=== PATIENT | female | born 1940 | race Caucasian/White ===

== ENCOUNTER 2017-03-18 22:57 | Emergency (ER) | payer MEDICARE, BC ==
[2017-03-18 23:05] VITALS: RESP 18
[2017-03-19] MEDS ORDERED: predniSONE 20 MG TAB PO STA (00:06)
[2017-03-19] MEDS ORDERED: IBUPROFEN 600 MG STARTER PACK 4 TAB BTL PO STA (00:07)
--- NOTE | 2017-03-19 00:15 | ED ---
General Adult HPI - General Chief complaint: Back Pain/Injury Stated complaint: Leg Pain Time Seen by Provider: 03/18/17 23:35 Source: patient, family, RN notes reviewed Mode of arrival: wheelchair Limitations: no limitations - History of Present Illness Initial comments: Chief complaint and history of present illness 76-year-old female here with her . The patient had for 6 months diagnosis of degenerative disc disease and right sided sciatica. The patient is seeing a chiropractor who she states is helping with the therapy provided. - Related Data Previous Rx's Medication Instructions Recorded methylPREDNISolone Dose Pack 4 mg PO DIRECTED #21 package 03/19/17 [Medrol Dose Pack] Allergies Allergy/AdvReac Type Severity Reaction Status Date / Time aspirin AdvReac Nausea Verified 03/18/17 23:05 Review of Systems ROS Statement: Those systems with pertinent positive or pertinent negative responses have been documented in the HPI. Review of systems no complaint of visual acuity changes no headache no chest pain or shortness of breath no intestinal problems. Patient reports when she is to take Tylenol threes she was constipated so she stopped them. She had used aspirin once the past and she states probably too many of them which caused stomach irritation so she does not have an ALLERGY but she did overuse and the one time. The patient has been taking Tylenol tablets 8 per day without resolution of the pain in her sciatic region. She wants something different. She has had steroids in the past and she is currently taking didn't provide and metformin to control sugars. Past medical problems significant for non-insulin diabetes mellitus, chronic back pain. She's had uterine ablation. Nonsmoker nondrinker family history noncontributory. ROS Other: All systems not noted in ROS Statement are negative. Past Medical History Past Medical History: Diabetes Mellitus Additional Past Medical History / Comment(s): Back pain History of Any Multi-Drug Resistant Organisms: None Reported Past Surgical History: Uterine Ablation Past Psychological History: No Psychological Hx Reported Smoking Status: Never smoker Past Alcohol Use History: None Reported Past Drug Use History: None Reported General Exam - General Exam Comments Initial Comments: General: The patient is awake and alert, complaining of right sided sciatic distribution discomfort. Vital signs shows temperature 98.3 pulse 97 respiratory rate 18 pulse ox 99% room air blood pressure 180/89. This will be repeated. Eye: Pupils are equal, extra-ocular movements are intact; there is normal conjunctiva bilaterally. No signs of icterus. Ears, nose, mouth and throat: There are moist mucous membranes . Neck: No complaint of neck pain. Abdomen No nausea no vomiting no constipation problems. Back: Patient has chronic back pain. She's had CAT scans. She's had diagnosis soheila degenerative disc disease by her physicians. She is currently seeing a chiropractor which she states is helping. Musculoskeletal: Patient states her peripheral leg edema significantly improved over the past 2 weeks. Neurological: Patient has right sciatic distribution discomfort radiates down the lateral aspect of the right leg. No foot drop. Patient is able to ambulate but short distances. Skin: Skin is warm and dry and no rashes or lesions are noted. Limitations: no limitations Course Vital Signs 03/18/17 23:00 Temperature 98.3 F Pulse Rate 97 Respiratory 18 Rate Blood Pressure 188/89 O2 Sat by Pulse 99 Oximetry Medical Decision Making - Medical Decision Making Medical decision-making. The patient will be placed on a Medrol Dosepak which she states has helped in the past. She'll also be advised to take ibuprofen 600 mg every 8 hours. If necessary take it with food so doesn't irritate his stomach. And follow-up with her family physician. Disposition Clinical Impression: Lumbar radiculopathy, chronic Disposition: HOME SELF-CARE Condition: Fair Instructions: Chronic Back Pain (ED) Additional Instructions: Take the Medrol Dosepak as directed. Take ibuprofen 600 mg every 8 hours with food. Follow-up with family physician Prescriptions: methylPREDNISolone Dose Pack [Medrol Dose Pack] 4 mg PO DIRECTED #21 package Referrals: Olvin Bowen MD [Primary Care Provider] - 1-2 days Time of Disposition: 00:15
[2017-03-19 00:17] VITALS: BP 163/74
[2017-03-19 00:46] VITALS: PULSE 89; TEMP 97.8
== END 2017-03-19 00:48 | disposition home or self-care (01) ==
LOC: EC 22:57
DX: M54.16 Radiculopathy, lumbar region (principal); M54.30 Sciatica, unspecified side; R60.0 Localized edema; Z88.6 Allergy status to analgesic agent
CPT/HCPCS: 99283; J7512

== ENCOUNTER 2017-05-22 15:42 | Inpatient (IN) | payer MEDICARE, BC ==
[2017-05-22] MEDS ORDERED: SODIUM CHLORIDE 0.9% 1,000 ML IV STA ×2 (16:09)
[2017-05-22] MEDS ORDERED: DILTIAZEM 5 MG/ML 5 ML VIAL IVP STA ×2 (16:13→17:19)
--- NOTE | 2017-05-22 16:26 | ED ---
General Adult HPI - General Chief complaint: Arrhythmia/Palpitations Stated complaint: poss UTI Time Seen by Provider: 05/22/17 16:09 Source: patient, RN notes reviewed, old records reviewed Mode of arrival: wheelchair Limitations: no limitations - History of Present Illness Initial comments: This is a 76-year-old female to the ER for evaluation. Patient is coming in the ER for evaluation of what she thinks is urinary tract infection as well as palpitations. Patient denies any heart history. Patient states she has history of urinary tract infections. Denies chest pain. Patient does have history of diabetes. Patient denies any fevers or cough or congestion. She does admit to increased frequency and dysuria - Related Data Home Medications Medication Instructions Recorded Confirmed Acetaminophen [Tylenol] 1,000 mg PO QID PRN 05/22/17 05/22/17 Chlorthalidone 50 mg PO DAILY 05/22/17 05/22/17 Glimepiride [Amaryl] 2 mg PO BID 05/22/17 05/22/17 metFORMIN HCL [Glucophage] 250 mg PO BID 05/22/17 05/22/17 traMADol HCL [Ultram] 50 mg PO Q4HR PRN 05/22/17 05/22/17 Allergies Allergy/AdvReac Type Severity Reaction Status Date / Time aspirin AdvReac Nausea Verified 05/22/17 16:01 Review of Systems ROS Statement: Those systems with pertinent positive or pertinent negative responses have been documented in the HPI. ROS Other: All systems not noted in ROS Statement are negative. Past Medical History Past Medical History: Diabetes Mellitus Additional Past Medical History / Comment(s): Back pain History of Any Multi-Drug Resistant Organisms: None Reported Past Surgical History: Uterine Ablation Past Psychological History: No Psychological Hx Reported Smoking Status: Never smoker Past Alcohol Use History: None Reported Past Drug Use History: None Reported General Exam Limitations: no limitations General appearance: alert, in no apparent distress, obese Head exam: Present: atraumatic, normocephalic, normal inspection Eye exam: Present: normal appearance, PERRL, EOMI. Absent: scleral icterus, conjunctival injection, periorbital swelling ENT exam: Present: normal exam, mucous membranes moist Neck exam: Present: normal inspection. Absent: tenderness, meningismus, lymphadenopathy Respiratory exam: Present: normal lung sounds bilaterally. Absent: respiratory distress, wheezes, rales, rhonchi, stridor Cardiovascular Exam: Present: tachycardia, irregular rhythm, normal heart sounds. Absent: systolic murmur, diastolic murmur, rubs, gallop, clicks GI/Abdominal exam: Present: soft, normal bowel sounds. Absent: distended, tenderness, guarding, rebound, rigid Extremities exam: Present: normal inspection, full ROM, normal capillary refill. Absent: tenderness, pedal edema, joint swelling, calf tenderness Back exam: Present: normal inspection Neurological exam: Present: alert, oriented X3, CN II-XII intact Psychiatric exam: Present: normal affect, normal mood Skin exam: Present: warm, dry, intact, normal color. Absent: rash Course Vital Signs 05/22/17 05/22/17 05/22/17 15:57 16:50 16:52 Temperature 98.3 F Pulse Rate 150 H 119 H Pulse Rate [ 155 H Gyroscope Repairer ] Respiratory 18 20 Rate Blood Pressure 117/70 129/75 O2 Sat by Pulse 100 96 Oximetry - Reevaluation(s) Reevaluation #1: 05/22/17 17:17 Patient is mouth history of improved Medical Decision Making - Medical Decision Making 76-year-old here for evaluation of UTI, not feeling well mild shortness of breath heart racing. Found to be in A. fib with RVR, patient would place her rate control anticoagulation, treated for underlying urinary tract infection. Patient be admitted for cardiac observation - Lab Data Result diagrams: 05/22/17 16:27 05/22/17 16:27 Lab Results 05/22/17 05/22/17 05/22/17 Range/Units 16:27 16:27 16:27 WBC 10.9 H (3.8-10.6) k/uL RBC 4.00 (3.80-5.40) m/uL Hgb 12.8 (11.4-16.0) gm/dL Hct 38.1 (34.0-46.0) % MCV 95.2 (80.0-100.0) fL MCH 32.0 (25.0-35.0) pg MCHC 33.6 (31.0-37.0) g/dL RDW 13.9 (11.5-15.5) % Plt Count 304 (150-450) k/uL Neutrophils % 84 % Lymphocytes % 10 % Monocytes % 4 % Eosinophils % 1 % Basophils % 0 % Neutrophils # 9.1 H (1.3-7.7) k/uL Lymphocytes # 1.0 (1.0-4.8) k/uL Monocytes # 0.4 (0-1.0) k/uL Eosinophils # 0.1 (0-0.7) k/uL Basophils # 0.0 (0-0.2) k/uL PT (9.0-12.0) sec INR (<1.2) APTT (22.0-30.0) sec Sodium 132 L (137-145) mmol/L Potassium 4.4 (3.5-5.1) mmol/L Chloride 94 L (98-107) mmol/L Carbon Dioxide 24 (22-30) mmol/L Anion Gap 14 mmol/L BUN 16 (7-17) mg/dL Creatinine 0.80 (0.52-1.04) mg/dL Est GFR (MDRD) Af Amer >60 (>60 ml/min/1.73 sqM) Est GFR (MDRD) Non-Af >60 (>60 ml/min/1.73 sqM) Glucose 204 H (74-99) mg/dL Calcium 9.9 (8.4-10.2) mg/dL Phosphorus 3.2 (2.5-4.5) mg/dL Magnesium 1.8 (1.6-2.3) mg/dL Total Bilirubin 0.6 (0.2-1.3) mg/dL AST 24 (14-36) U/L ALT 38 (9-52) U/L Alkaline Phosphatase 140 H (38-126) U/L Total Creatine Kinase 68 (30-135) U/L Total Protein 6.9 (6.3-8.2) g/dL Albumin 3.9 (3.5-5.0) g/dL Urine Color Urine Appearance (Clear) Urine pH (5.0-8.0) Ur Specific [place] (1.001-1.035) Urine Protein (Negative) Urine Glucose (UA) (Negative) Urine Ketones (Negative) Urine Blood (Negative) Urine Nitrite (Negative) Urine Bilirubin (Negative) Urine Urobilinogen (<2.0) mg/dL Ur Leukocyte Esterase (Negative) Urine RBC (0-5) /hpf Urine WBC (0-5) /hpf Ur Squamous Epith Cells (0-4) /hpf Urine Bacteria (None) /hpf Hyaline Casts (0-2) /lpf Urine Mucus (None) /hpf 05/22/17 05/22/17 Range/Units 16:27 16:27 WBC (3.8-10.6) k/uL RBC (3.80-5.40) m/uL Hgb (11.4-16.0) gm/dL Hct (34.0-46.0) % MCV (80.0-100.0) fL MCH (25.0-35.0) pg MCHC (31.0-37.0) g/dL RDW (11.5-15.5) % Plt Count (150-450) k/uL Neutrophils % % Lymphocytes % % Monocytes % % Eosinophils % % Basophils % % Neutrophils # (1.3-7.7) k/uL Lymphocytes # (1.0-4.8) k/uL Monocytes # (0-1.0) k/uL Eosinophils # (0-0.7) k/uL Basophils # (0-0.2) k/uL PT 10.7 (9.0-12.0) sec INR 1.1 (<1.2) APTT 22.9 (22.0-30.0) sec Sodium (137-145) mmol/L Potassium (3.5-5.1) mmol/L Chloride (98-107) mmol/L Carbon Dioxide (22-30) mmol/L Anion Gap mmol/L BUN (7-17) mg/dL Creatinine (0.52-1.04) mg/dL Est GFR (MDRD) Af Amer (>60 ml/min/1.73 sqM) Est GFR (MDRD) Non-Af (>60 ml/min/1.73 sqM) Glucose (74-99) mg/dL Calcium (8.4-10.2) mg/dL Phosphorus (2.5-4.5) mg/dL Magnesium (1.6-2.3) mg/dL Total Bilirubin (0.2-1.3) mg/dL AST (14-36) U/L ALT (9-52) U/L Alkaline Phosphatase (38-126) U/L Total Creatine Kinase (30-135) U/L Total Protein (6.3-8.2) g/dL Albumin (3.5-5.0) g/dL Urine Color Yellow Urine Appearance Cloudy H (Clear) Urine pH 6.5 (5.0-8.0) Ur Specific [place] 1.021 (1.001-1.035) Urine Protein 1+ H (Negative) Urine Glucose (UA) Negative (Negative) Urine Ketones Negative (Negative) Urine Blood Negative (Negative) Urine Nitrite Negative (Negative) Urine Bilirubin Negative (Negative) Urine Urobilinogen <2.0 (<2.0) mg/dL Ur Leukocyte Esterase Small H (Negative) Urine RBC 5 (0-5) /hpf Urine WBC 12 H (0-5) /hpf Ur Squamous Epith Cells 40 H (0-4) /hpf Urine Bacteria Occasional H (None) /hpf Hyaline Casts 15 H (0-2) /lpf Urine Mucus Rare H (None) /hpf - Radiology Data Radiology results: report reviewed (Chest x-ray positive for CHF), image reviewed Critical Care Time Critical Care Time: Yes Total Critical Care Time: 31 Disposition Clinical Impression: Atrial fibrillation with RVR, Urinary tract infection Disposition: ADMITTED IP TO THIS [facility] Condition: Fair Referrals: None,Stated [Primary Care Provider] - 1-2 days
[2017-05-22] MEDS ORDERED: DILTIAZEM 125 MG in SODIUM CHLORIDE 0.9% 100 ML IV ONE (16:30)
[2017-05-22 16:40] LABS: Basophils % (A) 0 %; CH 31.5; CHCM 33.2; Eosinophils # (A) 0.1 k/uL (0-0.7); Eosinophils % (A) 1 %; HCT 38.1 % (34.0-46.0); HDW 2.45; HGB 12.8 gm/dL (11.4-16.0); Luc # (Auto) 0.18; Luc % (Auto) 2; Lymphocytes % (A) 10 %; MCHC 33.6 g/dL (31.0-37.0); MCV 95.2 fL (80.0-100.0); Mean Platelet Volume 7.1; Monocytes # (A) 0.4 k/uL (0-1.0); Monocytes % (A) 4 %; Neutrophils # (A) 9.1 k/uL (1.3-7.7); Neutrophils % (A) 84 %; RDW 13.9 % (11.5-15.5); WBC 10.9 k/uL (3.8-10.6); WBC (Perox) 10.32
[2017-05-22 16:51] LABS: INR 1.1 (<1.2); Partial Thromboplastin Time 22.9 sec (22.0-30.0); Prothrombin Time 10.7 sec (9.0-12.0)
[2017-05-22 16:53] LABS: Appearance,Urine Cloudy (Clear); Bacteria,Urine Occasional /hpf; Bilirubin,Urine Negative (Negative); Glucose,Urine (UA) Negative (Negative); Ketones,Urine Negative (Negative); Leukocyte Esterase,Urine Small (Negative); Mucus,Urine Rare /hpf; Nitrite,Urine Negative (Negative); PH, Urine 6.5 (5.0-8.0); Particle Count 16026; Protein,Urine 1+ (Negative); RBC,Urine 5 /hpf (0-5); Specific Gravity,Urine 1.021 (1.001-1.035); Squamous Epithelial Cell,Urine 40 /hpf (0-4); UA Billing (MACRO vs. MICRO) MICRO; Urobilinogen,Urine <2.0 mg/dL (<2.0); WBC,Urine 12 /hpf (0-5)
[2017-05-22 16:54] LABS: ALT 38 U/L (9-52); AST 24 U/L (14-36); Alkaline Phosphatase 140 U/L (38-126); Anion Gap 14 mmol/L; Blood Urea Nitrogen 16 mg/dL (7-17); Calcium 9.9 mg/dL (8.4-10.2); Carbon Dioxide 24 mmol/L (22-30); Chloride 94 mmol/L (98-107); Glucose 204 mg/dL (74-99); Magnesium 1.8 mg/dL (1.6-2.3); Non-African American GFR(MDRD) >60 (>60 ml/min/1.73 sqM); Phosphorous 3.2 mg/dL (2.5-4.5); Potassium 4.4 mmol/L (3.5-5.1); Sodium 132 mmol/L (137-145); Total Bilirubin 0.6 mg/dL (0.2-1.3); Total Protein 6.9 g/dL (6.3-8.2)
[2017-05-22 17:05] LABS: Creatine Kinase 68 U/L (30-135)
--- NOTE | 2017-05-22 17:07 | XR ---
EXAMINATION TYPE: XR chest 2V DATE OF EXAM: 05/22/2017 COMPARISON: NONE HISTORY: Weakness and shortness of breath. TECHNIQUE: Frontal and lateral views of the chest are obtained. FINDINGS: Exam is suboptimal secondary to patient's large body habitus. There is no focal air space o pacity, pleural effusion, or pneumothorax seen. The cardiac silhouette size is mildly enlarged with possible mild central vascular congestion. Degenerative change in both shoulders and spine is present . IMPRESSION: Consider mild CHF exacerbation as there is mild cardiomegaly with suspected mild central vascular congestion, clinical correlation advised.
[2017-05-22] MEDS ORDERED: HEPARIN SODIUM,PORCINE 5,000 UNIT/ML 1 ML VIAL IV PRN (17:15)
[2017-05-22] MEDS ORDERED: HEPARIN SODIUM,PORCINE 5,000 UNIT/ML 1 ML VIAL IV ONE (17:15)
[2017-05-22] MEDS ORDERED: NITROGLYCERIN SL TABS 0.4 MG TAB SUBLINGUAL PRN (17:15)
[2017-05-22 17:18] LABS: Troponin I <0.012 ng/mL (0.000-0.034)
[2017-05-22] MEDS: HEPARIN SODIUM,PORCINE/D5W PMX 25,000 UNIT in DEXTROSE/WATER 1 500ML.BAG IV SCH (17:32)
[2017-05-22 20:58] LABS: Glucose,Whole Blood 189 mg/dL (75-99)
[2017-05-22] MEDS: GLIMEPIRIDE 2 MG TAB PO SCH ×2 (22:59→23:08)
[2017-05-22] MEDS: metFORMIN 500 MG TAB PO SCH ×2 (22:59→23:08)
[2017-05-22] MEDS: ACETAMINOPHEN TAB 500 MG TAB PO PRN (23:55)
[2017-05-23 00:42] LABS: Troponin I <0.012 ng/mL (0.000-0.034)
[2017-05-23] MEDS: HYDROcodone/APAP 5-325MG 1 EACH TAB PO PRN ×2 (00:49→20:22)
[2017-05-23 01:04] LABS: Creatine Kinase 67 U/L (30-135)
[2017-05-23 05:53] LABS: Basophils # (A) 0.1 k/uL (0-0.2); Basophils % (A) 1 %; CH 31.1; CHCM 32.3; Eosinophils # (A) 0.1 k/uL (0-0.7); Eosinophils % (A) 2 %; HCT 36.2 % (34.0-46.0); HDW 2.35; HGB 11.7 gm/dL (11.4-16.0); Luc # (Auto) 0.16; Luc % (Auto) 2; Lymphocytes % (A) 27 %; MCH 31.4 pg (25.0-35.0); MCHC 32.4 g/dL (31.0-37.0); MCV 96.9 fL (80.0-100.0); Mean Platelet Volume 7.2; Monocytes # (A) 0.5 k/uL (0-1.0); Monocytes % (A) 6 %; Neutrophils # (A) 4.8 k/uL (1.3-7.7); Neutrophils % (A) 63 %; RBC 3.74 m/uL (3.80-5.40); RDW 14.1 % (11.5-15.5); WBC 7.6 k/uL (3.8-10.6); WBC (Perox) 7.66
[2017-05-23 06:06] LABS: Glucose,Whole Blood 141 mg/dL (75-99)
[2017-05-23 06:27] LABS: Creatine Kinase 56 U/L (30-135)
[2017-05-23 06:29] LABS: ALT 32 U/L (9-52); AST 27 U/L (14-36); Alkaline Phosphatase 131 U/L (38-126); Anion Gap 12 mmol/L; Blood Urea Nitrogen 17 mg/dL (7-17); Calcium 9.6 mg/dL (8.4-10.2); Carbon Dioxide 22 mmol/L (22-30); Chloride 99 mmol/L (98-107); Cholesterol 164 mg/dL (<200); Glucose 141 mg/dL (74-99); HDL Cholesterol 54 mg/dL (40-60); Non-African American GFR(MDRD) >60 (>60 ml/min/1.73 sqM); Sodium 133 mmol/L (137-145); Total Bilirubin 0.6 mg/dL (0.2-1.3); Total Protein 6.2 g/dL (6.3-8.2); Triglycerides 94 mg/dL (<150)
[2017-05-23] MEDS: metFORMIN 500 MG TAB PO SCH ×2 (06:34→19:08)
[2017-05-23] MEDS: GLIMEPIRIDE 2 MG TAB PO SCH ×2 (06:34→19:08)
[2017-05-23] MEDS: INSULIN LISPRO (humaLOG) 300 UNIT/3 ML VIAL SQ SCH ×4 (06:38→21:50)
[2017-05-23 06:40] LABS: Creatine Kinase MB 1.3 ng/mL (0.0-2.4); Troponin I <0.012 ng/mL (0.000-0.034)
[2017-05-23] MEDS: ACETAMINOPHEN TAB 500 MG TAB PO PRN ×2 (08:45→19:07)
[2017-05-23] MEDS: ATORVASTATIN 80 MG TAB PO SCH (08:46)
--- NOTE | 2017-05-23 08:47 | P.CRDCN ---
History of Present Illness Consult date: 05/23/17 Requesting physician: Yao Barrett Consult reason: atrial fibrillation Chief complaint: Dysuria History of present illness: This is a 76 stroke female with history of hypertension, diabetes, obesity, who presents to the hospital with symptoms of burning on urination. She denies any overt shortness of breath, she does have peripheral edema which she states she's been dealing with for quite some time. On presentation here an EKG was performed which revealed atrial fibrillation with rapid ventricular response. According to the patient she has no prior history of atrial fibrillation, she denies any chest discomfort denies palpitations denies shortness of breath. Chest x-ray on admission revealed mild congestive heart failure exacerbation. White blood cell count on admission 10.9, 7.6 this morning. Hemoglobin 11.7. Sodium 133, potassium 4.0, BUN 17, creatinine 0.8. Troponins have been negative 3. TSH 2.1. Cholesterol 164, triglycerides 94, LDL 91, HDL 54. Positive UTI. Patient was initiated on IV heparin as well as IV Cardizem in the emergency room. She continues to be in atrial fibrillation this morning with a heart rate in the 130s. Past Medical History Past Medical History: Diabetes Mellitus Additional Past Medical History / Comment(s): Back pain History of Any Multi-Drug Resistant Organisms: None Reported Past Surgical History: Uterine Ablation Past Anesthesia/Blood Transfusion Reactions: No Reported Reaction Past Psychological History: No Psychological Hx Reported Smoking Status: Never smoker Past Alcohol Use History: None Reported Past Drug Use History: None Reported - Past Family History Mother Family Medical History: Unable to Obtain Father Family Medical History: Unable to Obtain Medications and Allergies Home Medications Medication Instructions Recorded Confirmed Type Acetaminophen [Tylenol] 1,000 mg PO QID PRN 05/22/17 05/22/17 History Chlorthalidone 50 mg PO DAILY 05/22/17 05/22/17 History Glimepiride [Amaryl] 2 mg PO BID 05/22/17 05/22/17 History metFORMIN HCL [Glucophage] 250 mg PO BID 05/22/17 05/22/17 History traMADol HCL [Ultram] 50 mg PO Q4HR PRN 05/22/17 05/22/17 History Allergies Allergy/AdvReac Type Severity Reaction Status Date / Time aspirin AdvReac Nausea Verified 05/22/17 16:01 Physical Exam Vitals: Vital Signs Temp Pulse Pulse Resp BP BP Pulse Ox 05/23/17 04:00 97.5 F L 117 H 18 103/65 95 05/23/17 00:00 96.7 F L 106 H 17 111/66 96 05/22/17 20:00 97.6 F 136 H 18 110/62 98 05/22/17 18:24 97.6 F 139 H 16 127/80 98 05/22/17 18:05 97.7 F 139 H 16 127/80 98 05/22/17 18:01 98.9 F 112 H 20 100/67 95 05/22/17 17:43 112 H 18 100/67 96 05/22/17 17:26 135 H 20 180/93 95 05/22/17 16:52 155 H 05/22/17 16:50 119 H 20 129/75 96 05/22/17 15:57 98.3 F 150 H 18 117/70 100 Intake and Output 05/22/17 05/23/17 05/23/17 22:59 06:59 14:59 Intake Total 0 259 Balance 0 259 Intake: Intake, IV Titration 259 Amount Heparin Sodium,Porcine/ 259 D5w Pmx 25,000 unit In Dextrose/Water 1 500ml. bag @ 20 mls/hr IV .Q24H [facility] Rx#:[id number] Oral 0 Other: # Voids 2 Weight 103.873 kg 104.7 kg PHYSICAL EXAMINATION: HEENT: Head is atraumatic, normocephalic. Pupils equal, round. Neck is supple. There is elevated jugular venous pressure. HEART EXAMINATION: Heart S1 and S2 irregularly irregular systolic murmur is heard. CHEST EXAMINATION: Lungs reveal diminished air entry to bilateral bases ABDOMEN: Soft, obese, nontender. Bowel sounds are heard. No organomegaly noted. EXTREMITIES:[ 2+ peripheral pulses with 1+ evidence of peripheral edema , significant bilateral lower extremity redness. NEUROLOGIC patient is awake, alert and oriented -3. . Results 05/23/17 05:40 05/23/17 05:40 Cardiac Enzymes 05/22/17 05/22/17 05/22/17 Range/Units 16:27 16:27 23:32 AST 24 (14-36) U/L CK-MB (CK-2) 2.0 (0.0-2.4) ng/mL Troponin I <0.012 <0.012 (0.000-0.034) ng/mL 05/23/17 05/23/17 05/23/17 Range/Units 01:34 05:40 05:40 AST 27 (14-36) U/L CK-MB (CK-2) 1.3 1.3 (0.0-2.4) ng/mL Troponin I <0.012 (0.000-0.034) ng/mL Coagulation 05/22/17 05/23/17 Range/Units 16:27 05:40 PT 10.7 (9.0-12.0) sec APTT 22.9 31.8 H (22.0-30.0) sec Lipids 05/23/17 Range/Units 05:40 Triglycerides 94 (<150) mg/dL Cholesterol 164 (<200) mg/dL HDL Cholesterol 54 (40-60) mg/dL CBC 05/22/17 05/23/17 Range/Units 16:27 05:40 WBC 10.9 H 7.6 (3.8-10.6) k/uL RBC 4.00 3.74 L (3.80-5.40) m/uL Hgb 12.8 11.7 (11.4-16.0) gm/dL Hct 38.1 36.2 (34.0-46.0) % Plt Count 304 258 (150-450) k/uL Comprehensive Metabolic Panel 05/22/17 05/23/17 Range/Units 16:27 05:40 Sodium 132 L 133 L (137-145) mmol/L Potassium 4.4 4.0 (3.5-5.1) mmol/L Chloride 94 L 99 (98-107) mmol/L Carbon Dioxide 24 22 (22-30) mmol/L BUN 16 17 (7-17) mg/dL Creatinine 0.80 0.80 (0.52-1.04) mg/dL Glucose 204 H 141 H (74-99) mg/dL Calcium 9.9 9.6 (8.4-10.2) mg/dL AST 24 27 (14-36) U/L ALT 38 32 (9-52) U/L Alkaline Phosphatase 140 H 131 H (38-126) U/L Total Protein 6.9 6.2 L (6.3-8.2) g/dL Albumin 3.9 3.4 L (3.5-5.0) g/dL Current Medications Generic Name Dose Route Start Last Admin Trade Name Ansonq PRN Reason Stop Dose Admin Acetaminophen 1,000 mg 05/22/17 21:38 05/22/17 23:55 Tylenol Tab PO 1,000 mg QID PRN Administration Pain Scale 1 to 5 Hydrocodone Bitart/Acetaminophen 1 each 05/23/17 00:17 05/23/17 00:49 Rufus 5-325 PO 1 each Q4HR PRN Administration Pain Scale 6 to 10 Atorvastatin Calcium 80 mg 05/23/17 09:00 Lipitor PO DAILY MINOO Glimepiride 2 mg 05/22/17 21:45 05/23/17 06:34 Amaryl PO 2 mg AC-BID MINOO Administration Heparin Sodium (Porcine) 0 unit 05/22/17 17:15 Heparin IV Q6HR PRN Low PTT Protocol Diltiazem HCl 125 mg/ Sodium 125 mls @ 5 mls/hr 05/22/17 16:30 05/22/17 16:46 Chloride IV 05/23/17 16:29 5 mg/hr .Q24H ONE 5 mls/hr 5 MG/HR Administration Heparin Sodium/Dextrose 25,000 500 mls @ 20 mls/hr 05/22/17 17:15 05/23/17 06 :29 unit/ IV Solution IV 12.62 units/kg/hr .Q24H MINOO 26.21 mls/hr Protocol Titration Ceftriaxone Sodium 1,000 mg/ 50 mls @ 100 mls/hr 05/23/17 09:00 Sodium Chloride IVPB Q12HR [facility] Insulin Human Lispro 0 unit 05/23/17 07:30 05/23/17 06:38 Humalog SQ Not Given ACHS [facility] Protocol Metformin HCl 250 mg 05/22/17 21:45 05/23/17 06:34 Glucophage PO 250 mg AC-BID MINOO Administration Nitroglycerin 0.4 mg 05/22/17 17:15 Nitrostat SUBLINGUAL Q5M PRN Chest Pain Intake and Output 05/22/17 05/23/17 05/23/17 22:59 06:59 14:59 Intake Total 0 259 Balance 0 259 Intake: Intake, IV Titration 259 Amount Heparin Sodium,Porcine/ 259 D5w Pmx 25,000 unit In Dextrose/Water 1 500ml. bag @ 20 mls/hr IV .Q24H [facility] Rx#:[id number] Oral 0 Other: # Voids 2 Weight 103.873 kg 104.7 kg 05/23/17 05:40 05/23/17 05:40 EKG Interpretations (text) EKG shows atrial fibrillation with rapid ventricular response Assessment and Plan Plan: Assessment and plan #1 atrial fibrillation with rapid ventricular response, appears to be of new onset for this patient. TSH normal #2 congestive cardiac failure, LV function unknown at this time. #3 hypertension #4 diabetes # 5 obesity #6 UTI, on IV antibiotics Plan We'll obtain an echocardiogram with Doppler study to assess the patient's LV function. We will also add a beta ramses to the patient's medication regime. Initiate IV Lasix. Further recommendations to follow. DNP note has been reviewed, I agree with a documented findings and plan of care. Patient was seen and examined.
[2017-05-23] MEDS: METOPROLOL TARTRATE 25 MG TAB PO SCH ×2 (10:20→20:23)
[2017-05-23] MEDS: FUROSEMIDE 10 MG/ML 4 ML VIAL IV SCH ×2 (10:20→20:23)
--- NOTE | 2017-05-23 10:59 | ECHOF ---
Referral Reason:CHF MEASUREMENTS -------- HEIGHT: 152.4 cm WEIGHT: 103.9 kg BP: 103/65 RVIDd: 3.1 cm (< 3.3) IVSd: 1.2 cm (0.6 - 1.1) LVIDd: 3.0 cm (3.9 - 5.3) LVPWd: 1.3 cm (0.6 - 1.1) IVSs: 1.5 cm LVIDs: 2.5 cm LVPWs: 1.6 cm LA Diam: 3.3 cm (2.7 - 3.8) LAESV Index (A-L): 36.21 ml/m Ao Diam: 3.1 cm (2.0 - 3.7) AV Cusp: 1.7 cm (1.5 - 2.6) MV EXCURSION: 14.642 mm (> 18.000) MV EF SLOPE: 152 mm/s (70 - 150) EPSS: 0.4 cm RAP: 15.00 mmHg FINDINGS -------- Atrial fibrillation. This was a technically difficult study with suboptimal parasternal views. The left ventricular size is normal. There is mild concentric left ventricular hypertrophy. Overall left ventricular systolic function is low-normal with, an EF between 50 - 55 %. The right ventricle is normal in size. LA is moderately dilated 34-39 ml/m2 The right atrium is normal in size. Aortic valve is trileaflet and is mildly thickened. The mitral valve leaflets are mildly thickened. Mild mitral annular calcification present. There is trace mitral regurgitation. Trace tricuspid regurgitation present. The pulmonic valve was not well visualized. The aortic root size is normal. The inferior vena cava is dilated with no significant inspiratory collapse which is consistent estimated right atrial pressure of >15 mmHg. There is no pericardial effusion. CONCLUSIONS -------- 1. Atrial fibrillation. 2. Mild mitral annular calcification present. 3. There is trace mitral regurgitation. 4. Trace tricuspid regurgitation present. 5. The pulmonic valve was not well visualized. 6. The aortic root size is normal. 7. The inferior vena cava is dilated with no significant inspiratory collapse which is consistent estimated right atrial pressure of >15 mmHg. 8. There is no pericardial effusion. 9. This was a technically difficult study with suboptimal parasternal views. 10. The left ventricular size is normal. 11. There is mild concentric left ventricular hypertrophy. 12. Overall left ventricular systolic function is low-normal with, an EF between 50 - 55 %. 13. The right ventricle is normal in size. 14. LA is moderately dilated 34-39 ml/m2 15. Aortic valve is trileaflet and is mildly thickened. 16. The mitral valve leaflets are mildly thickened. FLY WORKER: Marcelina Valdez RDCS
[2017-05-23 11:57] LABS: Glucose,Whole Blood 154 mg/dL (75-99)
--- NOTE | 2017-05-23 14:12 | HP ---
DATE OF ADMISSION: 05/22/17 CHIEF COMPLAINT: Palpitations. HISTORY OF PRESENT ILLNESS: This is a 76-year-old woman with a past medical history of multiple medical problems including diabetes mellitus, back pain, not being followed by any primary care physician in the outpatient setting was complaining of palpitations. The patient came to the ER. The patient also had possible UTI. The patient had atrial fibrillation. The patient was started on Cardizem drip at 5 mg. The rate is being controlled at this time. There is no history of fever, rigors or chills. There is no history of any headache, loss of consciousness or seizures. White count 10.9 and UA shows evidence of UTI also. The patient is being initiated on IV antibiotics as well. Past medical history of back pain, diabetes mellitus. Medications prior to admission are: 1. Ultram 50 mg q.4h prn. 2. Glucophage 250 mg b.i.d. 3. Amaryl 2 mg po b.i.d. 5. Tylenol 1000 mg q.i.d. prn ALLERGIES: ASPIRIN. FAMILY HISTORY: No history of heart disease or strokes in the family. SOCIAL HISTORY: No history of smoking. No history of alcohol intake. REVIEW OF SYSTEMS: ENT: No diminished vision. No diminished hearing. Cardiovascular: As mentioned earlier. Respiratory: No cough, hemoptysis. GI: No nausea or vomiting. : No dysuria. Nervous system: No numbness or weakness. Allergy/Immunology: No asthma or hayfever. Musculoskeletal: As mentioned earlier. Hematology/Oncology: No history of anemia. Endocrine: No history of diabetes mellitus or hypothyroidism. Constitutional: As mentioned earlier. Dermatology: Negative. Rheumatology: Negative. Psychiatry: As mentioned earlier. PHYSICAL EXAMINATION: Alert and oriented times three. Pulse 106 irregular. Blood pressure 111/66. Respiratory rate 17, temperature 96.7. Pulse ox 96% on room air. HEENT: Conjunctivae normal. Oral mucosa moist. NECK: No JVD. No carotid bruit. No lymph node enlargement. Cardiovascular: S1, S2 irregular. No murmur. No thrills. No S3. Respiratory: Breath sounds diminished at the bases. No rhonchi and no crackles. Abdomen is soft. Nontender. No mass palpable. Legs: No edema. No swelling. Nervous system : Higher functions as mentioned earlier. Moves all four limbs. No focal motor or sensory deficits. Lymphatics: No lymph nodes palpable in the neck, axillae or groin. SKIN: No ulcer, rash or bleeding. LABS: WBC 10.9, sodium 132. UA noted. ASSESSMENT: 1. Atrial fibrillation with fast ventricular rate, new onset. 2. Urinary tract infection. 3. Increased WBC. 4. Diabetes mellitus Type 2. 5. History of back pain, degenerative joint disease. 6. History of uterine ablation. RECOMMENDATIONS AND DISCUSSION: In this 76-year-old woman who presented with multiple complex medical issues, we will monitor the patient closely. Continue the current medications. Continue symptomatic treatment. Continue Cardizem. Cardiology has been consulted. 2D echo with Doppler. Otherwise TSH is normal. Repeat labs also will be recommended. Otherwise, prognosis is guarded because of the multiple medical problems. Further recommendations to follow. Also recommend the patient to follow up with the primary physician closely also. SHIVANI
[2017-05-23 15:22] LABS: Hemoglobin A1C 7.2 % (4.2-6.1)
[2017-05-23] MEDS: HEPARIN SODIUM,PORCINE/D5W PMX 25,000 UNIT in DEXTROSE/WATER 1 500ML.BAG IV SCH (19:10)
[2017-05-23 20:09] LABS: Glucose,Whole Blood 191 mg/dL (75-99)
[2017-05-23 21:21] LABS: Glucose,Whole Blood 170 mg/dL (75-99)
[2017-05-24] MEDS: HYDROcodone/APAP 5-325MG 1 EACH TAB PO PRN (00:26)
[2017-05-24] MEDS ORDERED: DILTIAZEM 125 MG in SODIUM CHLORIDE 0.9% 100 ML IV SCH (00:30)
[2017-05-24 02:28] LABS: Basophils # (A) 0.1 k/uL (0-0.2); Basophils % (A) 1 %; CH 31.2; CHCM 32.5; Eosinophils # (A) 0.1 k/uL (0-0.7); Eosinophils % (A) 1 %; HCT 34.2 % (34.0-46.0); HDW 2.35; HGB 11.1 gm/dL (11.4-16.0); Luc # (Auto) 0.19; Luc % (Auto) 2; Lymphocytes # (A) 2.5 k/uL (1.0-4.8); Lymphocytes % (A) 26 %; MCH 31.3 pg (25.0-35.0); MCHC 32.5 g/dL (31.0-37.0); MCV 96.2 fL (80.0-100.0); Mean Platelet Volume 7.1; Monocytes # (A) 0.6 k/uL (0-1.0); Monocytes % (A) 6 %; Neutrophils # (A) 5.9 k/uL (1.3-7.7); Neutrophils % (A) 64 %; RBC 3.56 m/uL (3.80-5.40); RDW 13.7 % (11.5-15.5); WBC 9.3 k/uL (3.8-10.6); WBC (Perox) 9.74
[2017-05-24 02:40] LABS: Anion Gap 14 mmol/L; Blood Urea Nitrogen 23 mg/dL (7-17); Calcium 9.5 mg/dL (8.4-10.2); Carbon Dioxide 22 mmol/L (22-30); Chloride 98 mmol/L (98-107); Glucose 133 mg/dL (74-99); Non-African American GFR(MDRD) >60 (>60 ml/min/1.73 sqM); Potassium 3.7 mmol/L (3.5-5.1); Sodium 134 mmol/L (137-145)
[2017-05-24] MEDS: ACETAMINOPHEN TAB 500 MG TAB PO PRN ×3 (03:43→21:23)
[2017-05-24 06:07] LABS: Glucose,Whole Blood 163 mg/dL (75-99)
[2017-05-24] MEDS: GLIMEPIRIDE 2 MG TAB PO SCH ×2 (06:32→17:08)
[2017-05-24] MEDS: INSULIN LISPRO (humaLOG) 300 UNIT/3 ML VIAL SQ SCH ×4 (06:32→21:24)
[2017-05-24] MEDS: metFORMIN 500 MG TAB PO SCH ×2 (06:33→17:08)
[2017-05-24] MEDS: ATORVASTATIN 80 MG TAB PO SCH ×2 (08:23→10:36)
[2017-05-24] MEDS: FUROSEMIDE 10 MG/ML 4 ML VIAL IV SCH ×2 (08:23→21:24)
[2017-05-24] MEDS: METOPROLOL TARTRATE 25 MG TAB PO SCH (08:23)
[2017-05-24] MEDS: METOPROLOL TARTRATE 50 MG TAB PO SCH ×2 (10:43→21:23)
[2017-05-24] MEDS ORDERED: METOPROLOL TARTRATE 25 MG TAB PO STA (10:44)
[2017-05-24] MEDS: HEPARIN SODIUM,PORCINE/D5W PMX 25,000 UNIT in DEXTROSE/WATER 1 500ML.BAG IV SCH ×2 (11:01→22:05)
[2017-05-24 11:32] LABS: Glucose,Whole Blood 188 mg/dL (75-99)
[2017-05-24 12:21] VITALS: BMI 44.9
--- NOTE | 2017-05-24 15:00 | PN ---
DATE OF SERVICE: 05/23/17 This 76-year-old woman who was admitted with atrial fibrillation with fast ventricular rate is on Cardizem. The patient is being closely monitored. Cardiology has seen the patient. TSH was normal. The patient also had CHF. 2D echo with Doppler was done which showed ejection fraction about 50 to 55%. There is no history of fever, rigors or chills. Past medical history reviewed. REVIEW OF SYSTEM: Cardiovascular: As mentioned earlier. Respiratory: As mentioned earlier. GI: As mentioned earlier. : No dysuria. Nervous system: No numbness or weakness. Current medications are reviewed and include: 1. Tylenol prn. 2. [place]. 3. Lipitor. 4. Rocephin. 5. Lasix. 6. Amaryl. 7. Glucophage. 8. Lopressor. 9. Nitrostat. Physical examination: On exam, alert and oriented times three. Pulse is 130. Blood pressure is 130/77. Respiratory rate 18. Temperature 98.8, pulse ox 97% on room air. HEENT: Conjunctivae normal. Oral mucosa moist. NECK: No JVD. No carotid bruit. No lymph node enlargement. Cardiovascular: S1, S2 muffled. Tachycardic and irregular. Ejection systolic murmur present. Respiratory: Breath sounds diminished at the bases. A few scattered rhonchi. Abdomen is soft. Nontender. Legs: Minimal leg swelling noted. Nervous system : No focal deficits. The labs are WBC 7.7, hemoglobin 11.7. Otherwise UA noted. FINAL ASSESSMENT: 1. Atrial fibrillation with fast ventricular rate, new onset. 2. Congestive heart failure, acute exacerbation with acute on chronic diastolic dysfunction. 3. Urinary tract infection. 4. Increased WBC. 5. Diabetes mellitus Type 2. 6. History of back pain, degenerative joint disease. 7. Uterine ablation. RECOMMENDATIONS AND DISCUSSION: Recommend to continue the current medications, continue symptomatic treatment. Continue with diuretics. Continue empiric antibiotics. Closely follow with cardiology. Increase ambulation. Guarded prognosis. Further recommendations to follow. MTDD
--- NOTE | 2017-05-24 15:09 | P.PN ---
Subjective This is a 76 stroke female with history of hypertension, diabetes, obesity, who presents to the hospital with symptoms of burning on urination. She denies any overt shortness of breath, she does have peripheral edema which she states she's been dealing with for quite some time. On presentation here an EKG was performed which revealed atrial fibrillation with rapid ventricular response. According to the patient she has no prior history of atrial fibrillation, she denies any chest discomfort denies palpitations denies shortness of breath. Chest x-ray on admission revealed mild congestive heart failure exacerbation. White blood cell count on admission 10.9, 7.6 this morning. Hemoglobin 11.7. Sodium 133, potassium 4.0, BUN 17, creatinine 0.8. Troponins have been negative 3. TSH 2.1. Cholesterol 164, triglycerides 94, LDL 91, HDL 54. Positive UTI. Patient was initiated on IV heparin as well as IV Cardizem in the emergency room. She continues to be in atrial fibrillation this morning with a heart rate in the 130s. 05/24/2017. Patient seen and examined this morning, overall feeling better today. Heart rate still in the 1 teens to 120s. We will increase the dose of beta ramses to 50 mg twice a day and discontinue the Cardizem drip. We will also discontinue the IV heparin and initiate the patient on Eliquis. Echocardiogram with Doppler study was performed which revealed an ejection fraction of 50-55% Objective - Vital Signs Vital signs: Vital Signs Temp 98.2 F 05/24/17 11:54 Pulse 102 H 05/24/17 11:54 Resp 20 05/24/17 11:54 BP 111/56 05/24/17 11:54 Pulse Ox 92 L 05/24/17 11:54 Intake & Output 05/23/17 05/24/17 05/24/17 18:59 06:59 18:59 Intake Total 478.000 444.632 242.285 Output Total 475 2000 200 Balance 3.000 -1555.368 42.285 Weight 104.5 kg 104.5 kg Intake: IV 100 cefTRIAXone 1,000 mg In 100 Sodium Chloride 0.9% 50 ml @ 100 mls/hr IVPB Q12HR [facility] Rx#:[id number] Intake, IV Titration 241.000 344.632 242.285 Amount Diltiazem 125 mg In 15 Sodium Chloride 0.9% 100 ml @ 5 MG/HR 5 mls/hr IV .Q24H [facility] Rx#:[id number] Diltiazem 125 mg In 25 46.917 Sodium Chloride 0.9% 100 ml @ 5 MG/HR 5 mls/hr IV .Q24H [facility] Rx#:[id number] Heparin Sodium,Porcine/ 241.000 304.632 195.368 D5w Pmx 25,000 unit In Dextrose/Water 1 500ml. bag @ 20 mls/hr IV .Q24H [facility] Rx#:[id number] Oral 237 Output: Urine 475 2000 200 Other: Voiding Method Toilet # Voids 3 1 - Exam PHYSICAL EXAMINATION: HEENT: Head is atraumatic, normocephalic. Pupils equal, round. Neck is supple. There is elevated jugular venous pressure. HEART EXAMINATION: Heart S1 and S2 irregularly irregular systolic murmur is heard. CHEST EXAMINATION: Lungs reveal diminished air entry to bilateral bases ABDOMEN: Soft, obese, nontender. Bowel sounds are heard. No organomegaly noted. EXTREMITIES:[ 2+ peripheral pulses with 1+ evidence of peripheral edema , significant bilateral lower extremity redness. NEUROLOGIC patient is awake, alert and oriented -3. . - Labs CBC & Chem 7: 05/24/17 02:10 05/24/17 02:10 Labs: Abnormal Lab Results - Last 24 Hours (Table) 05/23/17 05/23/17 05/23/17 Range/Units 11:55 16:52 19:40 RBC (3.80-5.40) m/uL Hgb (11.4-16.0) gm/dL APTT 38.7 H (22.0-30.0) sec Sodium (137-145) mmol/L BUN (7-17) mg/dL Glucose (74-99) mg/dL POC Glucose (mg/dL) 191 H (75-99) mg/dL Hemoglobin A1c 7.2 H (4.2-6.1) % 05/23/17 05/24/17 05/24/17 Range/Units 21:19 02:10 02:10 RBC 3.56 L (3.80-5.40) m/uL Hgb 11.1 L (11.4-16.0) gm/dL APTT (22.0-30.0) sec Sodium 134 L (137-145) mmol/L BUN 23 H (7-17) mg/dL Glucose 133 H (74-99) mg/dL POC Glucose (mg/dL) 170 H (75-99) mg/dL Hemoglobin A1c (4.2-6.1) % 05/24/17 05/24/17 05/24/17 Range/Units 02:10 05:58 09:34 RBC (3.80-5.40) m/uL Hgb (11.4-16.0) gm/dL APTT 82.6 H 82.9 H (22.0-30.0) sec Sodium (137-145) mmol/L BUN (7-17) mg/dL Glucose (74-99) mg/dL POC Glucose (mg/dL) 163 H (75-99) mg/dL Hemoglobin A1c (4.2-6.1) % 05/24/17 Range/Units 11:31 RBC (3.80-5.40) m/uL Hgb (11.4-16.0) gm/dL APTT (22.0-30.0) sec Sodium (137-145) mmol/L BUN (7-17) mg/dL Glucose (74-99) mg/dL POC Glucose (mg/dL) 188 H (75-99) mg/dL Hemoglobin A1c (4.2-6.1) % Microbiology - Last 24 Hours (Table) 05/22/17 16:27 Urine Culture - Preliminary Urine,Clean Catch Gram Neg Bacilli Assessment and Plan Plan: Assessment and plan #1 atrial fibrillation with rapid ventricular response, appears to be of new onset for this patient. TSH normal #2 congestive cardiac failure, LV function unknown at this time. #3 hypertension #4 diabetes # 5 obesity #6 UTI, on IV antibiotics Plan Echo cardiogram with Doppler study was performed which revealed normal left ventricular systolic function. We will discontinue the IV heparin and initiate Eliquis and increase beta ramses to 50 twice a day. Discontinue Cardizem drip continue IV Lasix. DNP note has been reviewed, I agree with a documented findings and plan of care. Patient was seen and examined.
[2017-05-24 16:46] LABS: Glucose,Whole Blood 150 mg/dL (75-99)
[2017-05-24 21:21] LABS: Glucose,Whole Blood 189 mg/dL (75-99)
[2017-05-25] MEDS: ACETAMINOPHEN TAB 500 MG TAB PO PRN ×3 (03:44→23:14)
[2017-05-25 06:03] LABS: Glucose,Whole Blood 136 mg/dL (75-99)
--- NOTE | 2017-05-25 07:10 | PN ---
DATE OF SERVICE: 05/24/2017 This 76-year-old woman was admitted with atrial fibrillation, also UTI also. No chest pain or palpitation, no fever. On exam, alert and oriented x3. Pulse 72, blood pressure 111/56, respirations 20, temperature is 98.4, pulse ox 92% on room air. HEENT: Conjunctivae normal. NECK: No jugular venous distension. CARDIOVASCULAR: S1, S2, muffled, regular rhythm. RESPIRATIONS: Breath sounds diminished at the bases, no rhonchi, no crackles. ABDOMEN: Soft, nontender. LEGS: No edema, no swelling. NERVOUS SYSTEM: No focal deficits. LABS: WBC is 9.3, hemoglobin is 11.1. ASSESSMENT: 1. Atrial fibrillation with fast ventricular rate. 2. Congestive heart failure exacerbation. 3. Acute on chronic diastolic dysfunction. 4. Urinary tract infection, present on admission. 5. Increased WBC. 6. Diabetes mellitus type 2. RECOMMENDATION: Recommend to continue with the current medication. Continue with antibiotics and closely follow with Cardiology. Patient is still on a Cardizem and heparin drips. Further recommendations to follow. MTDD
[2017-05-25] MEDS: metFORMIN 500 MG TAB PO SCH ×2 (07:13→17:08)
[2017-05-25] MEDS: INSULIN LISPRO (humaLOG) 300 UNIT/3 ML VIAL SQ SCH ×4 (07:13→21:29)
[2017-05-25] MEDS: GLIMEPIRIDE 2 MG TAB PO SCH ×2 (07:13→17:07)
--- NOTE | 2017-05-25 08:14 | PN ---
DATE OF SERVICE: 05/24/2017 This 76-year-old woman who was admitted with atrial fibrillation with a fast ventricular rate was on Cardizem. The patient also has CHF. The patient also has UTI, gram negative bacilli grown from the culture. No fever, no cough. PHYSICAL EXAMINATION: The patient is alert and oriented x3. Pulse is 102, blood pressure 110/57, respirations 20, temperature 98.2, pulse ox 90% on room air. HEENT: Conjunctivae normal. Oral mucosa moist. NECK: No jugular venous distention, no thyroid enlargement. CARDIOVASCULAR: S1/S2 heard, muffled. RESPIRATIONS: Diminished breath sounds, especially at the bases. No rhonchi, no crackles. ABDOMEN: Soft, nontender, no mass palpable. LEGS: No edema.. NERVOUS SYSTEM: Nonfocal. LABS: WBC 9, hemoglobin 11.1. ASSESSMENT: 1. Atrial fibrillation with fast ventricular rate, new onset. 2. Congestive heart failure acute exacerbation with acute on chronic diastolic dysfunction. 3. Urinary tract infection. 4. Increased white blood cells. 5. Diabetes mellitus type 2. 6. History of severe back pain and degenerative joint disease. 7. Uterine ablation. RECOMMENDATIONS AND DISCUSSION: Recommend to continue current medication, continue symptomatic treatment. Otherwise, at his time I would recommend monitor closely, avoid beta blockers, DVT prophylaxis, incentive spirometry, resume the home medications. Further recommendations to follow. MTDD
[2017-05-25] MEDS: ATORVASTATIN 80 MG TAB PO SCH (08:39)
[2017-05-25] MEDS: METOPROLOL TARTRATE 50 MG TAB PO SCH ×2 (08:39→21:29)
[2017-05-25] MEDS: FUROSEMIDE 10 MG/ML 4 ML VIAL IV SCH ×2 (08:39→21:29)
[2017-05-25 10:51] LABS: Basophils # (A) 0.1 k/uL (0-0.2); Basophils % (A) 0 %; CH 30.9; CHCM 33.4; Eosinophils # (A) 0.1 k/uL (0-0.7); Eosinophils % (A) 1 %; HCT 31.4 % (34.0-46.0); HDW 2.44; Luc # (Auto) 0.19; Luc % (Auto) 2; Lymphocytes # (A) 3.2 k/uL (1.0-4.8); Lymphocytes % (A) 30 %; MCH 32.4 pg (25.0-35.0); MCHC 34.8 g/dL (31.0-37.0); Mean Platelet Volume 6.9; Monocytes # (A) 0.6 k/uL (0-1.0); Monocytes % (A) 5 %; Neutrophils # (A) 6.6 k/uL (1.3-7.7); Neutrophils % (A) 62 %; RBC 3.38 m/uL (3.80-5.40); RDW 13.5 % (11.5-15.5); WBC 10.7 k/uL (3.8-10.6); WBC (Perox) 11.79
[2017-05-25 11:02] LABS: Anion Gap 14 mmol/L; Blood Urea Nitrogen 24 mg/dL (7-17); Calcium 9.2 mg/dL (8.4-10.2); Carbon Dioxide 25 mmol/L (22-30); Chloride 93 mmol/L (98-107); Glucose 160 mg/dL (74-99); Non-African American GFR(MDRD) 59 (>60 ml/min/1.73 sqM); Potassium 3.8 mmol/L (3.5-5.1); Sodium 132 mmol/L (137-145)
[2017-05-25] MEDS: APIXABAN 2.5 MG TABLET PO SCH ×2 (11:29→21:29)
[2017-05-25] MEDS ORDERED: traMADol 50 MG TAB PO PRN (11:34)
[2017-05-25 11:48] LABS: Glucose,Whole Blood 170 mg/dL (75-99)
--- NOTE | 2017-05-25 15:00 | P.PN ---
Subjective This is a 76 stroke female with history of hypertension, diabetes, obesity, who presents to the hospital with symptoms of burning on urination. She denies any overt shortness of breath, she does have peripheral edema which she states she's been dealing with for quite some time. On presentation here an EKG was performed which revealed atrial fibrillation with rapid ventricular response. According to the patient she has no prior history of atrial fibrillation, she denies any chest discomfort denies palpitations denies shortness of breath. Chest x-ray on admission revealed mild congestive heart failure exacerbation. White blood cell count on admission 10.9, 7.6 this morning. Hemoglobin 11.7. Sodium 133, potassium 4.0, BUN 17, creatinine 0.8. Troponins have been negative 3. TSH 2.1. Cholesterol 164, triglycerides 94, LDL 91, HDL 54. Positive UTI. Patient was initiated on IV heparin as well as IV Cardizem in the emergency room. She continues to be in atrial fibrillation this morning with a heart rate in the 130s. 05/24/2017. Patient seen and examined this morning, overall feeling better today. Heart rate still in the 1 teens to 120s. We will increase the dose of beta ramses to 50 mg twice a day and discontinue the Cardizem drip. We will also discontinue the IV heparin and initiate the patient on Eliquis. Echocardiogram with Doppler study was performed which revealed an ejection fraction of 50-55% 05/25/2017. Patient seen and examined this morning, weight is up 1 kg. She states that she is urinating quite a bit. Creatinine 0.9 today. Potassium 3.8. Heart rate remains in the 80s to low 100s. B/P 112/50. Chest x-ray was performed today results are yet pending. Objective - Vital Signs Vital signs: Vital Signs Temp 98 F 05/25/17 08:00 Pulse 77 05/25/17 11:27 Resp 17 05/25/17 11:27 BP 112/51 05/25/17 11:27 Pulse Ox 95 05/25/17 11:27 Intake & Output 05/24/17 05/25/17 05/25/17 18:59 06:59 18:59 Intake Total 692.285 683.122 510 Output Total 300 250 Balance 392.285 683.122 260 Weight 104.5 kg 105.2 kg Intake: IV 290 210 50 Heparin Sodium,Porcine/ 240 160 D5w Pmx 25,000 unit In Dextrose/Water 1 500ml. bag @ 20 mls/hr IV .Q24H [facility] Rx#:[id number] cefTRIAXone 1,000 mg In 50 50 50 Sodium Chloride 0.9% 50 ml @ 100 mls/hr IVPB Q12HR [facility] Rx#:[id number] Intake, IV Titration 402.285 473.122 Amount Diltiazem 125 mg In 46.917 Sodium Chloride 0.9% 100 ml @ 5 MG/HR 5 mls/hr IV .Q24H [facility] Rx#:[id number] Heparin Sodium,Porcine/ 195.368 473.122 D5w Pmx 25,000 unit In Dextrose/Water 1 500ml. bag @ 20 mls/hr IV .Q24H [facility] Rx#:[id number] Sodium Chloride 0.9% 1, 160 000 ml @ 100 mls/hr IV . Q10H [facility] Rx#:[id number] Oral 460 Output: Urine 300 250 Other: Voiding Method Toilet Toilet Toilet # Voids 1 2 - Exam PHYSICAL EXAMINATION: HEENT: Head is atraumatic, normocephalic. Pupils equal, round. Neck is supple. There is elevated jugular venous pressure. HEART EXAMINATION: Heart S1 and S2 irregularly irregular systolic murmur is heard. CHEST EXAMINATION: Lungs reveal diminished air entry to bilateral bases ABDOMEN: Soft, obese, nontender. Bowel sounds are heard. No organomegaly noted. EXTREMITIES:[ 2+ peripheral pulses with 1+ evidence of peripheral edema , significant bilateral lower extremity redness. NEUROLOGIC patient is awake, alert and oriented -3. . - Labs CBC & Chem 7: 05/25/17 10:17 05/25/17 10:17 Labs: Abnormal Lab Results - Last 24 Hours (Table) 05/24/17 05/24/17 05/24/17 Range/Units 16:44 16:46 21:01 WBC (3.8-10.6) k/uL RBC (3.80-5.40) m/uL Hgb (11.4-16.0) gm/dL Hct (34.0-46.0) % APTT 78.5 H (22.0-30.0) sec Sodium (137-145) mmol/L Chloride (98-107) mmol/L BUN (7-17) mg/dL Glucose (74-99) mg/dL POC Glucose (mg/dL) 150 H 189 H (75-99) mg/dL 05/25/17 05/25/17 05/25/17 Range/Units 01:50 05:59 10:17 WBC 10.7 H (3.8-10.6) k/uL RBC 3.38 L (3.80-5.40) m/uL Hgb 11.0 L (11.4-16.0) gm/dL Hct 31.4 L (34.0-46.0) % APTT 43.4 H (22.0-30.0) sec Sodium (137-145) mmol/L Chloride (98-107) mmol/L BUN (7-17) mg/dL Glucose (74-99) mg/dL POC Glucose (mg/dL) 136 H (75-99) mg/dL 05/25/17 05/25/17 05/25/17 Range/Units 10:17 10:17 11:40 WBC (3.8-10.6) k/uL RBC (3.80-5.40) m/uL Hgb (11.4-16.0) gm/dL Hct (34.0-46.0) % APTT 71.2 H (22.0-30.0) sec Sodium 132 L (137-145) mmol/L Chloride 93 L (98-107) mmol/L BUN 24 H (7-17) mg/dL Glucose 160 H (74-99) mg/dL POC Glucose (mg/dL) 170 H (75-99) mg/dL Assessment and Plan Plan: Assessment and plan #1 atrial fibrillation with rapid ventricular response, appears to be of new onset for this patient. TSH normal #2 congestive cardiac failure, LV function unknown at this time. #3 hypertension #4 diabetes # 5 obesity #6 UTI, on IV antibiotics Plan Echo cardiogram with Doppler study was performed which revealed normal left ventricular systolic function. We will continue current medications. DNP note has been reviewed, I agree with a documented findings and plan of care. Patient was seen and examined.
--- NOTE | 2017-05-25 15:01 | XR ---
EXAMINATION TYPE: XR chest 1V portable DATE OF EXAM: 05/25/2017 COMPARISON: Prior chest x-ray 05/22/2017 HISTORY: Congestive heart failure TECHNIQUE: Single frontal view of the chest is obtained. FINDINGS: There is no pleural effusion, or pneumothorax seen. The cardiac silhouette size is stable , rotation may accentuate the appearance of the heart size. Patchy basilar density present on the lef t may reflect atelectasis rather than pneumonia. There are overlying cardiac leads. The osseous struc tures are intact. IMPRESSION: Basilar atelectasis or scarring, correlate to exclude pneumonia.
--- NOTE | 2017-05-25 15:05 | PN ---
DATE OF SERVICE: 05/25/2017 This is a 76-year-old woman who was admitted with atrial fibrillation, fast ventricular rate, also had CHF acute exacerbation. Patient was complaining of right shoulder pain, no fever, no cough. On exam, alert and oriented x3. Pulse 112, blood pressure 130/60, respirations 18, temperature is 98 degrees, pulse ox 94% on room air. HEENT: Conjunctivae normal. CARDIOVASCULAR SYSTEM: S1, S2. RESPIRATORY: Breath sounds diminished at the bases. A few scattered rhonchi, no crackles. ABDOMEN: Soft, nontender, no mass palpable. LEGS: Minimal edema, no swelling. NERVOUS SYSTEM: No focal deficits. LABS: WBC is 10.7, sodium 132. ASSESSMENT: 1. Atrial fibrillation with fast ventricular rate, new onset. 2. Congestive heart failure acute exacerbation with acute on chronic diastolic dysfunction. 3. Urinary tract infection. 4. Increased WBC. 5. Diabetes mellitus type 2. 6. History of back pain, degenerative joint disease. 7. Uterine ablation history. RECOMMENDATION: Recommend to continue with the current medication and symptomatic treatment. Continue with the monitoring and symptomatic treatment. Otherwise, continue to monitor. Further recommendations to follow. We will repeat a chest x-ray today and continue to follow. SHIVANI
--- NOTE | 2017-05-25 15:07 | P.PN ---
Progress Note - Text This is an addendum to the progress note dictated earlier today. Patient experienced some nausea after receiving Ultram, we'll discontinue the Ultram and just give the patient Tylenol as needed for pain. DNP note has been reviewed, I agree with a documented findings and plan of care. Patient was seen and examined.
[2017-05-25 16:54] LABS: Glucose,Whole Blood 172 mg/dL (75-99)
[2017-05-25 21:27] LABS: Glucose,Whole Blood 169 mg/dL (75-99)
[2017-05-26 06:03] LABS: Glucose,Whole Blood 141 mg/dL (75-99)
[2017-05-26 06:40] LABS: Basophils # (A) 0.1 k/uL (0-0.2); Basophils % (A) 1 %; CH 31.4; CHCM 33.3; Eosinophils # (A) 0.1 k/uL (0-0.7); Eosinophils % (A) 1 %; HCT 32.7 % (34.0-46.0); HGB 10.8 gm/dL (11.4-16.0); Luc # (Auto) 0.19; Luc % (Auto) 2; Lymphocytes # (A) 2.7 k/uL (1.0-4.8); Lymphocytes % (A) 24 %; MCH 31.3 pg (25.0-35.0); MCV 94.8 fL (80.0-100.0); Mean Platelet Volume 7.5; Monocytes # (A) 0.6 k/uL (0-1.0); Monocytes % (A) 6 %; Neutrophils # (A) 7.6 k/uL (1.3-7.7); Neutrophils % (A) 68 %; RBC 3.45 m/uL (3.80-5.40); WBC 11.2 k/uL (3.8-10.6); WBC (Perox) 11.35
[2017-05-26] MEDS: INSULIN LISPRO (humaLOG) 300 UNIT/3 ML VIAL SQ SCH ×4 (07:03→21:18)
[2017-05-26] MEDS: GLIMEPIRIDE 2 MG TAB PO SCH ×2 (07:04→17:14)
[2017-05-26] MEDS: metFORMIN 500 MG TAB PO SCH ×2 (07:04→17:14)
[2017-05-26 07:05] LABS: Anion Gap 15 mmol/L; Blood Urea Nitrogen 29 mg/dL (7-17); Calcium 9.6 mg/dL (8.4-10.2); Carbon Dioxide 25 mmol/L (22-30); Chloride 92 mmol/L (98-107); Glucose 122 mg/dL (74-99); Non-African American GFR(MDRD) >60 (>60 ml/min/1.73 sqM); Potassium 3.5 mmol/L (3.5-5.1); Sodium 132 mmol/L (137-145)
[2017-05-26] MEDS: APIXABAN 2.5 MG TABLET PO SCH ×2 (08:05→21:19)
[2017-05-26] MEDS: FUROSEMIDE 10 MG/ML 4 ML VIAL IV SCH ×2 (08:06→21:19)
[2017-05-26] MEDS: METOPROLOL TARTRATE 50 MG TAB PO SCH ×2 (08:06→21:19)
[2017-05-26] MEDS: ATORVASTATIN 80 MG TAB PO SCH (08:06)
[2017-05-26] MEDS: HYDROcodone/APAP 5-325MG 1 EACH TAB PO PRN (09:20)
[2017-05-26 11:43] LABS: Glucose,Whole Blood 169 mg/dL (75-99)
[2017-05-26] MEDS: DIGOXIN 250 MCG/ML 2 ML AMP IVP SCH ×2 (11:46→17:19)
--- NOTE | 2017-05-26 14:54 | P.PN ---
Subjective This is a 76 stroke female with history of hypertension, diabetes, obesity, who presents to the hospital with symptoms of burning on urination. She denies any overt shortness of breath, she does have peripheral edema which she states she's been dealing with for quite some time. On presentation here an EKG was performed which revealed atrial fibrillation with rapid ventricular response. According to the patient she has no prior history of atrial fibrillation, she denies any chest discomfort denies palpitations denies shortness of breath. Chest x-ray on admission revealed mild congestive heart failure exacerbation. White blood cell count on admission 10.9, 7.6 this morning. Hemoglobin 11.7. Sodium 133, potassium 4.0, BUN 17, creatinine 0.8. Troponins have been negative 3. TSH 2.1. Cholesterol 164, triglycerides 94, LDL 91, HDL 54. Positive UTI. Patient was initiated on IV heparin as well as IV Cardizem in the emergency room. She continues to be in atrial fibrillation this morning with a heart rate in the 130s. 05/24/2017. Patient seen and examined this morning, overall feeling better today. Heart rate still in the 1 teens to 120s. We will increase the dose of beta ramses to 50 mg twice a day and discontinue the Cardizem drip. We will also discontinue the IV heparin and initiate the patient on Eliquis. Echocardiogram with Doppler study was performed which revealed an ejection fraction of 50-55% 05/25/2017. Patient seen and examined this morning, weight is up 1 kg. She states that she is urinating quite a bit. Creatinine 0.9 today. Potassium 3.8. Heart rate remains in the 80s to low 100s. B/P 112/50. Chest x-ray was performed today results are yet pending. 05/26/2017 Patient seen and examined this morning, complaining of nausea, we discontinued his [place] today. Hemodynamically stable, although the heart rate at times does go up into the 11/29/1939 range. We will start the patient on Lanoxin today. Continue IV diuresis for 24 hours. Objective - Vital Signs Vital signs: Vital Signs Temp 97 F L 05/26/17 08:00 Pulse 130 H 05/26/17 11:44 Resp 19 05/26/17 11:44 BP 126/51 05/26/17 11:44 Pulse Ox 95 05/26/17 11:44 Intake & Output 05/25/17 05/26/17 05/26/17 18:59 06:59 18:59 Intake Total 510 120 50 Output Total 250 400 Balance 260 120 -350 Weight 104.5 kg Intake: IV 50 50 cefTRIAXone 1,000 mg In 50 50 Sodium Chloride 0.9% 50 ml @ 100 mls/hr IVPB Q12HR [facility] Rx#:[id number] Oral 460 120 Output: Urine 250 400 Other: Voiding Method Toilet Toilet Toilet # Voids 2 - Exam PHYSICAL EXAMINATION: HEENT: Head is atraumatic, normocephalic. Pupils equal, round. Neck is supple. There is elevated jugular venous pressure. HEART EXAMINATION: Heart S1 and S2 irregularly irregular systolic murmur is heard. CHEST EXAMINATION: Lungs reveal diminished air entry to bilateral bases ABDOMEN: Soft, obese, nontender. Bowel sounds are heard. No organomegaly noted. EXTREMITIES:[ 2+ peripheral pulses with 1+ evidence of peripheral edema , significant bilateral lower extremity redness. NEUROLOGIC patient is awake, alert and oriented -3. . - Labs CBC & Chem 7: 05/26/17 05:48 05/26/17 05:48 Labs: Abnormal Lab Results - Last 24 Hours (Table) 05/25/17 05/25/17 05/26/17 Range/Units 16:44 21:20 05:42 WBC (3.8-10.6) k/uL RBC (3.80-5.40) m/uL Hgb (11.4-16.0) gm/dL Hct (34.0-46.0) % Sodium (137-145) mmol/L Chloride (98-107) mmol/L BUN (7-17) mg/dL Glucose (74-99) mg/dL POC Glucose (mg/dL) 172 H 169 H 141 H (75-99) mg/dL 05/26/17 05/26/17 05/26/17 Range/Units 05:48 05:48 11:41 WBC 11.2 H (3.8-10.6) k/uL RBC 3.45 L (3.80-5.40) m/uL Hgb 10.8 L (11.4-16.0) gm/dL Hct 32.7 L (34.0-46.0) % Sodium 132 L (137-145) mmol/L Chloride 92 L (98-107) mmol/L BUN 29 H (7-17) mg/dL Glucose 122 H (74-99) mg/dL POC Glucose (mg/dL) 169 H (75-99) mg/dL Microbiology - Last 24 Hours (Table) 05/22/17 16:27 Urine Culture - Final Urine,Clean Catch Acinetobacter lwoffi Assessment and Plan Plan: Assessment and plan #1 atrial fibrillation with rapid ventricular response, appears to be of new onset for this patient. TSH normal #2 congestive cardiac failure, LV function unknown at this time. #3 hypertension #4 diabetes # 5 obesity #6 UTI, on IV antibiotics Plan Echo cardiogram with Doppler study was performed which revealed normal left ventricular systolic function. We will continue current dose of IV Lasix. We' ll give the patient 2 doses of IV Lanoxin and started on oral Lanoxin from tomorrow. DNP note has been reviewed, I agree with a documented findings and plan of care. Patient was seen and examined.
[2017-05-26 16:35] LABS: Glucose,Whole Blood 166 mg/dL (75-99)
[2017-05-26 20:59] LABS: Glucose,Whole Blood 91 mg/dL (75-99)
[2017-05-27] MEDS: ACETAMINOPHEN TAB 500 MG TAB PO PRN (05:11)
[2017-05-27 06:01] LABS: Basophils # (A) 0.1 k/uL (0-0.2); Basophils % (A) 1 %; CH 31.5; CHCM 33.1; Eosinophils # (A) 0.1 k/uL (0-0.7); Eosinophils % (A) 1 %; HCT 33.8 % (34.0-46.0); HDW 2.44; HGB 11.1 gm/dL (11.4-16.0); Luc # (Auto) 0.19; Luc % (Auto) 2; Lymphocytes # (A) 2.2 k/uL (1.0-4.8); Lymphocytes % (A) 24 %; MCH 31.3 pg (25.0-35.0); MCHC 32.9 g/dL (31.0-37.0); MCV 95.3 fL (80.0-100.0); Mean Platelet Volume 7.2; Monocytes # (A) 0.6 k/uL (0-1.0); Monocytes % (A) 7 %; Neutrophils # (A) 5.9 k/uL (1.3-7.7); Neutrophils % (A) 65 %; RBC 3.55 m/uL (3.80-5.40); RDW 14.1 % (11.5-15.5); WBC 9.1 k/uL (3.8-10.6); WBC (Perox) 9.32
[2017-05-27 06:15] LABS: Glucose,Whole Blood 76 mg/dL (75-99)
[2017-05-27] MEDS: INSULIN LISPRO (humaLOG) 300 UNIT/3 ML VIAL SQ SCH ×4 (06:33→20:56)
[2017-05-27 06:38] LABS: Anion Gap 14 mmol/L; Blood Urea Nitrogen 27 mg/dL (7-17); Calcium 9.8 mg/dL (8.4-10.2); Carbon Dioxide 27 mmol/L (22-30); Chloride 90 mmol/L (98-107); Glucose 66 mg/dL (74-99); Non-African American GFR(MDRD) >60 (>60 ml/min/1.73 sqM); Potassium 3.7 mmol/L (3.5-5.1); Sodium 131 mmol/L (137-145)
--- NOTE | 2017-05-27 08:23 | PN ---
DATE OF SERVICE: 05/26/2017 This 76-year-old woman was admitted with atrial fibrillation with a fast ventricular rate. Also had history of CHF. Patient is being closely monitored. Cardiology is following the patient closely. IV medication has been transitioned to p.o. and no fever, no cough. Patient is complaining of back pain. The patient is still tachycardiac also. PAST MEDICAL HISTORY: Reviewed. PHYSICAL EXAM: The patient is alert and oriented x3. Pulse is 130 irregular. Blood pressure is 126/51. Respirations are 19. Temperature is 97 degrees. Pulse ox 94% on room air. HEENT: Conjunctivae normal. NECK: No jugular venous distention. CARDIOVASCULAR: S1 and S2 muffled. Tachycardia. RESPIRATORY: Breath sounds diminished at the bases. ABDOMEN: Soft, nontender. No mass palpable. LEGS: No edema, no swelling. NERVOUS SYSTEM: No focal deficits. LABS: WBC 11.2, hemoglobin 10.8. Sodium 132. ASSESSMENT: 1. Atrial fibrillation with a fast ventricular rate, new onset. 2. Congestive heart failure, acute exacerbation with acute on chronic diagnostic dysfunction. 3. Urinary tract infection. 4. Increased WBC. 5. Diabetes mellitus type 2. 6. History of back pain, degenerative joint disease. 7. Uterine ablation history. RECOMMENDATIONS AND DISCUSSION: This 76-year-old woman presented with multiple complex medical issues. Will monitor the patient closely. Continue the current medications. Continue symptomatic treatment. Otherwise at this time the IV ( ) has been initiated. Closely follow with Cardiology. Increase ambulation. Further recommendations to follow. MTDD
[2017-05-27] MEDS: ATORVASTATIN 80 MG TAB PO SCH (08:32)
[2017-05-27] MEDS: APIXABAN 2.5 MG TABLET PO SCH ×2 (08:32→20:25)
[2017-05-27] MEDS: METOPROLOL TARTRATE 50 MG TAB PO SCH ×2 (08:32→20:25)
[2017-05-27] MEDS: DIGOXIN 250 MCG TAB PO SCH (08:33)
[2017-05-27] MEDS: metFORMIN 500 MG TAB PO SCH ×2 (08:33→17:58)
[2017-05-27] MEDS: GLIMEPIRIDE 2 MG TAB PO SCH ×2 (08:33→17:57)
[2017-05-27] MEDS: FUROSEMIDE 10 MG/ML 4 ML VIAL IV SCH (08:35)
--- NOTE | 2017-05-27 12:04 | P.PN ---
Subjective This is a 76 stroke female with history of hypertension, diabetes, obesity, who presents to the hospital with symptoms of burning on urination. She denies any overt shortness of breath, she does have peripheral edema which she states she's been dealing with for quite some time. On presentation here an EKG was performed which revealed atrial fibrillation with rapid ventricular response. According to the patient she has no prior history of atrial fibrillation, she denies any chest discomfort denies palpitations denies shortness of breath. Chest x-ray on admission revealed mild congestive heart failure exacerbation. White blood cell count on admission 10.9, 7.6 this morning. Hemoglobin 11.7. Sodium 133, potassium 4.0, BUN 17, creatinine 0.8. Troponins have been negative 3. TSH 2.1. Cholesterol 164, triglycerides 94, LDL 91, HDL 54. Positive UTI. Patient was initiated on IV heparin as well as IV Cardizem in the emergency room. Her IV Cardizem has since been discontinued and her beta ramses was increased. She was started on digoxin yesterday for better heart rate control. She has been on Lasix 40 mg IV push every 12 hours and is diuresing well. Objective - Vital Signs Vital signs: Vital Signs Temp 97.1 F L 05/27/17 08:00 Pulse 97 05/27/17 08:00 Resp 18 05/27/17 08:00 BP 139/56 05/27/17 08:00 Pulse Ox 94 L 05/27/17 08:07 Intake & Output 05/26/17 05/27/17 05/27/17 18:59 06:59 18:59 Intake Total 290 50 Output Total 600 Balance -310 50 Weight 104.1 kg Intake: IV 50 50 cefTRIAXone 1,000 mg In 50 50 Sodium Chloride 0.9% 50 ml @ 100 mls/hr IVPB Q12HR [facility] Rx#:[id number] Oral 240 Output: Urine 600 Other: Voiding Method Toilet Toilet # Voids 2 2 - Exam PHYSICAL EXAMINATION: HEENT: Head is atraumatic, normocephalic. Pupils equal, round. Neck is supple. There is no elevated jugular venous pressure. HEART EXAMINATION: Heart sounds irregularly irregular, S1 and S2 with a systolic murmur. CHEST EXAMINATION: Lungs reveal diminished air entry bilaterally. No chest wall tenderness is noted on palpation or with deep breathing. ABDOMEN: Soft, nontender. Bowel sounds are heard. No organomegaly noted. EXTREMITIES: 2+ peripheral pulses with evidence of trace peripheral edema and no calf tenderness noted. NEUROLOGIC patient is awake, alert and oriented x3. . - Labs CBC & Chem 7: 05/27/17 05:43 05/27/17 05:43 Labs: Abnormal Lab Results - Last 24 Hours (Table) 05/26/17 05/27/17 05/27/17 Range/Units 16:33 05:43 05:43 RBC 3.55 L (3.80-5.40) m/uL Hgb 11.1 L (11.4-16.0) gm/dL Hct 33.8 L (34.0-46.0) % Sodium 131 L (137-145) mmol/L Chloride 90 L (98-107) mmol/L BUN 27 H (7-17) mg/dL Glucose 66 L (74-99) mg/dL POC Glucose (mg/dL) 166 H (75-99) mg/dL Assessment and Plan Plan: Assessment and plan #1 atrial fibrillation with rapid ventricular response, likely persistent, appears to be of new onset #2 congestive heart failure, diastolic #3 hypertension #4 diabetes #5 obesity #6 UTI Cardiology's perspective, we will change the patient to by mouth Lasix. Continue Beta blockers and Lanoxin. Check a digoxin level in the future. Further recommendations to follow. [address] note has been reviewed, I agree with a documented findings and plan of care. Patient was seen and examined.
[2017-05-27 16:48] LABS: Glucose,Whole Blood 116 mg/dL (75-99)
[2017-05-27] MEDS: FUROSEMIDE 40 MG TAB PO SCH (17:57)
[2017-05-27 20:50] LABS: Glucose,Whole Blood 134 mg/dL (75-99)
[2017-05-27] MEDS: DOCUSATE 100 MG CAP PO PRN (21:50)
[2017-05-28] MEDS: ACETAMINOPHEN TAB 500 MG TAB PO PRN ×4 (03:32→21:52)
[2017-05-28 05:47] LABS: Glucose,Whole Blood 127 mg/dL (75-99)
[2017-05-28 06:19] LABS: Basophils # (A) 0.1 k/uL (0-0.2); Basophils % (A) 1 %; CH 31.5; CHCM 33.4; Eosinophils # (A) 0.1 k/uL (0-0.7); Eosinophils % (A) 1 %; HCT 35.4 % (34.0-46.0); HDW 2.48; HGB 11.5 gm/dL (11.4-16.0); Luc # (Auto) 0.21; Luc % (Auto) 2; Lymphocytes % (A) 21 %; MCH 30.8 pg (25.0-35.0); MCHC 32.5 g/dL (31.0-37.0); MCV 94.7 fL (80.0-100.0); Mean Platelet Volume 6.8; Monocytes # (A) 0.7 k/uL (0-1.0); Monocytes % (A) 7 %; Neutrophils # (A) 6.4 k/uL (1.3-7.7); Neutrophils % (A) 68 %; RBC 3.74 m/uL (3.80-5.40); RDW 13.9 % (11.5-15.5); WBC 9.4 k/uL (3.8-10.6); WBC (Perox) 9.82
[2017-05-28 06:35] LABS: Anion Gap 14 mmol/L; Blood Urea Nitrogen 30 mg/dL (7-17); Calcium 9.7 mg/dL (8.4-10.2); Carbon Dioxide 27 mmol/L (22-30); Chloride 92 mmol/L (98-107); Glucose 104 mg/dL (74-99); Non-African American GFR(MDRD) >60 (>60 ml/min/1.73 sqM); Potassium 3.6 mmol/L (3.5-5.1); Sodium 133 mmol/L (137-145)
[2017-05-28] MEDS: INSULIN LISPRO (humaLOG) 300 UNIT/3 ML VIAL SQ SCH ×4 (07:14→21:52)
[2017-05-28] MEDS: metFORMIN 500 MG TAB PO SCH ×2 (07:21→17:40)
[2017-05-28] MEDS: GLIMEPIRIDE 2 MG TAB PO SCH ×2 (07:21→17:40)
--- NOTE | 2017-05-28 08:06 | PN ---
DATE OF SERVICE: 05/27/2017 This 76-year-old woman was admitted with atrial fibrillation with fast ventricular rate, is being closely monitored. The patient also has ( ). The patient also has UTI. The patient also has longstanding history of back pain. No chest pain, no palpation. No fever. On exam, alert and oriented x3. Pulse 97, blood pressure 139/56, respirations 18, temperature 97.0, pulse ox 97% on room air. HEENT: Conjunctivae normal. Oral mucosa moist. NECK: No JVD. CARDIOVASCULAR: S1/S2 irregular. LUNGS: Diminished breath sounds at the bases. No rhonchi, no crackles. ABDOMEN: Soft. NERVOUS SYSTEM: No focal deficits. LABS: WBC 9.0, hemoglobin 11.1. ASSESSMENT: 1. Atrial fibrillation with fast ventricular rate, present on admission, new onset. 2. Congestive heart failure, acute exacerbation with acute on chronic diastolic dysfunction. 3. Urinary tract infection. 4. History of back pain. 5. Degenerative joint disease. 6. Increased WBC. 7. Diabetes mellitus type 2. RECOMMENDATIONS AND DISCUSSION: Recommend to continue current medication, continue symptomatic treatment. Otherwise, will monitor the patient closely. Adjust medications. Further recommendations to follow. MTDD
[2017-05-28] MEDS: ATORVASTATIN 80 MG TAB PO SCH (09:39)
[2017-05-28] MEDS: APIXABAN 2.5 MG TABLET PO SCH ×2 (09:39→20:22)
[2017-05-28] MEDS: FUROSEMIDE 40 MG TAB PO SCH ×2 (09:39→16:05)
[2017-05-28] MEDS: DIGOXIN 250 MCG TAB PO SCH (09:39)
[2017-05-28] MEDS: METOPROLOL TARTRATE 50 MG TAB PO SCH ×2 (09:39→20:22)
[2017-05-28 12:08] LABS: Glucose,Whole Blood 131 mg/dL (75-99)
[2017-05-28] MEDS: DOCUSATE 100 MG CAP PO PRN (12:28)
[2017-05-28 16:46] LABS: Glucose,Whole Blood 149 mg/dL (75-99)
[2017-05-28 20:50] LABS: Glucose,Whole Blood 255 mg/dL (75-99)
[2017-05-29] MEDS: ACETAMINOPHEN TAB 500 MG TAB PO PRN (04:39)
[2017-05-29 04:49] VITALS: TEMP 97.4
[2017-05-29 05:56] LABS: Glucose,Whole Blood 78 mg/dL (75-99)
[2017-05-29 06:24] LABS: Glucose,Whole Blood 111 mg/dL (75-99)
[2017-05-29] MEDS: INSULIN LISPRO (humaLOG) 300 UNIT/3 ML VIAL SQ SCH ×2 (07:02→12:23)
[2017-05-29] MEDS: metFORMIN 500 MG TAB PO SCH (07:03)
[2017-05-29] MEDS: GLIMEPIRIDE 2 MG TAB PO SCH (07:04)
[2017-05-29] MEDS: FUROSEMIDE 40 MG TAB PO SCH (08:12)
[2017-05-29] MEDS: METOPROLOL TARTRATE 50 MG TAB PO SCH (08:12)
[2017-05-29] MEDS: APIXABAN 2.5 MG TABLET PO SCH (08:12)
[2017-05-29] MEDS: DIGOXIN 250 MCG TAB PO SCH (08:12)
[2017-05-29] MEDS: ATORVASTATIN 80 MG TAB PO SCH (08:18)
[2017-05-29 08:24] VITALS: BP 121/93; PULSE 115; RESP 16
--- NOTE | 2017-05-29 08:36 | PN ---
DATE OF SERVICE: 05/28/17 This 76 -year-old woman was admitted with atrial fibrillation, CHF, is improving significantly. The patient also had UTI also. No fever. No cough. On exam, alert and oriented times three. Pulse 104. Blood pressure 130/69. Respiratory rate 18. Temperature 97 degrees. Pulse ox 98% on room air. HEENT: Conjunctivae normal. NECK: No jugular venous distention. CARDIOVASCULAR: S1, S2 muffled. RESPIRATORY: Breath sounds diminished at the bases. Scattered rhonchi. No crackles. Abdomen soft, nontender. LEGS: No edema. No swelling. NERVOUS SYSTEM: No focal deficits LABS: CBC within normal limits. Sodium 133. ASSESSMENT: 1. Atrial fibrillation with fast ventricular rate present on admission, new onset. 2. Congestive heart failure, acute exacerbation with acute on chronic diastolic dysfunction. 3. Urinary tract infection. 4. History of back pain. 5. History of degenerative joint disease. 6. History of increased WBC. 7. Diabetes Type 2. RECOMMENDATIONS AND DISCUSSION: Recommend to continue current medications. Continue monitoring and symptomatic treatment. Otherwise, at this time, we will continue the Digoxin. Continue to follow closely with cardiology. Increase ambulation. Guarded prognosis. Further recommendations to follow. MTDD
[2017-05-29 11:45] LABS: Glucose,Whole Blood 120 mg/dL (75-99)
--- NOTE | 2017-05-29 13:47 | P.PN ---
Subjective This is a 76 stroke female with history of hypertension, diabetes, obesity, who presents to the hospital with symptoms of burning on urination. She denies any overt shortness of breath, she does have peripheral edema which she states she's been dealing with for quite some time. On presentation here an EKG was performed which revealed atrial fibrillation with rapid ventricular response. According to the patient she has no prior history of atrial fibrillation, she denies any chest discomfort denies palpitations denies shortness of breath. Chest x-ray on admission revealed mild congestive heart failure exacerbation. White blood cell count on admission 10.9, 7.6 this morning. Hemoglobin 11.7. Sodium 133, potassium 4.0, BUN 17, creatinine 0.8. Troponins have been negative 3. TSH 2.1. Cholesterol 164, triglycerides 94, LDL 91, HDL 54. Positive UTI. Patient was initiated on IV heparin as well as IV Cardizem in the emergency room. She continues to be in atrial fibrillation this morning with a heart rate in the 130s. 05/24/2017. Patient seen and examined this morning, overall feeling better today. Heart rate still in the 1 teens to 120s. We will increase the dose of beta ramses to 50 mg twice a day and discontinue the Cardizem drip. We will also discontinue the IV heparin and initiate the patient on Eliquis. Echocardiogram with Doppler study was performed which revealed an ejection fraction of 50-55% 05/25/2017. Patient seen and examined this morning, weight is up 1 kg. She states that she is urinating quite a bit. Creatinine 0.9 today. Potassium 3.8. Heart rate remains in the 80s to low 100s. B/P 112/50. Chest x-ray was performed today results are yet pending. 05/26/2017 Patient seen and examined this morning, complaining of nausea, we discontinued his [place] today. Hemodynamically stable, although the heart rate at times does go up into the 11/29/1939 range. We will start the patient on Lanoxin today. Continue IV diuresis for 24 hours. 05/29/2017. Patient currently on by mouth Lasix, overall feeling much better today. Hemodynamically stable. Heart rate low 100s, prior to her receiving her medications her heart rate does go into the 1 teens but comes down nicely after receiving her medications. Objective - Vital Signs Vital signs: Vital Signs Temp 97.4 F L 05/29/17 08:00 Pulse 115 H 05/29/17 12:00 Resp 16 05/29/17 08:00 BP 121/93 05/29/17 08:00 Pulse Ox 94 L 05/29/17 08:00 Intake & Output 05/28/17 05/29/17 05/29/17 18:59 06:59 18:59 Intake Total 237 Output Total 300 Balance -63 Weight 103.1 kg 102.1 kg Intake: Oral 237 Output: Urine 300 Other: Voiding Method Toilet Toilet Toilet # Voids 1 - Exam PHYSICAL EXAMINATION: HEENT: Head is atraumatic, normocephalic. Pupils equal, round. Neck is supple. There is elevated jugular venous pressure. HEART EXAMINATION: Heart S1 and S2 irregularly irregular systolic murmur is heard. CHEST EXAMINATION: Lungs improvement in air entry to bilateral bases ABDOMEN: Soft, obese, nontender. Bowel sounds are heard. No organomegaly noted. EXTREMITIES:[ 2+ peripheral pulses with trace evidence of peripheral edema , significant bilateral lower extremity redness. NEUROLOGIC patient is awake, alert and oriented -3. . - Labs CBC & Chem 7: 05/28/17 05:49 05/28/17 05:49 Labs: Abnormal Lab Results - Last 24 Hours (Table) 05/28/17 05/28/17 05/29/17 Range/Units 16:42 20:48 06:22 POC Glucose (mg/dL) 149 H 255 H 111 H (75-99) mg/dL 05/29/17 Range/Units 11:44 POC Glucose (mg/dL) 120 H (75-99) mg/dL Assessment and Plan Plan: Assessment and plan #1 atrial fibrillation with rapid ventricular response, appears to be of new onset for this patient. TSH normal #2 congestive cardiac failure, LV function unknown at this time. #3 hypertension #4 diabetes # 5 obesity #6 UTI, on IV antibiotics Plan Echo cardiogram with Doppler study was performed which revealed normal left ventricular systolic function. Cardiology's perspective, patient may be able to be discharged once cleared by the primary. We will make her a follow-up appointment in the office post discharge. DNP note has been reviewed, I agree with a documented findings and plan of care. Patient was seen and examined.
--- NOTE | 2017-06-01 12:19 | DS ---
FINAL DIAGNOSES: 1. Atrial fibrillation with fast ventricular rate, present on admission, new onset. 2. Congestive heart failure, acute exacerbation with acute on chronic diastolic dysfunction. 3. Urinary tract infection. 4. History of back pain and degenerative joint disease. 5. Increased WBC. 6. Diabetes mellitus, Type 2. DISCHARGE DISPOSITION: The patient is being discharged in stable condition with guarded prognosis. HISTORY OF PRESENT ILLNESS: This 76-year-old woman with past medical history of multiple medical problems, admitted to the hospital with atrial fibrillation , CHF, and multiple medical problems. The patient treated symptomatically and improved significantly. On exam, vital signs are stable. Cardiovascular: S1, S2 normal. Abdomen soft. Nontender. Nervous system: No focal deficits. DISCHARGE ADVICE AND MEDICATIONS: 1. Diet is cardiac. 2. Activity limited until follow-up. 3. Follow-up with primary care physician in two to three days. 4. Follow-up with cardiology as recommended. Medications are: 1. Tylenol 1000 mg q6h prn. 2. Eliquis 2.5 mg b.i.d. prn. 3. Lipitor 80 mg po daily. 4. Ceftin 500 mg b.i.d. 5. Lanoxin 0.25 mg daily. 6. Colace 100 mg po daily. 7. Lasix 40 mg po b.i.d. 8. Amaryl 2 mg b.i.d. 9. Metformin 250 mg po b.i.d. 10. Lopressor 50 mg po b.i.d. MTDD
== END 2017-05-29 16:02 | disposition home or self-care (01) | DRG 308 ==
LOC: EC 15:42 → 6SEL 17:15
PROVIDERS: ADMIT Hospitalist; ATTEND Hospitalist
DX: I48.91 Unspecified atrial fibrillation (principal); I50.33 Acute on chronic diastolic (congestive) heart failure; N39.0 Urinary tract infection, site not specified; E11.9 Type 2 diabetes mellitus without complications; I11.0 Hypertensive heart disease with heart failure; M54.9 Dorsalgia, unspecified; E66.9 Obesity, unspecified; M19.91 Primary osteoarthritis, unspecified site; Z79.84 Long term (current) use of oral hypoglycemic drugs; Z79.899 Other long term (current) drug therapy; Z88.6 Allergy status to analgesic agent
CPT/HCPCS: 36415; 71010; 71020; 80048; 80053; 80061; 80162; 81001; 82550; 82553; 83036; 83735; 83880; 84100; 84439; 84443; 84484; 85025; 85610; 85730; 87077; 87086; 87186; 93005; 93306; 94760; 96365; 96368; 96375; 96376; 99291

== ENCOUNTER 2017-06-04 17:49 | Emergency (ER) | payer MEDICARE, BC ==
--- NOTE | 2017-06-04 18:27 | ED ---
General Adult HPI - General Chief complaint: Recheck/Abnormal Lab/Rx Stated complaint: diarrhea Time Seen by Provider: 06/04/17 18:13 Source: patient Mode of arrival: wheelchair Limitations: no limitations - History of Present Illness Initial comments: 76 year-old female patient presents to emergency department today for complaints of bowel movements, dysuria, low back pain, and body aches. Patient states she was discharged on 05/29/2017 after being admitted for atrial fibrillation and urinary tract infection. Patient states that she was put on new her medications including Lasix, and since being on his medications she has not felt well. Patient states that she has had dry mouth, her body aches, and she has been having frequent bowel movements. Patient states that her bowel movements are solid and performed, but she is going more frequently than usual. Patient states that she is also having some rectal pain, low back pain, and feels like she has to have a bowel movement every time she sits down. Patient says she has also been lightheaded. Patient denies any headaches, chest pain, shortness of breath, nausea, vomiting, abdominal pain, constipation, dark stool , bloody stool, black stool or hematuria. - Related Data Home Medications Medication Instructions Recorded Confirmed Acetaminophen [Tylenol] 1,000 mg PO QID PRN 05/22/17 06/04/17 Previous Rx's Medication Instructions Recorded Apixaban [Eliquis] 2.5 mg PO BID tab 05/29/17 Atorvastatin [Lipitor] 80 mg PO DAILY #30 tab 05/29/17 Digoxin [Lanoxin] 250 mcg PO Q24H #30 tab 05/29/17 Docusate [Colace] 100 mg PO DAILY PRN #30 cap 05/29/17 Furosemide [Lasix] 40 mg PO BID@0900,1600 #80 tab 05/29/17 Metoprolol Tartrate [Lopressor] 50 mg PO BID #60 tab 05/29/17 Glimepiride [Amaryl] 2 mg PO BID #60 05/30/17 metFORMIN HCL [Glucophage] 250 mg PO BID #30 05/30/17 traMADol HCl [Ultram] 50 mg PO Q6H PRN #20 tab 06/04/17 Allergies Allergy/AdvReac Type Severity Reaction Status Date / Time aspirin AdvReac Nausea Verified 06/04/17 18:42 Review of Systems ROS Statement: Those systems with pertinent positive or pertinent negative responses have been documented in the HPI. ROS Other: All systems not noted in ROS Statement are negative. Past Medical History Past Medical History: Diabetes Mellitus Additional Past Medical History / Comment(s): Back pain History of Any Multi-Drug Resistant Organisms: None Reported Past Surgical History: Uterine Ablation Past Anesthesia/Blood Transfusion Reactions: No Reported Reaction Past Psychological History: No Psychological Hx Reported Smoking Status: Never smoker Past Alcohol Use History: None Reported Past Drug Use History: None Reported - Past Family History Mother Family Medical History: Unable to Obtain Father Family Medical History: Unable to Obtain General Exam Limitations: no limitations General appearance: alert, in no apparent distress Head exam: Present: atraumatic, normocephalic, normal inspection Eye exam: Present: normal appearance, PERRL, EOMI. Absent: scleral icterus, conjunctival injection, periorbital swelling ENT exam: Present: normal exam, mucous membranes moist Neck exam: Present: normal inspection. Absent: tenderness, meningismus, lymphadenopathy Respiratory exam: Present: normal lung sounds bilaterally. Absent: respiratory distress, wheezes, rales, rhonchi, stridor Cardiovascular Exam: Present: regular rate, normal rhythm, normal heart sounds. Absent: systolic murmur, diastolic murmur, rubs, gallop, clicks GI/Abdominal exam: Present: soft, normal bowel sounds. Absent: distended, tenderness, guarding, rebound, rigid Extremities exam: Present: normal inspection, full ROM, normal capillary refill. Absent: tenderness, pedal edema, joint swelling, calf tenderness Back exam: Present: normal inspection. Absent: tenderness, CVA tenderness (R), CVA tenderness (L) Neurological exam: Present: alert, oriented X3, CN II-XII intact Psychiatric exam: Present: normal affect, normal mood Skin exam: Present: warm, dry, intact, normal color. Absent: rash Course Vital Signs 06/04/17 18:08 Temperature 98.4 F Pulse Rate 94 Respiratory 20 Rate Blood Pressure 145/64 O2 Sat by Pulse 98 Oximetry EKG Findings - EKG Comments: EKG Findings:: EKG obtained in 1926 reveals atrial fibrillation with a ventricular rate of 92, QR/80, QT 320, QTC 395. Medical Decision Making - Medical Decision Making 76 year old female patient presented to the emergency room today for complaints of general malaise, general bodyaches, back pain and frequent bowel movements. Patient states that she has had a low back pain and frequent bowel movements for the last year and a half when she started her diabetes medication. Patient' s main concern is that her Lasix may be dehydrating her patient was recently started on this medication and discharge in the hospital on 05/29/2017. Lab work was unremarkable. A KUB x-ray shows overall nonobstructive bowel gas pattern. Urinalysis was negative for any acute infection. Patient will be discharged home with instructions to cut Lasix dose in half. Patient also instructed to resume her normal dose of Lasix should she develop any shortness of breath or extremity swelling. Discussed with patient importance of regular follow-up visits with her primary care physician for management of chronic pain and chronic conditions. Patient states that she has difficulty getting in to see her doctor. Did discuss with patient the need to find a primary care doctor that will be able to manage her. Patient instructed to return for any new, worsening, or concerning symptoms. Patient verbalizes understanding and agrees with this plan. - Lab Data Result diagrams: 06/04/17 19:18 06/04/17 19:18 Lab Results 06/04/17 06/04/17 06/04/17 Range/Units 19:18 19:18 19:30 WBC 9.3 (3.8-10.6) k/uL RBC 4.00 (3.80-5.40) m/uL Hgb 12.0 (11.4-16.0) gm/dL Hct 37.8 (34.0-46.0) % MCV 94.6 (80.0-100.0) fL MCH 30.0 (25.0-35.0) pg MCHC 31.8 (31.0-37.0) g/dL RDW 14.1 (11.5-15.5) % Plt Count 388 (150-450) k/uL Neutrophils % 66 % Lymphocytes % 26 % Monocytes % 5 % Eosinophils % 1 % Basophils % 1 % Neutrophils # 6.2 (1.3-7.7) k/uL Lymphocytes # 2.4 (1.0-4.8) k/uL Monocytes # 0.5 (0-1.0) k/uL Eosinophils # 0.1 (0-0.7) k/uL Basophils # 0.1 (0-0.2) k/uL Sodium 136 L (137-145) mmol/L Potassium 4.6 (3.5-5.1) mmol/L Chloride 95 L (98-107) mmol/L Carbon Dioxide 30 (22-30) mmol/L Anion Gap 11 mmol/L BUN 23 H (7-17) mg/dL Creatinine 0.82 (0.52-1.04) mg/dL Est GFR (MDRD) Af Amer >60 (>60 ml/min/1.73 sqM) Est GFR (MDRD) Non-Af >60 (>60 ml/min/1.73 sqM) Glucose 165 H (74-99) mg/dL Calcium 9.7 (8.4-10.2) mg/dL Magnesium 1.7 (1.6-2.3) mg/dL Total Bilirubin 0.5 (0.2-1.3) mg/dL AST 25 (14-36) U/L ALT 27 (9-52) U/L Alkaline Phosphatase 87 (38-126) U/L Total Protein 6.8 (6.3-8.2) g/dL Albumin 3.9 (3.5-5.0) g/dL Amylase 66 (30-110) U/L Lipase 217 (23-300) U/L Urine Color Colorless Urine Appearance Clear (Clear) Urine pH 6.0 (5.0-8.0) Ur Specific [place] 1.004 (1.001-1.035) Urine Protein Negative (Negative) Urine Glucose (UA) Negative (Negative) Urine Ketones Negative (Negative) Urine Blood Negative (Negative) Urine Nitrite Negative (Negative) Urine Bilirubin Negative (Negative) Urine Urobilinogen <2.0 (<2.0) mg/dL Ur Leukocyte Esterase Negative (Negative) - Radiology Data Radiology results: report reviewed, image reviewed Three-view x-ray of the abdomen shows no sign of intestinal structure pneumoperitoneum. Fecal pattern is normal. There are calcifications in the pelvis probably from a calcified fibroid. There are no pathologic calcifications over the kidneys. There is no sign of a mass. Impression by Dr. Lovett reveals a nonacute abdomen. Disposition Clinical Impression: Back pain, Body aches Disposition: HOME SELF-CARE Condition: Good Instructions: Furosemide (By mouth), Acute Low Back Pain (ED) Additional Instructions: Follow-up with primary care physician as soon as possible. Cut dose of Lasix in half until follow-up with primary care physician or dozer operator. If he develops shortness of breath or extremity swelling return to usual dose of Lasix. Return immediately for any new, worsening, or concerning symptoms. Prescriptions: traMADol HCl [Ultram] 50 mg PO Q6H PRN #20 tab PRN Reason: Pain Referrals: Stanislaw Dewitt DO [STAFF PHYSICIAN] - 1-2 days Cande Thompson MD [STAFF PHYSICIAN] - 1-2 days Time of Disposition: 20:37
[2017-06-04 19:31] LABS: Basophils # (A) 0.1 k/uL (0-0.2); Basophils % (A) 1 %; CH 31.4; CHCM 33.3; Eosinophils # (A) 0.1 k/uL (0-0.7); Eosinophils % (A) 1 %; HCT 37.8 % (34.0-46.0); HDW 2.84; Luc # (Auto) 0.17; Luc % (Auto) 2; Lymphocytes # (A) 2.4 k/uL (1.0-4.8); Lymphocytes % (A) 26 %; MCHC 31.8 g/dL (31.0-37.0); MCV 94.6 fL (80.0-100.0); Monocytes # (A) 0.5 k/uL (0-1.0); Monocytes % (A) 5 %; Neutrophils # (A) 6.2 k/uL (1.3-7.7); Neutrophils % (A) 66 %; RDW 14.1 % (11.5-15.5); WBC 9.3 k/uL (3.8-10.6); WBC (Perox) 9.38
--- NOTE | 2017-06-04 19:37 | XR ---
EXAMINATION TYPE: XR KUB DATE OF EXAM: 06/04/2017 COMPARISON: NONE HISTORY: Back pain TECHNIQUE: 3 views FINDINGS: There is no sign of intestinal obstruction or pneumoperitoneum. Fecal pattern is normal. Th ere are calcifications in the pelvis probably from calcified fibroid. There are no pathologic calcifi cations over the kidneys. There is no sign of a mass. IMPRESSION: Nonacute abdomen.
[2017-06-04 19:41] LABS: ALT 27 U/L (9-52); AST 25 U/L (14-36); Alkaline Phosphatase 87 U/L (38-126); Amylase 66 U/L (30-110); Anion Gap 11 mmol/L; Blood Urea Nitrogen 23 mg/dL (7-17); Calcium 9.7 mg/dL (8.4-10.2); Carbon Dioxide 30 mmol/L (22-30); Chloride 95 mmol/L (98-107); Glucose 165 mg/dL (74-99); Magnesium 1.7 mg/dL (1.6-2.3); Non-African American GFR(MDRD) >60 (>60 ml/min/1.73 sqM); Sodium 136 mmol/L (137-145); Total Bilirubin 0.5 mg/dL (0.2-1.3); Total Protein 6.8 g/dL (6.3-8.2)
[2017-06-04 19:50] LABS: Potassium 4.6 mmol/L (3.5-5.1)
[2017-06-04] MEDS ORDERED: MORPHINE SULFATE 4 MG/ML SYRINGE IVP STA (19:53)
[2017-06-04 20:01] LABS: Appearance,Urine Clear (Clear); Bilirubin,Urine Negative (Negative); Glucose,Urine (UA) Negative (Negative); Ketones,Urine Negative (Negative); Leukocyte Esterase,Urine Negative (Negative); Nitrite,Urine Negative (Negative); Protein,Urine Negative (Negative); Specific Gravity,Urine 1.004 (1.001-1.035); UA Billing (MACRO vs. MICRO) CHEM; Urobilinogen,Urine <2.0 mg/dL (<2.0)
[2017-06-04] MEDS ORDERED: traMADol 50 MG STARTER PACK 3 TAB BTL PO STA (20:50)
[2017-06-04 21:04] VITALS: BP 163/70; PULSE 84; RESP 18; TEMP 97.9
== END 2017-06-04 21:02 | disposition home or self-care (01) ==
LOC: EC 17:49
DX: M79.1 Myalgia (principal); M54.5 Low back pain; R30.0 Dysuria; R42 Dizziness and giddiness; K62.89 Other specified diseases of anus and rectum; Z88.6 Allergy status to analgesic agent
CPT/HCPCS: 36415; 93005; 80053; 82150; 83690; 83735; 85025; 81003; 74000; 99284; 96374; J2270

== ENCOUNTER 2017-09-09 11:09 | Emergency (ER) | payer MEDICARE, BC ==
[2017-09-09 12:25] LABS: Appearance,Urine Cloudy (Clear); Bacteria,Urine Rare /hpf; Bilirubin,Urine Negative (Negative); Glucose,Urine (UA) Negative (Negative); Ketones,Urine Negative (Negative); Leukocyte Esterase,Urine Negative (Negative); Mucus,Urine Rare /hpf; Nitrite,Urine Negative (Negative); PH, Urine 5.5 (5.0-8.0); Particle Count 2223; Protein,Urine Trace (Negative); RBC,Urine 1 /hpf (0-5); Specific Gravity,Urine 1.018 (1.001-1.035); Squamous Epithelial Cell,Urine 6 /hpf (0-4); UA Billing (MACRO vs. MICRO) MICRO; Urobilinogen,Urine <2.0 mg/dL (<2.0); WBC,Urine 2 /hpf (0-5)
[2017-09-09] MEDS ORDERED: HYDROcodone/APAP 5-325MG 1 EACH TAB PO STA (12:25)
--- NOTE | 2017-09-09 12:34 | ED ---
General Adult HPI - General Chief complaint: Urogenital Stated complaint: RECTAL PAIN Time Seen by Provider: 09/09/17 11:27 Source: patient, RN notes reviewed, old records reviewed Mode of arrival: wheelchair Limitations: no limitations - History of Present Illness Initial comments: Patient is a 77-year-old female who presents emergency room today with chief complaint of some rectal pain and pressure. She states is been ongoing for the last 6 months following up the family doctor also a surgeon for colonoscopy. She states she received a letter in the mail just 2 days ago about a colonoscopy with Dr. GARCIA. She states she was not told anything about this. She was unsure if this is the actual colonoscopy or not. 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 She states that she is still been expressing his pain. She denies any new symptoms today. She states she feels like there is some swelling at times and around her rectum. Along with some burning sensation but also feels like it goes up inside. She states this is same symptoms that she's had for the last 6 months. Patient denies anything new. She states that she has been experiencing the same symptoms for the last 6 months. She denies any liquids associated symptoms. Patient denies any recent fever, chills, shortness of breath, chest pain, back pain, abdominal pain, nausea or vomiting, numbness or tingling, dysuria or hematuria, constipation or diarrhea, headaches or visual changes, or any other complaints. - Related Data Home Medications Medication Instructions Recorded Confirmed Acetaminophen [Tylenol] 1,000 mg PO QID PRN 05/22/17 06/04/17 Previous Rx's Medication Instructions Recorded Apixaban [Eliquis] 2.5 mg PO BID tab 05/29/17 Digoxin [Lanoxin] 250 mcg PO Q24H #30 tab 05/29/17 Docusate [Colace] 100 mg PO DAILY PRN #30 cap 05/29/17 Metoprolol Tartrate [Lopressor] 50 mg PO BID #60 tab 05/29/17 Glimepiride [Amaryl] 2 mg PO BID #60 05/30/17 traMADol HCl [Ultram] 50 mg PO Q6H PRN #20 tab 06/04/17 Hydrocodone/Acetaminophen [[place] 1 each PO Q6HR PRN #8 tab 09/09/17 5-325] Allergies Allergy/AdvReac Type Severity Reaction Status Date / Time aspirin AdvReac Nausea Verified 09/09/17 12:24 Review of Systems ROS Statement: Those systems with pertinent positive or pertinent negative responses have been documented in the HPI. ROS Other: All systems not noted in ROS Statement are negative. Past Medical History Past Medical History: Diabetes Mellitus, Hypertension Additional Past Medical History / Comment(s): DDD History of Any Multi-Drug Resistant Organisms: None Reported Past Surgical History: Uterine Ablation Past Anesthesia/Blood Transfusion Reactions: No Reported Reaction Past Psychological History: No Psychological Hx Reported Smoking Status: Never smoker Past Alcohol Use History: None Reported Past Drug Use History: None Reported - Past Family History Mother Family Medical History: Unable to Obtain Father Family Medical History: Unable to Obtain General Exam - General Exam Comments Initial Comments: General: The patient is awake and alert, in no distress, and does not appear acutely ill. Eye: Pupils are equal, round and reactive to light, extra-ocular movements are intact. No nystagmus. There is normal conjunctiva bilaterally. No signs of icterus. Ears, nose, mouth and throat: There are moist mucous membranes and no oral lesions. Neck: The neck is supple, there is no tenderness or JVD. Cardiovascular: There is a regular rate and rhythm. No murmur, rub or gallop is appreciated. Respiratory: Lungs are clear to auscultation, respirations are non-labored, breath sounds are equal. No wheezes, stridor, rales, or rhonchi. Gastrointestinal: Soft, non-distended, non-tender abdomen without masses or organomegaly noted. There is no rebound or guarding present. No CVA tenderness. Bowel sounds are unremarkable. Musculoskeletal: Normal ROM, no tenderness. Strength 5/5. Sensation intact. Pulses equal bilaterally 2+. Neurological: A&O x 3. CN II-XII intact, There are no obvious motor or sensory deficits. Coordination appears grossly intact. Speech is normal. Skin: Skin is warm and dry and no rashes or lesions are noted. Psychiatric: Cooperative, appropriate mood & affect, normal judgment. : CAR STORERBERTA Martinez present for exam. Patient has normal rectal tone. Normal rectal exam. There is no sign of inflammation or any swelling. Limitations: no limitations Course Vital Signs 09/09/17 11:14 Temperature 98.7 F Pulse Rate 100 Respiratory 18 Rate Blood Pressure 135/70 O2 Sat by Pulse 99 Oximetry Medical Decision Making - Medical Decision Making Long conversation have a patient and her that bedside about following up with her scheduled appointment with Dr. Garcia Monday at 2:45 PM. Advised patient that we could try different wipes for the pain. She is agreeable to this she says she's tried anything [id number] has not helped. Patient states she cannot take this pain anymore pierced currently on Ultram. PATIENT had about pain medication and the possibility of a causing constipation and perhaps making the situation worse. Patient states she needs something for pain. She will be given a short prescription of [place] to get through the weekend but is advised to follow-up Dr. Garcia Monday and also her family doctor. Advised to return here to the emergency room if any symptoms increase worsen or for any other concerns. - Lab Data Lab Results 09/09/17 Range/Units 11:30 Urine Color Yellow Urine Appearance Cloudy H (Clear) Urine pH 5.5 (5.0-8.0) Ur Specific [place] 1.018 (1.001-1.035) Urine Protein Trace H (Negative) Urine Glucose (UA) Negative (Negative) Urine Ketones Negative (Negative) Urine Blood Negative (Negative) Urine Nitrite Negative (Negative) Urine Bilirubin Negative (Negative) Urine Urobilinogen <2.0 (<2.0) mg/dL Ur Leukocyte Esterase Negative (Negative) Urine RBC 1 (0-5) /hpf Urine WBC 2 (0-5) /hpf Ur Squamous Epith Cells 6 H (0-4) /hpf Urine Bacteria Rare H (None) /hpf Urine Mucus Rare H (None) /hpf Disposition Clinical Impression: Rectal pain Disposition: HOME SELF-CARE Condition: Good Instructions: Rectal Pain (ED) Additional Instructions: Please follow-up with your scheduled appointment at 2:[address] Garcia Monday. Please call the office in the morning to confirm this appointment. Please call Dr. Dewitt as well to follow up for further pain medication for the symptoms. Please return to emergency room for any other concerns. Prescriptions: Hydrocodone/Acetaminophen [[place] 5-325] 1 each PO Q6HR PRN #8 tab PRN Reason: Pain Referrals: Stanislaw Dewitt DO [Primary Care Provider] - 1-2 days Gómez Garcia MD [STAFF PHYSICIAN] - 1-2 days Time of Disposition: 12:32
[2017-09-09 13:20] VITALS: BP 167/72; PULSE 96; RESP 17; TEMP 97.9
== END 2017-09-09 13:22 | disposition home or self-care (01) ==
LOC: EC 11:09
DX: K62.89 Other specified diseases of anus and rectum (principal); Z88.6 Allergy status to analgesic agent
CPT/HCPCS: 81001; 87086; 99284

== ENCOUNTER → 2017-09-26 | Day surgery (SDC) | payer MEDICARE, BC ==
[2017-09-25 08:56] VITALS: BMI 42.2
[~2017-09-26] MED LIST: LACTATED RINGERS 1,000 ML IV SCH; LIDOCAINE 1% INJ 10MG/ML (20 ML MDV) ONE; PROPOFOL 10 MG/ML 20 ML VIAL IV ONE
[2017-09-26 12:43] VITALS: TEMP 98.2
[2017-09-26 13:08] LABS: Glucose,Whole Blood 168 mg/dL (75-99)
--- NOTE | 2017-09-26 13:39 | P.OP ---
Date of Procedure: 09/26/17 Preoperative Diagnosis: Screening. Irregular stools. Postoperative Diagnosis: Mild to moderate diverticulosis. Mild internal hemorrhoids. Procedure(s) Performed: Colonoscopy. Anesthesia: MAC Surgeon: Gómez Garcia Estimated Blood Loss (ml): 0 Pathology: none sent Condition: stable Disposition: same day Indications for Procedure: Screening. Range in the bowel habits with irregular stools. Rectal discomfort. Patient last had the sigmoidoscopy about 30 years ago. No subsequent endoscopic exam. Comes in for screening. Mostly a burning sensation in the rectal and vaginal area. Operative Findings: Mild to moderate diverticulosis mostly in the sigmoid area uncomplicated. No polyps neoplasms or any other mucosal abnormalities were found. There were mild internal hemorrhoids. Description of Procedure: With the patient in the left lateral position rectal digital examination was normal. There were no palpable masses. Sphincter tone was satisfactory. The video colonoscope was inserted transanally and advanced all the way to the cecum presented without visualized. The ileocecal valve and the appendiceal orifice were well seen. The mucosa were thoroughly examined. Prep was good. Findings moderate diverticulosis mostly in the sigmoid area uncomplicated. Mild internal hemorrhoids. There are no neoplasm polyps or any other mucosal abnormalities or evidence of inflammatory condition. The patient tolerated the procedure well without any evident complication. Recommendation May benefit from a fiber supplement daily to regulate her stools better. Follow-up colonoscopy in about 10 years or so. If she continues to have burning in the vaginal area may need to see her primary care physician or senior buyer planner.
[2017-09-26 13:42] VITALS: RESP 16
[2017-09-26 13:52] LABS: Glucose,Whole Blood 180 mg/dL (75-99)
[2017-09-26 13:57] VITALS: BP 157/79; PULSE 94
== END | disposition home or self-care (01) ==
LOC: ORWHC2ENDO 11:43
PROVIDERS: ATTEND Surgery
DX: K57.30 Diverticulosis of large intestine without perforation or abscess without bleeding (principal); K64.8 Other hemorrhoids; I48.91 Unspecified atrial fibrillation; E66.3 Overweight; Z68.41 Body mass index [BMI] 40.0-44.9, adult; G89.29 Other chronic pain; R10.2 Pelvic and perineal pain; E11.9 Type 2 diabetes mellitus without complications; I10 Essential (primary) hypertension; I25.10 Atherosclerotic heart disease of native coronary artery without angina pectoris; Z79.84 Long term (current) use of oral hypoglycemic drugs; Z79.1 Long term (current) use of non-steroidal anti-inflammatories (NSAID); Z79.899 Other long term (current) drug therapy; Z88.6 Allergy status to analgesic agent; Z79.02 Long term (current) use of antithrombotics/antiplatelets
CPT/HCPCS: 45378; J2001; J2704

== ENCOUNTER 2017-12-13 16:19 | Emergency (ER) | payer MEDICARE, BC ==
[2017-12-13 16:39] VITALS: TEMP 98.5
[2017-12-13] MEDS ORDERED: HYDROcodone/APAP 5-325MG 1 EACH TAB PO STA (17:11)
[2017-12-13] MEDS ORDERED: methylPREDNISolone SOD SUCCI 125 MG/2 ML VIAL IM STA (17:11)
--- NOTE | 2017-12-13 17:17 | ED ---
Back Pain HPI - General Chief Complaint: Back Pain/Injury Stated Complaint: Tailbone Pain Time Seen by Provider: 12/13/17 16:57 Source: patient, RN notes reviewed Mode of arrival: ambulatory Limitations: no limitations - History of Present Illness Initial Comments: This is a 77-year-old female who presents to the emergency department with chief complaint of acute on chronic back pain. Patient states that for the past couple of days her back pain has increased in intensity. She states that the pain is in her low back and across her hips into her tailbone. She describes the pain as gnawing and burning. She states that she has radiation of pain down both legs to her feet. She states that since midnight she has taken 4 tramadol and 5 Tylenol with little relief. Patient denies any saddle paresthesias or loss of bladder or bowel function. She denies urinary symptoms such as increased frequency, dysuria or hematuria. She denies any recent illnesses, fevers or chills. She denies any recent falls or injuries. - Related Data Home Medications Medication Instructions Recorded Confirmed traMADol HCl [Ultram] 100 mg PO Q6H PRN 09/09/17 12/13/17 Acetaminophen Tab [Tylenol Tab] 1,000 mg PO Q6HR PRN 09/25/17 12/13/17 Digoxin [Lanoxin] 250 mcg PO DAILY 12/13/17 12/13/17 Metoprolol Tartrate [Lopressor] 75 mg PO BID 12/13/17 12/13/17 Previous Rx's Medication Instructions Recorded Apixaban [Eliquis] 2.5 mg PO BID tab 05/29/17 Glimepiride [Amaryl] 2 mg PO BID #60 05/30/17 Allergies Allergy/AdvReac Type Severity Reaction Status Date / Time aspirin AdvReac Nausea Verified 12/13/17 16:52 Review of Systems ROS Statement: Those systems with pertinent positive or pertinent negative responses have been documented in the HPI. ROS Other: All systems not noted in ROS Statement are negative. Past Medical History Past Medical History: Diabetes Mellitus, Hypertension Additional Past Medical History / Comment(s): DDD History of Any Multi-Drug Resistant Organisms: None Reported Past Surgical History: Uterine Ablation Past Anesthesia/Blood Transfusion Reactions: No Reported Reaction Past Psychological History: No Psychological Hx Reported Smoking Status: Never smoker Past Alcohol Use History: None Reported Past Drug Use History: None Reported - Past Family History Mother Family Medical History: No Reported History Father Family Medical History: Unable to Obtain General Exam - General Exam Comments Initial Comments: General: Awake and alert, well-developed; in no apparent distress. Patient sitting comfortably in wheelchair. She is easily able to stand up from the wheelchair but uses the counter as leverage. HEENT: Head atraumatic, normocephalic. Pupils are equal, round and reactive to light. Extraocular movements intact. Oropharynx moist without erythema or exudate. Neck: Supple. Normal ROM. No tenderness. Back: Generalized tenderness across low back and sacrum. No bony point tenderness or SI joint tenderness. Sensation is intact. Pedal and posterior tibial pulses are 2+ equal and palpable bilaterally. Cardiovascular: Regular rate and rhythm. No murmurs, rubs or gallops. Chest symmetrical. Respiratory: Lungs clear to auscultation bilaterally. No wheezes, rales or rhonchi. Normal respiratory effort with no use of accessory muscles. Musculoskeletal: Normal ROM, no tenderness bilateral upper and lower extremities. Skin: [place], warm and dry without rashes. Neurological: Alert and oriented x3. CN II-XII grossly intact. Speech is fluent and answers are appropriate. No focal neuro deficits. Limitations: no limitations Course Vital Signs 12/13/17 16:32 Temperature 98.5 F Pulse Rate 119 H Respiratory 20 Rate Blood Pressure 133/60 O2 Sat by Pulse 98 Oximetry Medical Decision Making - Medical Decision Making This is a 77-year-old female presents to the emergency department with chief complaint of acute on chronic back pain. Patient was given a dose of Solu-Medrol , [place] and a Lidoderm patch while in the emergency department. She continued to complain, stating that her pain was not getting any better. I explained to patient that I cannot prescribe her any controlled substances, that she was given 124 [place] last month and 420 Tramadol. Patient is unhappy about this, stating that her primary care provider is on vacation and that nobody cares about her pain. X-rays of the lumbar spine, sacrum and coccyx revealed no acute abnormalities. No fractures. Patient continues to display drug-seeking behavior. She will be discharged home. - Radiology Data Radiology results: report reviewed X-ray sacrum and coccyx impression: No acute abnormalities sacrum and coccyx. No fracture. X-ray lumbar spine impression: Spondylotic changes. No fracture. Degenerative first-degree L3 to 4 spondylolisthesis. No significant change compared to old exam. Disposition Clinical Impression: Acute exacerbation of chronic low back pain Disposition: HOME SELF-CARE Condition: Good Instructions: Lidocaine Patch (On the skin), Chronic Back Pain (ED) Additional Instructions: Please follow up with primary care provider within 1-2 days. Return to emergency department if symptoms should worsen or any concerns arise. Referrals: Stanislaw Dewitt DO [Primary Care Provider] - 1-2 days Time of Disposition: 18:29
--- NOTE | 2017-12-13 18:01 | XR ---
EXAMINATION TYPE: XR lumbar spine 2 or 3V DATE OF EXAM: 12/13/2017 COMPARISON: 06/21/2016 HISTORY: Back pain TECHNIQUE: 3 views FINDINGS: There is 5 mm anterior subluxation of L3 in relation to L4. There is moderate narrowing of disc spaces at L2-3 L3-4 with spur formation. There is no compression fracture. Posterior elements ar e intact. There is slight levoscoliosis. Sacroiliac joints appear normal. IMPRESSION: Spondylotic changes. No fracture. Degenerative first degree L3-4 spondylolisthesis. No si gnificant change compared to old exam.
--- NOTE | 2017-12-13 18:02 | XR ---
EXAMINATION TYPE: XR sacrum coccyx DATE OF EXAM: 12/13/2017 COMPARISON: NONE HISTORY: Back pain TECHNIQUE: 3 views FINDINGS: The segments have normal alignment. There is vacuum disc at L4-5 and L5-S1. There is a larg e calcified uterine fibroid. Sacroiliac joints appear normal. IMPRESSION: No acute abnormality of the sacrum and coccyx. No fracture.
[2017-12-13] MEDS ORDERED: LIDOCAINE 5% PATCH TOPICAL STA (18:15)
[2017-12-13 18:34] VITALS: BP 163/75; PULSE 78; RESP 18
== END 2017-12-13 18:48 | disposition home or self-care (01) ==
LOC: EC 16:19
DX: M54.5 Low back pain (principal); G89.29 Other chronic pain; I10 Essential (primary) hypertension; Z88.6 Allergy status to analgesic agent; Z79.01 Long term (current) use of anticoagulants; Z79.899 Other long term (current) drug therapy
CPT/HCPCS: 99283; 96372; 72100; 72220; J2930

== ENCOUNTER → 2018-03-06 | Outpatient (CLI) | payer MEDICARE, BC ==
--- NOTE | 2018-03-06 15:31 | US ---
EXAMINATION TYPE: US transvaginal DATE OF EXAM: 03/06/2018 COMPARISON: NONE CLINICAL HISTORY: 77-year-old female R10.2 Pelvic And Perineal Pain. TECHNIQUE: Transvaginal sonographic images were done per order Date of LMP: Post menopausal patient Findings: Medical Record Consultant notes: Patient unable to well tolerate test. 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 Severe technical otero itations. EXAM MEASUREMENTS: Uterus: 7.9 x 3.2 x 6.0 cm Endometrial Stripe: unable to visualize due to extensive calcifications. Right Ovary: not visualized Left Ovary: not visualized 1. Uterus: unable to discern the uterine fundus as there are heavy calcifications obscuring the endo metrium 2. Endometrium: heavy calcifications obscure endometrium 3. Right Ovary: not visualized 4. Left Ovary: not visualized 5. Bilateral Adnexa: appears wnl 6. Posterior cul-de-sac: wnl IMPRESSION: 1. Heavy uterine calcifications obscuring the fundus and body as well as the endometrium. Consider fe male pelvic MRI to evaluate the junctional anatomy and exclude any endometrial abnormality. 2. Neither ovary could be visualized and are probably small given patient's postmenopausal status.
== END | disposition home or self-care (01) ==
LOC: RADUSWWP 13:01
PROVIDERS: ATTEND Family Medicine
DX: N85.8 Other specified noninflammatory disorders of uterus (principal)
CPT/HCPCS: 76830

== ENCOUNTER → 2018-04-03 | Outpatient (CLI) | payer MEDICARE, BC ==
--- NOTE | 2018-04-03 23:53 | MR ---
EXAMINATION TYPE: MR pelvis wo/w con DATE OF EXAM: 04/03/2018 COMPARISON: NONE HISTORY: Mass of uterus CONTRAST: Standard multiplanar, multisequence MRI departmental protocol utilizing 10 mL intravenous Gadavist ga dolinium contrast. FINDINGS: Uterus is lobulated in the fundus and measures 10.6 x 6.7 x 7.5 cm. There are multiple some what rounded masses involving the uterine fundus. The largest measures 3.7 cm with mixed signal. Thes e are consistent with multiple uterine fibroids. The endometrial cavity is not well visualized. I do not see evidence for endometrial thickening. There is a very small amount of free fluid in the pelvis. Bladder distends smoothly. I see no pelvic lymphadenopathy. There are no adnexal masses. I see no pathologic enhancement. IMPRESSION: Numerous rounded masses involving the uterine fundus consistent with multiple fibroids. No endometria l thickening seen. Minimal free fluid.
== END | disposition home or self-care (01) ==
LOC: RADMRIMAIN 12:33
PROVIDERS: ATTEND Family Medicine
DX: N85.8 Other specified noninflammatory disorders of uterus (principal); Z13.9 Encounter for screening, unspecified
CPT/HCPCS: 82565; 72197; A9581

== ENCOUNTER → 2018-07-25 | Outpatient (CLI) | payer MEDICARE, BC ==
--- NOTE | 2018-07-25 13:09 | XR ---
EXAMINATION TYPE: XR sacrum coccyx DATE OF EXAM: 07/25/2018 CLINICAL HISTORY: pain TECHNIQUE: Three views of the sacrum and coccyx are submitted. COMPARISON: 12/13/2017 Sacral alae appear symmetric. No evidence for fracture or bony lesion. Sacroiliac joints are within normal limits. Visualized coccygeal segments are free of fracture or lesion. Severe degenerative di sc space disease at L5-S1. Calcified leiomyoma within the pelvis. IMPRESSION: No acute process identified.
== END | disposition home or self-care (01) ==
LOC: RADXRMAIN 12:06
PROVIDERS: ATTEND Family Medicine
DX: G89.29 Other chronic pain (principal); M53.3 Sacrococcygeal disorders, not elsewhere classified
CPT/HCPCS: 72220

== ENCOUNTER 2019-04-02 21:57 | Inpatient (IN) | payer MEDICARE, BC ==
--- NOTE | 2019-04-02 22:49 | ED ---
General Adult HPI - General Chief complaint: Recheck/Abnormal Lab/Rx Stated complaint: Full Body Pain Time Seen by Provider: 04/02/19 22:01 Source: patient, family ( and sister), EMS Mode of arrival: EMS Limitations: physical limitation - History of Present Illness Initial comments: This patient is a 78-year-old woman who comes by ambulance to be evaluated for pain she states "all over." When I interview the patient, history is limited as the patient states "I have already told 5 people." The patient does appear angry and not wanting to discuss the full history of her symptoms. She states that she hurts "everywhere." And declines to pick a spot that is worse. The patient states this been going on for 3 years, getting progressively worse. Family relates that she had been given physical therapy, but she does not appear to want to go to physical therapy as it causes pains. -: days(s) Location: back Quality: burning, sharp Consistency: constant Improves with: immobilization Worsens with: movement - Related Data Home Medications Medication Instructions Recorded Confirmed traMADol HCl [Ultram] 100 mg PO Q6H PRN 09/09/17 12/13/17 Acetaminophen Tab [Tylenol Tab] 1,000 mg PO Q6HR PRN 09/25/17 12/13/17 Digoxin [Lanoxin] 250 mcg PO DAILY 12/13/17 12/13/17 Metoprolol Tartrate [Lopressor] 75 mg PO BID 12/13/17 12/13/17 Previous Rx's Medication Instructions Recorded Apixaban [Eliquis] 2.5 mg PO BID tab 05/29/17 Glimepiride [Amaryl] 2 mg PO BID #60 05/30/17 Allergies Allergy/AdvReac Type Severity Reaction Status Date / Time aspirin AdvReac Nausea Verified 12/13/17 16:52 Review of Systems ROS Statement: Those systems with pertinent positive or pertinent negative responses have been documented in the HPI. ROS Other: All systems not noted in ROS Statement are negative. Limitations: ROS unobtainable due to patients medical condition Constitutional: Denies: fever, chills Respiratory: Denies: cough, dyspnea Cardiovascular: Denies: chest pain Musculoskeletal: Reports: back pain Neurological: Denies: headache Past Medical History Past Medical History: Diabetes Mellitus, Hypertension Additional Past Medical History / Comment(s): DDD History of Any Multi-Drug Resistant Organisms: None Reported Past Surgical History: Uterine Ablation Past Anesthesia/Blood Transfusion Reactions: No Reported Reaction Past Psychological History: No Psychological Hx Reported Smoking Status: Never smoker Past Alcohol Use History: None Reported Past Drug Use History: None Reported - Past Family History Mother Family Medical History: No Reported History Father Family Medical History: Unable to Obtain General Exam Limitations: no limitations General appearance: alert, anxious Head exam: Present: atraumatic, normocephalic Eye exam: Present: normal appearance. Absent: scleral icterus, conjunctival injection ENT exam: Present: mucous membranes dry Neck exam: Present: normal inspection, full ROM. Absent: tenderness Respiratory exam: Present: normal lung sounds bilaterally. Absent: respiratory distress, wheezes, rales, rhonchi, stridor Cardiovascular Exam: Present: tachycardia, irregular rhythm, normal heart s ounds. Absent: systolic murmur, diastolic murmur, rubs, gallop GI/Abdominal exam: Present: soft. Absent: tenderness, guarding, rebound, rigid Extremities exam: Present: normal inspection, normal capillary refill, pedal edema. Absent: calf tenderness Back exam: Present: normal inspection. Absent: CVA tenderness (R), CVA tenderness (L) Neurological exam: Present: alert Skin exam: Present: warm, dry, intact, normal color. Absent: rash Course Vital Signs 04/02/19 04/02/19 22:16 22:39 Temperature 97.9 F Pulse Rate 120 H 141 H Respiratory 18 18 Rate Blood Pressure 113/41 121/57 O2 Sat by Pulse 99 99 Oximetry EKG Findings - EKG Comments: EKG Findings:: Possible old anteroseptal infarct. Low voltage QRS complex. - EKG Results: EKG: interpreted by ERMD, normal axis EKG shows: atrial fibrillation (Rate approximate 120 bpm) Disposition Referrals: Stanislaw Dewitt DO [Primary Care Provider] - 1-2 days
[2019-04-02 23:40] LABS: Basophils % (A) 0 %; Eosinophils # (A) 0.1 k/uL (0-0.7); Eosinophils % (A) 0 %; HCT 32.9 % (34.0-46.0); HGB 10.5 gm/dL (11.4-16.0); Hypochromasia Slight; Lymphocytes # (A) 2.1 k/uL (1.0-4.8); Lymphocytes % (A) 11 %; MCH 28.4 pg (25.0-35.0); MCHC 31.9 g/dL (31.0-37.0); MCV 88.9 fL (80.0-100.0); Mean Platelet Volume 6.6; Monocytes # (A) 0.8 k/uL (0-1.0); Monocytes % (A) 5 %; Neutrophils # (A) 15.3 k/uL (1.3-7.7); Neutrophils % (A) 83 %; Platelet Count 493 k/uL (150-450); WBC 18.5 k/uL (3.8-10.6)
[2019-04-02 23:59] LABS: ALT 13 U/L (9-52); AST 15 U/L (14-36); Albumin 3.3 g/dL (3.5-5.0); Alkaline Phosphatase 164 U/L (38-126); Anion Gap 11 mmol/L; Blood Urea Nitrogen 16 mg/dL (7-17); Calcium 9.3 mg/dL (8.4-10.2); Carbon Dioxide 28 mmol/L (22-30); Chloride 100 mmol/L (98-107); Glucose 154 mg/dL (74-99); Potassium 3.9 mmol/L (3.5-5.1); Sodium 139 mmol/L (137-145); Total Bilirubin 0.8 mg/dL (0.2-1.3); Total Protein 6.3 g/dL (6.3-8.2)
[2019-04-03 00:10] LABS: C Reactive Protein 161.8 mg/L (<10.0)
[2019-04-03] MEDS ORDERED: DILTIAZEM DRIP BOLUS FROM BAG 1 MG SOLN IV ONE (00:51)
[2019-04-03] MEDS ORDERED: MORPHINE SULFATE 4 MG/ML SYRINGE IV STA (00:59)
[2019-04-03] MEDS ORDERED: DILTIAZEM 125 MG in SODIUM CHLORIDE 0.9% 100 ML IV SCH (01:00)
[2019-04-03 02:15] LABS: Appearance,Urine Clear (Clear); Bilirubin,Urine Negative (Negative); Blood,Urine Negative (Negative); Color,Urine Yellow; Glucose,Urine (UA) Negative (Negative); Ketones,Urine 1+ (Negative); Leukocyte Esterase,Urine Negative (Negative); Nitrite,Urine Negative (Negative); PH, Urine 7.5 (5.0-8.0); Protein,Urine Negative (Negative); Specific Gravity,Urine 1.013 (1.001-1.035); Urobilinogen,Urine <2.0 mg/dL (<2.0)
--- NOTE | 2019-04-03 02:24 | CT ---
EXAM: CT Thoracic Spine Without Intravenous Contrast CLINICAL HISTORY: ITS.REASON CT Reason: Pain TECHNIQUE: Axial computed tomography images of the thoracic spine without intravenous contrast. CTDI is 15 mGy and DLP is 1012 mGy-cm. This CT exam was performed using one or more of the following dose reduction techniques: automated exposure control, adjustment of the mA and/or kV according to patient size, and/or use of iterative reconstruction technique. COMPARISON: No relevant prior studies available. FINDINGS: Vertebrae: No acute fracture. Discs/spinal canal/neural foramina: Moderate multilevel degenerative disc disease. No spinal canal stenosis. Soft tissues: Unremarkable. IMPRESSION: No acute fracture. EXAM: CT Lumbar Spine Without Intravenous Contrast CLINICAL HISTORY: ITS.REASON CT Reason: Pain TECHNIQUE: Axial computed tomography images of the lumbar spine without intravenous contrast. CTDI is 15 mGy and DLP is 1012 mGy-cm. This CT exam was performed using one or more of the following dose reduction techniques: automated exposure control, adjustment of the mA and/or kV according to patient size, and/or use of iterative reconstruction technique. COMPARISON: No relevant prior studies available. FINDINGS: Vertebrae: Mild levoscoliosis. No acute fracture. Discs/spinal canal/neural foramina: Moderate to severe spinal canal stenosis at L3-4 and L4-5 secondary to disc bulging with ligamentum flavum redundancy. Soft tissues: Unremarkable. IMPRESSION: No acute fracture. Moderate to severe spinal canal stenosis at L3-4 and L4-5 secondary to degenerative changes. Recommend correlation with MRI of the lumbar spine on a nonemergent basis for better characterization.
--- NOTE | 2019-04-03 02:30 | CT ---
EXAM: CT Chest With Intravenous Contrast CLINICAL HISTORY: ITS.REASON CT Reason: Pain TECHNIQUE: Axial computed tomography images of the chest with intravenous contrast. CTDI is17 mGy and DLP is 676 mGy-cm. This CT exam was performed using one or more of the following dose reduction techniques: automated exposure control, adjustment of the mA and/or kV according to patient size, and/or use of iterative reconstruction technique. COMPARISON: No relevant prior studies available. FINDINGS: Lungs: No mass. No consolidation. Pleural space: Mild left pleural effusion Heart: Mildly enlarged heart size without pericardial effusion. Bones/joints: No acute fracture. Soft tissues: Unremarkable. Vasculature: Unremarkable. No thoracic aortic aneurysm. Lymph nodes: No enlarged lymph nodes. IMPRESSION: No acute intrathoracic findings. Mild cardiomegaly with mild left pleural effusion. EXAM: CT Abdomen and Pelvis With Intravenous Contrast CLINICAL HISTORY: ITS.REASON CT Reason: Pain TECHNIQUE: Axial computed tomography images of the abdomen and pelvis with intravenous contrast. CTDI is17 mGy and DLP is 676 mGy-cm. This CT exam was performed using one or more of the following dose reduction techniques: automated exposure control, adjustment of the mA and/or kV according to patient size, and/or use of iterative reconstruction technique. COMPARISON: No relevant prior studies available. FINDINGS: ABDOMEN: Liver: Unremarkable. Gallbladder and bile ducts: Unremarkable. Pancreas: Unremarkable. Spleen: Unremarkable. Adrenals: Unremarkable. Kidneys and ureters: No hydronephrosis. Stomach and bowel: No bowel obstruction. No bowel wall thickening. PELVIS: Appendix: No evidence of appendicitis. Bladder: Unremarkable. Reproductive: Calcified fibroids. ABDOMEN and PELVIS: Intraperitoneal space: Unremarkable. Bones/joints: No acute fractures. Soft tissues: Fat stranding along the left anterior abdominal wall.. Vasculature: No abdominal aortic aneurysm. Lymph nodes: No enlarged lymph nodes. IMPRESSION: Fat stranding along the left anterior abdominal wall subcutaneous tissue without underlying hematoma. Possibly area of trauma or inflammation. Lesions Calcified uterine fibroids.
[2019-04-03] MEDS ORDERED: NITROGLYCERIN SL TABS 0.4 MG TAB SUBLINGUAL PRN (02:44)
[2019-04-03] MEDS ORDERED: SODIUM CHLORIDE 0.9% 1,000 ML IV SCH (02:45)
[2019-04-03] MEDS ORDERED: traMADol 50 MG TAB PO PRN (02:48)
[2019-04-03] MEDS ORDERED: LEVOFLOXACIN 750MG-D5W PMX 750 MG in DEXTROSE/WATER 1 150ML.BAG IVPB STA (02:49)
[2019-04-03 04:42] VITALS: BMI 38.5
[2019-04-03] MEDS: ACETAMINOPHEN TAB 500 MG TAB PO PRN ×2 (04:59→10:25)
[2019-04-03 06:08] LABS: Glucose,Whole Blood 237 mg/dL (75-99)
[2019-04-03] MEDS ORDERED: METOPROLOL TARTRATE 50 MG TAB PO SCH (09:00)
[2019-04-03] MEDS ORDERED: DIGOXIN 250 MCG TAB PO SCH (09:00)
[2019-04-03] MEDS ORDERED: FUROSEMIDE 10 MG/ML 4 ML VIAL IV STA (09:50)
--- NOTE | 2019-04-03 09:53 | P.CRDCN ---
History of Present Illness Consult date: 04/03/19 Requesting physician: Jose Elias Morton Consult reason: atrial fibrillation Chief complaint: Weakness and generalized body pain History of present illness: This is a 78-year-old female with known history of hypertension, diabetes, hyperlipidemia, obesity, who presents to the hospital on this occasion with symptoms of severe pain in her legs and arms, she's also complaining of significant weakness. According to the patient, she's been dealing with this for approximately 3 years and is becoming quite frustrated that she's not getting any relief of symptoms. In April 2017 she was admitted here with a urinary tract infection, cardiology was consulted at that time because the patient was also noted to be in atrial fibrillation and had an element of congestive heart failure on that admission. History was obtained from the patient and her , difficult to obtain an accurate history really from either of them. According to the , she has followed with a associate partner in the office on 2 separate occasions since her admission here in 2016, he is unsure of who she has seen at that time. She did have an echocardiogram with Doppler study performed in April 2017 which revealed a normal left ventricular systolic function. Cardiology consultation was requested on this admission because of atrial fibrillation. Her blood pressure on admission here was 113/40 with a heart rate of 120, 99% on room air. White blood cell count is elevated at 18.5, hemoglobin 10.5, platelet count 493. Sodium 139, potassium 3.9, BUN 16 and creatinine 0.7. C-reactive protein 161.8, troponins negative 2, urinalysis negative, no BNP level was obtained. A CAT scan of the chest abdomen and pelvis was performed which did not reveal any acute intrathoracic findings. Fat stranding along the left anterior abdominal wall subcutaneous tissue without any underlying hematoma. Possibly area of trauma or inflammation. Ossified uterine fibroids. CAT scan of the spine did not reveal any acute fracture. Moderate to severe spinal cord stenosis at L3 to 4 and L4 to 5 secondary to degenerative disc disease, recommend correlation with MRI of the spine. At the time of my examination, patient still complains of persistent pain in her bilateral legs and arms, generally feels extremely weak. She denies any overt shortness of breath, but does have swelling in her lower extremities as well as some areas of erythema noted. Her EKG on presentation here shows atrial fibrillation with a rapid ventricular response and she is currently on IV Cardizem drip at this time. She takes Eliquis for anticoagulation. Past Medical History Past Medical History: Diabetes Mellitus, Hypertension Additional Past Medical History / Comment(s): DDD History of Any Multi-Drug Resistant Organisms: None Reported Past Surgical History: Uterine Ablation Past Anesthesia/Blood Transfusion Reactions: No Reported Reaction Past Psychological History: No Psychological Hx Reported Smoking Status: Never smoker Past Alcohol Use History: None Reported Past Drug Use History: None Reported - Past Family History Mother Family Medical History: No Reported History Father Family Medical History: Unable to Obtain Medications and Allergies Home Medications Medication Instructions Recorded Confirmed Type Apixaban [Eliquis] 2.5 mg PO BID tab 05/29/17 04/03/19 Rx Glimepiride [Amaryl] 2 mg PO BID #60 05/30/17 04/03/19 Rx Metoprolol Tartrate [Lopressor] 50 mg PO BID 12/13/17 04/03/19 History Digoxin [Lanoxin] 125 mcg PO BID 04/03/19 04/03/19 History HYDROcodone/APAP 10-325MG [[place] 1 tab PO Q6HR PRN 04/03/19 04/03/19 History 10-325] Torsemide [Demadex] 20 mg PO DAILY 04/03/19 04/03/19 History metFORMIN HCL ER [Glucophage Xr] 500 mg PO BID 04/03/19 04/03/19 History Allergies Allergy/AdvReac Type Severity Reaction Status Date / Time aspirin AdvReac Nausea Verified 04/02/19 23:50 Physical Exam Vitals: Vital Signs Temp Pulse Pulse Resp BP BP Pulse Ox 04/03/19 04:33 98.1 F 124 H 18 111/56 98 04/03/19 04:00 98.1 F 116 H 18 111/59 98 04/03/19 03:40 102 H 16 110/56 99 04/03/19 03:00 103 H 04/03/19 01:21 103 H 20 121/57 100 04/02/19 22:39 141 H 18 121/57 99 04/02/19 22:16 97.9 F 120 H 18 113/41 99 Intake and Output 04/02/19 04/03/19 04/03/19 22:59 06:59 14:59 Intake Total 140 Balance 140 Intake: Intake, IV Titration 40 Amount Sodium Chloride 0.9% 1, 40 000 ml @ 20 mls/hr IV . Q24H [facility] Rx#:[id number] Oral 100 Other: Voiding Method Bedside Commode Bedpan Weight 108.862 kg 88.5 kg PHYSICAL EXAMINATION: GENERAL: 88-year-old female, complaining of generalized aches and pains at the time of my examination HEENT: Head is atraumatic, normocephalic. Pupils equal, round. Sclera anicteric. Conjunctiva are clear. Mucous membranes of the mouth are moist. Neck is supple. There is elevated jugular venous pressure. No carotid bruit is heard. HEART EXAMINATION: Heart S1 and S2 irregularly irregular systolic murmur is heard CHEST EXAMINATION: Lungs reveal mild diminished air entry to the left posteriorly ABDOMEN: Soft, obese, nontender. Bowel sounds are heard. No organomegaly noted. EXTREMITIES:[ 1+ peripheral pulses with 1-2+ evidence of peripheral edema and areas of erythema and chronic venous stasis noted NEUROLOGIC patient is awake, alert and oriented 2 . . Results 04/02/19 23:25 04/02/19 23:25 Cardiac Enzymes 04/02/19 04/02/19 04/03/19 Range/Units 23:25 23:25 05:42 AST 15 (14-36) U/L Troponin I <0.012 <0.012 (0.000-0.034) ng/mL CBC 04/02/19 Range/Units 23:25 WBC 18.5 H (3.8-10.6) k/uL RBC 3.70 L (3.80-5.40) m/uL Hgb 10.5 L (11.4-16.0) gm/dL Hct 32.9 L (34.0-46.0) % Plt Count 493 H (150-450) k/uL Comprehensive Metabolic Panel 04/02/19 Range/Units 23:25 Sodium 139 (137-145) mmol/L Potassium 3.9 (3.5-5.1) mmol/L Chloride 100 (98-107) mmol/L Carbon Dioxide 28 (22-30) mmol/L BUN 16 (7-17) mg/dL Creatinine 0.67 (0.52-1.04) mg/dL Glucose 154 H (74-99) mg/dL Calcium 9.3 (8.4-10.2) mg/dL AST 15 (14-36) U/L ALT 13 (9-52) U/L Alkaline Phosphatase 164 H (38-126) U/L Total Protein 6.3 (6.3-8.2) g/dL Albumin 3.3 L (3.5-5.0) g/dL Current Medications Generic Name Dose Route Start Last Admin Trade Name Freq PRN Reason Stop Dose Admin Acetaminophen 1,000 mg 04/03/19 02:48 04/03/19 04:59 Tylenol Tab PO 1,000 mg Q6HR PRN Administration Pain Apixaban 2.5 mg 04/03/19 09:00 Eliquis PO BID [facility] Digoxin 250 mcg 04/03/19 09:00 Lanoxin PO DAILY MINOO Glimepiride 2 mg 04/03/19 09:00 Amaryl PO BID [facility] Diltiazem HCl 125 mg/ Sodium 125 mls @ 5 mls/hr 04/03/19 01:00 04/03/19 02:11 Chloride IV 5 mg/hr .Q24H MINOO 5 mls/hr Administration 5 MG/HR Sodium Chloride 1,000 mls @ 20 mls/hr 04/03/19 02:45 04/03/19 03:42 Saline 0.9% IV 20 mls/hr .Q24H MINOO Administration Metoprolol Tartrate 75 mg 04/03/19 09:00 Lopressor PO BID [facility] Nitroglycerin 0.4 mg 04/03/19 02:44 Nitrostat SUBLINGUAL Q5M PRN Chest Pain Tramadol HCl 100 mg 04/03/19 02:48 Ultram PO Q8H PRN Pain Intake and Output 04/02/19 04/03/19 04/03/19 22:59 06:59 14:59 Intake Total 140 Balance 140 Intake: Intake, IV Titration 40 Amount Sodium Chloride 0.9% 1, 40 000 ml @ 20 mls/hr IV . Q24H [facility] Rx#:[id number] Oral 100 Other: Voiding Method Bedside Commode Bedpan Weight 108.862 kg 88.5 kg 04/02/19 23:25 04/02/19 23:25 EKG Interpretations (text) EKG shows atrial fibrillation with moderately rapid ventricular response Assessment and Plan Plan: Assessment and plan #1 atrial fibrillation with rapid ventricular response, chronic persistent, on Eliquis for anticoagulation #2 Bilateral leg, back and arm pain, with associated weakness, C-reactive protein 161 #3 hypertension #4 diabetes #5 hyperlipidemia #6 obesity Plan Echocardiogram with Doppler study performed in 2017 revealed a normal left ventricular systolic function. We will repeat an echo on this admission. We will also check a sedimentation rate, increase beta ramses dose 200 mg twice a day, discontinue Cardizem, discontinue Lanoxin. Start the patient on some diuretics. We will also request a chest x-ray and BNP level be obtained. Further recommendations to follow. DNP note has been reviewed, I agree with a documented findings and plan of care. Patient was seen and examined.
[2019-04-03] MEDS: GLIMEPIRIDE 2 MG TAB PO SCH ×2 (10:23→20:19)
[2019-04-03] MEDS: APIXABAN 2.5 MG TABLET PO SCH ×2 (10:23→20:19)
--- NOTE | 2019-04-03 11:13 | XR ---
EXAMINATION TYPE: XR chest 2V DATE OF EXAM: 04/03/2019 COMPARISON: CT earlier today. HISTORY: Shortness of breath and weakness. TECHNIQUE: Frontal and lateral views of the chest are obtained. FINDINGS: There is developing left basilar opacity consistent with worsening small to moderate-sized left pleural effusion. Right lung remains clear. The cardiac silhouette size remains enlarged. Mult ilevel spurring in thoracic spine is noted. IMPRESSION: Cardiomegaly with worsening small to moderate-sized left pleural effusion and associated left basilar compressive atelectasis noted.
[2019-04-03] MEDS ORDERED: METOPROLOL TARTRATE 50 MG TAB PO STA (11:31)
[2019-04-03] MEDS: metFORMIN 500 MG TAB PO SCH ×2 (11:38→17:12)
[2019-04-03] MEDS: DIGOXIN 125 MCG TAB PO SCH ×2 (11:38→20:19)
[2019-04-03 11:48] LABS: Glucose,Whole Blood 157 mg/dL (75-99)
[2019-04-03] MEDS: HYDROcodone/APAP 10-325MG 1 EACH TAB PO PRN (14:01)
[2019-04-03 16:54] LABS: Glucose,Whole Blood 149 mg/dL (75-99)
[2019-04-03] MEDS: FUROSEMIDE 40 MG TAB PO SCH (17:06)
[2019-04-03] MEDS: ACETAMINOPHEN TAB 500 MG TAB PO SCH ×2 (17:11→20:10)
[2019-04-03] MEDS: BACLOFEN 10 MG TAB PO SCH ×3 (17:11→20:19)
--- NOTE | 2019-04-03 19:51 | P.CONS ---
History of Present Illness - Reason for Consult Consult date: 04/03/19 Requesting physician: Jose Elias Morton - Chief Complaint chronic pain - History of Present Illness Thank you Dr. Morton for allowing me to participate in the care of Ms. Hunter. Ms Hunter is a 78-year-old female well known to [facility]. She was admitted to the hospital for atrial fibrillation and also has complaints of chronic pain. She states that she has pain everywhere and was told it is due to arthritis. She has had some interventional pain procedures without benefit and last year was told she was a candidate for lumbar decompression and fusion. She complains of back pain with radiation down the right leg at times that is sharp 10 out of 10 in intensity. She states she is unable to walk very far due to pain in her back and legs and states it also feels like her legs don't move. She also states that she is tired and tired of her pain and is no longer motivated to try to get better. Review of Systems 10 point review of systems was performed and was significant for lower extremity weakness, fatigue, shortness of breath, peripheral edema the remainder was negative. Past Medical History Past Medical History: Diabetes Mellitus, Hypertension Additional Past Medical History / Comment(s): DDD History of Any Multi-Drug Resistant Organisms: None Reported Past Surgical History: Uterine Ablation Past Anesthesia/Blood Transfusion Reactions: No Reported Reaction Past Psychological History: No Psychological Hx Reported Smoking Status: Never smoker Past Alcohol Use History: None Reported Past Drug Use History: None Reported - Past Family History Mother Family Medical History: No Reported History Father Family Medical History: Unable to Obtain Medications and Allergies Home Medications Medication Instructions Recorded Confirmed Type Apixaban [Eliquis] 2.5 mg PO BID tab 05/29/17 04/03/19 Rx Glimepiride [Amaryl] 2 mg PO BID #60 05/30/17 04/03/19 Rx Metoprolol Tartrate [Lopressor] 50 mg PO BID 12/13/17 04/03/19 History Digoxin [Lanoxin] 125 mcg PO BID 04/03/19 04/03/19 History HYDROcodone/APAP 10-325MG [[place] 1 tab PO Q6HR PRN 04/03/19 04/03/19 History 10-325] Torsemide [Demadex] 20 mg PO DAILY 04/03/19 04/03/19 History metFORMIN HCL ER [Glucophage Xr] 500 mg PO BID 04/03/19 04/03/19 History Allergies Allergy/AdvReac Type Severity Reaction Status Date / Time aspirin AdvReac Nausea Verified 04/02/19 23:50 Physical Exam Osteopathic Statement: *. No significant issues noted on an osteopathic structural exam other than those noted in the History and Physical/Consult. Vitals: Vital Signs Temp Pulse Pulse Resp BP BP Pulse Ox 04/03/19 16:00 98.1 F 111 H 18 131/56 97 04/03/19 12:00 115 H 04/03/19 08:40 98.3 F 115 H 17 129/86 98 04/03/19 04:33 98.1 F 124 H 18 111/56 98 04/03/19 04:00 98.1 F 116 H 18 111/59 98 04/03/19 03:40 102 H 16 110/56 99 04/03/19 03:00 103 H 04/03/19 01:21 103 H 20 121/57 100 04/02/19 22:39 141 H 18 121/57 99 04/02/19 22:16 97.9 F 120 H 18 113/41 99 Intake and Output 04/03/19 04/03/19 04/03/19 06:59 14:59 22:59 Intake Total 140 480 Output Total 150 Balance 140 330 Intake: Intake, IV Titration 40 Amount Sodium Chloride 0.9% 1, 40 000 ml @ 20 mls/hr IV . Q24H [facility] Rx#:[id number] Oral 100 480 Output: Urine 150 Other: Voiding Method Bedside Commode Bedpan # Voids 1 1 Weight 88.5 kg Gen.: Patient is alert and oriented not in acute distress HEENT: Normocephalic atraumatic extraocular muscles intact Respiratory: Breathing was nonlabored no accessory muscle use Cardiovascular: Irregular rhythm, 2+ lower extremity edema, pitting Abdomen: Soft, nontender Musculoskeletal: Hip and knee pain with internal or external rotation of the b ilateral hips with decreased range of motion, decreased extension of the left knee, hip flexion 3/5 bilaterally, knee extension 4/5 bilaterally, ankle inversion, eversion and EHL 3+/5 bilaterally, patient had poor participation with this part of the examination Neurologic: Patellar and Achilles reflexes were 0/4 bilaterally, sensation to pinprick decreased L4 through S1 Results CBC & Chem 7: 04/02/19 23:25 04/02/19 23:25 Labs: Abnormal Lab Results - Last 24 Hours (Table) 04/02/19 04/02/19 04/03/19 Range/Units 23:25 23:25 02:00 WBC 18.5 H (3.8-10.6) k/uL RBC 3.70 L (3.80-5.40) m/uL Hgb 10.5 L (11.4-16.0) gm/dL Hct 32.9 L (34.0-46.0) % Plt Count 493 H (150-450) k/uL Neutrophils # 15.3 H (1.3-7.7) k/uL ESR (0-20) mm/hr Glucose 154 H (74-99) mg/dL POC Glucose (mg/dL) (75-99) mg/dL Alkaline Phosphatase 164 H (38-126) U/L C-Reactive Protein 161.8 H (<10.0) mg/L Albumin 3.3 L (3.5-5.0) g/dL Urine Ketones 1+ H (Negative) 04/03/19 04/03/19 04/03/19 Range/Units 06:07 11:47 12:16 WBC (3.8-10.6) k/uL RBC (3.80-5.40) m/uL Hgb (11.4-16.0) gm/dL Hct (34.0-46.0) % Plt Count (150-450) k/uL Neutrophils # (1.3-7.7) k/uL ESR 106 H (0-20) mm/hr Glucose (74-99) mg/dL POC Glucose (mg/dL) 237 H 157 H (75-99) mg/dL Alkaline Phosphatase (38-126) U/L C-Reactive Protein (<10.0) mg/L Albumin (3.5-5.0) g/dL Urine Ketones (Negative) 04/03/19 Range/Units 16:52 WBC (3.8-10.6) k/uL RBC (3.80-5.40) m/uL Hgb (11.4-16.0) gm/dL Hct (34.0-46.0) % Plt Count (150-450) k/uL Neutrophils # (1.3-7.7) k/uL ESR (0-20) mm/hr Glucose (74-99) mg/dL POC Glucose (mg/dL) 149 H (75-99) mg/dL Alkaline Phosphatase (38-126) U/L C-Reactive Protein (<10.0) mg/L Albumin (3.5-5.0) g/dL Urine Ketones (Negative) Assessment and Plan (1) Chronic pain Current Visit: Yes Status: Acute Code(s): G89.29 - OTHER CHRONIC PAIN SNOMED Code(s): 78349499 (2) Lumbar back pain Current Visit: Yes Status: Acute Code(s): M54.5 - LOW BACK PAIN SNOMED Code(s): 788103916 (3) Lumbar back pain with radiculopathy affecting lower extremity Current Visit: Yes Status: Acute Code(s): M54.16 - RADICULOPATHY, LUMBAR REGION SNOMED Code(s): 471818099 (4) Lumbar disc disease with radiculopathy Current Visit: Yes Status: Acute Code(s): M51.16 - INTERVERTEBRAL DISC DISORDERS W RADICULOPATHY, LUMBAR REGION SNOMED Code(s): 339309889 (5) Lumbar spondylosis Current Visit: Yes Status: Acute Code(s): M47.816 - SPONDYLOSIS W/O MYELOPATHY OR RADICULOPATHY, LUMBAR REGION SNOMED Code(s): 093744815 (6) Lumbar stenosis with neurogenic claudication Current Visit: Yes Status: Acute Code(s): M48.062 - SPINAL STENOSIS, LUMBAR REGION WITH NEUROGENIC CLAUDICATION SNOMED Code(s): 63580155 (7) Lumbar foraminal stenosis Current Visit: Yes Status: Acute Code(s): M99.83 - OTHER BIOMECHANICAL LESIONS OF LUMBAR REGION SNOMED Code(s): 928988227 (8) Diabetic neuropathy Current Visit: Yes Status: Acute Code(s): E11.40 - TYPE 2 DIABETES MELLITUS WITH DIABETIC NEUROPATHY, UNSP SNOMED Code(s): 280746887 (9) Physical deconditioning Current Visit: Yes Status: Acute Code(s): R53.81 - OTHER MALAISE SNOMED C ode(s): 46948086593661 (10) Muscular deconditioning Current Visit: Yes Status: Acute Code(s): R29.898 - OTH SYMPTOMS AND SIGNS INVOLVING THE MUSCULOSKELETAL SYSTEM SNOMED Code(s): 13262330 (11) Deconditioned low back Current Visit: Yes Status: Acute Code(s): R29.898 - OTH SYMPTOMS AND SIGNS INVOLVING THE MUSCULOSKELETAL SYSTEM SNOMED Code(s): 544174677 (12) Pain due entirely to psychological factors Current Visit: Yes Status: Acute Code(s): F45.41 - PAIN DISORDER EXCLUSIVELY RELATED TO PSYCHOLOGICAL FACTORS SNOMED Code(s): 6055532 (13) Depression Current Visit: Yes Status: Acute Code(s): F32.9 - MAJOR DEPRESSIVE DISORDER, SINGLE EPISODE, UNSPECIFIED SNOMED Code(s): 35369586 Plan: Discussed with patient that all of her pain problems cannot be completely resolved and only managed. Discussed with the patient she was a surgical candidate for lumbar decompression and she should consider this. Discussed with the patient that she needs to participate in physical therapy as it is the mainstay of treatment for spinal stenosis and increasing walking distance. Stress with the patient that I agree that she should not drive as she has neuropathy and lower extremity weakness. Can continue current pain medicines will add Cymbalta 30 mg once daily for depression, neuropathy, musculoskeletal pain. Cymbalta is be titrated upwards on an outpatient basis at 2-4 week intervals. Patient can follow-up in the office for further management as her problems are best treated on an outpatient basis. Time with Patient: Greater than 30
[2019-04-03] MEDS: METOPROLOL TARTRATE 50 MG TAB PO SCH (20:18)
[2019-04-03] MEDS: ATORVASTATIN 40 MG TAB PO SCH (20:22)
[2019-04-03 21:04] LABS: Glucose,Whole Blood 226 mg/dL (75-99)
--- NOTE | 2019-04-03 22:26 | HP ---
HISTORY AND PHYSICAL DATE OF ADMISSION: 04/03/2019 DATE OF SERVICE: 04/03/2019 PRESENTING COMPLAINT: Pain all over. Tired. HISTORY OF PRESENTING COMPLAINT: This is a 78-year-old patient of Dr. Dewitt who used to follow with Dr. Bowen previously. Patient is entirely focused about pain which she says is all over the body from head to toe. She did get an extensive workup done while she was with Dr. Bowen, including getting hospitalized. Then she switched to Dr. Dewitt. Dr. Dewitt referred her to [facility] and she was seen there by the orthopedician, pain specialist and the vascular surgery physician for physical rehab. None of those has worked for her. Patient's appetite is fine. Bowel movements every 1-3 days. She gets a burning sensation sometimes when she swallows. Does use a walker. Her activity is getting less and lesser. She has also been getting a bit short of breath. No fever. No chills. Also present in the room are patient's and brother, his and his daughter. Patient also had slight edema. Also had atrial fibrillation, uncontrolled, and some shortness of breath. Patient did get medications for the same. REVIEW OF SYSTEMS: CONSTITUTIONAL: Tired. HEENT: None. RESPIRATORY: Some shortness of breath. CARDIOVASCULAR: Some palpitation. GASTROINTESTINAL: Some discomfort with swallowing. GENITOURINARY: None. MUSCULOSKELETAL: Aches and pains all over the body. DERMATOLOGICAL: None. HEMATOLOGIC: None. LYMPHATICS: None. PSYCHIATRY: Very anxious. NEUROLOGICAL: Some numbness and tingling. PAST MEDICAL HISTORY: 1. Diabetes mellitus, type 2. 2. Hypertension. 3. Osteoarthritis. PAST SURGICAL HISTORY: Uterine ablation. SOCIAL HISTORY: No smoking. No alcohol. . FAMILY HISTORY: Reviewed; noncontributory to presentation. HOME MEDICATIONS: 1. Glucophage XR 500 mg b.i.d. 2. Demadex 20 mg p.o. daily. 3. Digoxin 125 mcg b.i.d. 4. Lopressor 50 mg b.i.d. 5. [place] 10 one tablet q.6 p.r.n. 6. Amaryl 2 mg b.i.d. 7. Eliquis 2.5 b.i.d. ALLERGIES: ASPIRIN. PHYSICAL EXAMINATION: VITAL SIGNS ON PRESENTATION: Temperature 97.9, pulse 120, respiration 18, blood pressure 113/41, pulse ox 99% on room air. GENERAL APPEARANCE: Well built; BMI 38.1. Lying in bed, uncomfortable-appearing. EYES: Pupils equal. Conjunctivae normal. HEENT: External appearance of nose and ears normal. Oral cavity normal. NECK: JVD not raised. Mass not palpable. RESPIRATORY: Effort increased. LUNGS: Decreased breath sounds. Some crackles. CARDIOVASCULAR: Heart sounds irregular. Minimal edema. ABDOMEN: Soft, non-tender. Liver and spleen not palpable. LYMPHATIC: No lymph node palpable in neck or axillae. PSYCHIATRY: Alert and oriented x3. Very anxious-appearing. NEUROLOGICAL: Pupils equal. Cranial nerves grossly intact. Power and sensation grossly intact. MUSCULOSKELETAL: Evidence of severe osteoarthritis, especially in the hands and knees. INVESTIGATIONS: White count 18.5, hemoglobin 10.5, platelets 493. Potassium 3.9. BUN and creatinine normal. Troponin less than 0.012 x2. TSH is 1.0. CT scan of the abdomen, chest and pelvis nonspecific. Thoracolumbar spine CT shows lumbar stenosis at L3-L5 region. EKG tracing, personally reviewed by me, shows atrial fibrillation with a ventricular rate about 120. Chest x-ray film, personally reviewed by me, shows some pulmonary edema with some cardiomegaly. ASSESSMENT: 1. Persistent atrial fibrillation with rapid ventricular rate on presentation. 2. Acute congestive heart failure; ejection fraction not known; possibly also precipitated by atrial fibrillation. 3. Obesity; body mass index 38.1. 4. Medical debility. 5. Chronic gait dysfunction. Uses a walker. 6. Diabetes mellitus, type 2, on oral hypoglycemic. 7. Anxiety, uncontrolled. 8. Lumbar stenosis, symptomatic with radiculopathy. 9. Primary osteoarthritis in multiple joints. PLAN: I had a very lengthy discussion with the patient and family members that some medication will help, but there is no quick fix for all of her problems, and some of these are chronic. Will do the following: Will consult Dr. Fischer from [facility], to whom patient is known. Will add baclofen for muscle spasms. Patient did get IV Lasix for the CHF and patient is also on Eliquis for anticoagulation. Cardiology also did increase patient's Lopressor, which is now 100 mg b.i.d. Accu-Cheks will be followed. I did also suggest to the patient, her and other family members that the patient may need long-term care. Planning may include assisted living or getting more help at home. MIGUEL / MEL: [id number] /
[2019-04-04] MEDS: ACETAMINOPHEN TAB 500 MG TAB PO SCH ×7 (00:17→23:25)
[2019-04-04] MEDS: HYDROcodone/APAP 10-325MG 1 EACH TAB PO PRN ×3 (00:18→14:29)
[2019-04-04 05:54] LABS: Glucose,Whole Blood 155 mg/dL (75-99)
[2019-04-04] MEDS: metFORMIN 500 MG TAB PO SCH ×2 (06:21→17:13)
[2019-04-04 06:47] LABS: Cholesterol 103 mg/dL (<200); HDL Cholesterol 42 mg/dL (40-60); LDL Cholesterol,Calculated 44 mg/dL (0-99); Triglycerides 87 mg/dL (<150)
[2019-04-04] MEDS: GLIMEPIRIDE 2 MG TAB PO SCH ×2 (08:51→20:23)
[2019-04-04] MEDS: METOPROLOL TARTRATE 50 MG TAB PO SCH ×2 (08:51→20:22)
[2019-04-04] MEDS: BACLOFEN 10 MG TAB PO SCH ×4 (08:52→20:23)
[2019-04-04] MEDS: APIXABAN 2.5 MG TABLET PO SCH ×2 (08:52→20:23)
[2019-04-04] MEDS: FUROSEMIDE 40 MG TAB PO SCH ×2 (08:55→20:12)
[2019-04-04] MEDS: DULoxetine HCL 30 MG CAPSULE.DR PO SCH (08:55)
[2019-04-04] MEDS: LOSARTAN 25 MG TAB PO SCH (13:19)
--- NOTE | 2019-04-04 14:01 | P.PN ---
Subjective Progress Note Date: 04/04/19 This is a 78-year-old female with known history of hypertension, diabetes, hyperlipidemia, obesity, who presents to the hospital on this occasion with symptoms of severe pain in her legs and arms, she's also complaining of significant weakness. According to the patient, she's been dealing with this for approximately 3 years and is becoming quite frustrated that she's not getting any relief of symptoms. In April 2017 she was admitted here with a urinary tract infection, cardiology was consulted at that time because the patient was also noted to be in atrial fibrillation and had an element of congestive heart failure on that admission. History was obtained from the patient and her , difficult to obtain an accurate history really from either of them. According to the , she has followed with a psychiatry teacher in the office on 2 separate occasions since her admission here in 2016, he is unsure of who she has seen at that time. She did have an echocardiogram with Doppler study performed in April 2017 which revealed a normal left ventricular systolic function. Cardiology consultation was requested on this admission because of atrial fibrillation. Her blood pressure on admission here was 113/40 with a heart rate of 120, 99% on room air. White blood cell count is elevated at 18.5, hemoglobin 10.5, platelet count 493. Sodium 139, potassium 3.9, BUN 16 and creatinine 0.7. C-reactive protein 161.8, troponins negative 2, urinalysis negative, no BNP level was obtained. A CAT scan of the chest abdomen and pelvis was performed which did not reveal any acute intrathoracic findings. Fat stranding along the left anterior abdominal wall subcutaneous tissue without any underlying hematoma. Possibly area of trauma or inflammation. Ossified uterine fibroids. CAT scan of the spine did not reveal any acute fracture. Moderate to severe spinal cord stenosis at L3 to 4 and L4 to 5 secondary to degenerative disc disease, recommend correlation with MRI of the spine. At the time of my examination, patient still complains of persistent pain in her bilateral legs an d arms, generally feels extremely weak. She denies any overt shortness of breath, but does have swelling in her lower extremities as well as some areas of erythema noted. Her EKG on presentation here shows atrial fibrillation with a rapid ventricular response and she is currently on IV Cardizem drip at this time. She takes Eliquis for anticoagulation. 04/04/2019 Patient was seen and examined today, overall she does state that she's feeling somewhat better. Her blood pressure 124/74 with a heart rate in the 90s, 96% on room air. Echocardiogram with Doppler study remains pending. Objective - Vital Signs Vital signs: Vital Signs Temp 98.2 F 04/04/19 08:00 Pulse 117 H 04/04/19 08:00 Resp 16 04/04/19 08:00 BP 125/74 04/04/19 08:00 Pulse Ox 96 04/04/19 08:00 Intake & Output 04/03/19 04/04/19 04/04/19 18:59 06:59 18:59 Intake Total 480 330 240 Output Total 150 550 Balance 330 -220 240 Weight 88.3 kg Intake: Oral 480 330 240 Output: Urine 150 550 Other: Voiding Method Bedside Commode Bedside Commode Bedpan # Voids 1 1 # Bowel Movements 1 - Exam PHYSICAL EXAMINATION: GENERAL: 88-year-old female, complaining of generalized aches and pains at the time of my examination HEENT: Head is atraumatic, normocephalic. Pupils equal, round. Sclera anicteric. Conjunctiva are clear. Mucous membranes of the mouth are moist. Neck is supple. There is elevated jugular venous pressure. No carotid bruit is heard. HEART EXAMINATION: Heart S1 and S2 irregularly irregular systolic murmur is heard CHEST EXAMINATION: Lungs reveal mild diminished air entry to the left posteriorly ABDOMEN: Soft, obese, nontender. Bowel sounds are heard. No organomegaly noted. EXTREMITIES:[ 1+ peripheral pulses with 1-2+ evidence of peripheral edema and areas of erythema and chronic venous stasis noted NEUROLOGIC patient is awake, alert and oriented 2 . - Labs CBC & Chem 7: 04/02/19 23:25 04/02/19 23:25 Labs: Abnormal Lab Results - Last 24 Hours (Table) 04/03/19 04/03/19 04/04/19 Range/Units 16:52 21:02 05:52 POC Glucose (mg/dL) 149 H 226 H 155 H (75-99) mg/dL Microbiology - Last 24 Hours (Table) 04/03/19 04:01 Blood Culture - Preliminary Blood No Growth after 24 hours Assessment and Plan Plan: Assessment and plan #1 atrial fibrillation with rapid ventricular response, chronic persistent, on Eliquis for anticoagulation #2 Bilateral leg, back and arm pain, with associated weakness, C-reactive protein 161 #3 hypertension #4 diabetes #5 hyperlipidemia #6 obesity Plan We will continue current dose of beta ramses and add Cozaar 12.5 mg daily to her medication regime. We will review the echocardiogram with Doppler study. DNP note has been reviewed, I agree with a documented findings and plan of care. Patient was seen and examined.
[2019-04-04 17:15] LABS: Glucose,Whole Blood 249 mg/dL (75-99)
--- NOTE | 2019-04-04 18:35 | P.CN ---
Psychiatric Consult - . Consult date: 04/04/19 Consult:: 04/04/19 18:26 Identification: Patient is a 78-year-old female was brought into the emergency room with reports of increasing pain over the last week and stated it was everywhere. Reason for Consult: Anxiety and depression History of Present Illness: Patient is chart was reviewed and the patient was interviewed in her room her and sister were present during the interview. Patient states that she had increasing pain over the last week after she ran out of her opiate pain medications and stated that the pain became burning and went everywhere and she began feeling weaker and weaker. Patient states that she was able to get up at home in the past and ambulate with a walker but was unable to do this and her concurred. Patient states that she used to be able to get in and out of the bathtub, was able to walk to the car without using the walker and has become increasingly weak. Patient's states that the day that they called for EMS the patient was unable to get out of bed. Patient states that she had been sleeping and eating at home and denied any crying spells. Patient states that she feels hopeless about her pain as she has become increasingly weak and now needs assistance to do things. Patient states the pain has still not been well controlled and she complained about pain on her tailbone and described it as a burning pain. Patient is frustrated with the inability to control her pain, her increasing weakness and inability to do what she was doing before. Patient denies any psychiatric treatment in the past and states that she is never received any psychiatric medications. Patient does not endorse a history of any psychotic symptoms no depressive symptoms anxiety symptoms or manic symptoms. Patient has no history of suicidal ideation or suicide attempts. Patient does not endorse any OCD symptoms. Patient states that she was able to do some cooking, cleaning and laundry at home and get around the home with a walker as their home is on one level. Patient states that she currently is unable to do anything other than lie in bed. Past Psychiatric History: Patient has no history of prior treatment Past Medical/Surgical History: Patient has a history of diabetes mellitus, hypertension, atrial fibrillation, congestive heart failure and lumbar stenosis she states that she is status post cataract surgery Family History: No history Social History: Patient was born and raised in [place] both of her parents are she has 2 surviving brothers 2 surviving sisters and 1 sister. 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 She and her have been for 57 years and they have no children. Patient was able to ambulate around her house with a walker, was able to care for her ADLs without assistance at home and was doing some cooking and cleaning and laundry at home. Substance Use History: Patient has no history of drug or alcohol abuse Legal History: None Mental status: Appearance/Attitude: Patient is lying in a hospital bed, in some distress complaining of a burning pain on her tailbone, kept her eyes closed during most of the interview and was cooperative Behavior: Patient did not exhibit any psychomotor agitation or retardation Speech/Language: Patient's speech was spontaneous of normal volume and rhythm and she was coherent Thought Process: Patient was goal-directed there is no evidence of loose association or flight of ideas Thought Content: Patient denied any auditory or visual hallucinations no delusions or paranoid ideation were elicited. Patient is frustrated and feels hopeless about the inability to get her pain under control. She is also frustr ated with the increasing weakness that she has been experiencing and her inability to do activities that she was doing on her own without assistance in the past. Patient states that she had been sleeping fairly well at home and her appetite was good. Suicidal/Homicidal Ideation: Patient denies any current suicidal or homicidal ideation Sensorium/Cognition: Patient is alert and oriented to person, place, and time and her recent and remote memory grossly intact Mood/Affect: Patient's mood is irritable and her affect is appropriate to her mood Insight/Judgment: Patient's insight and judgment are intact Assessment: Patient has no prior history of psychiatric treatment and does not endorse any manic, psychotic or anxiety symptoms, patient is hopeless about her situation due to the inability to get her pain under control her increasing weakness and inability to perform the activities that she was doing at home. Patient states that she ran out of her opiate pain medication and for one week and this is the time frame in which her pain increased she became increasingly weaker and eventually presented to the emergency room due to the inability of her to assist her in even getting out of bed. Patient's feelings of hopelessness and frustration as well as irritability are secondary to her pain. Diagnosis: Unspecified depressive disorder Plan: Patient is already been started on Cymbalta 30 mg in the morning that is an antidepressant that is used for pain treatment as well as to treat depression and anxiety. I would agree with this plan of care and do a very slow titration if the patient is having a good response to this medication. Patient does not require any inpatient psychiatric treatment. I will sign off the case if there are any further questions or concerns please don't hesitate to contact me
--- NOTE | 2019-04-04 19:15 | ECHOF ---
Referral Reason:afib MEASUREMENTS -------- HEIGHT: 152.4 cm WEIGHT: 88.5 kg BP: 111/56 RVIDd: 3.1 cm (< 3.3) IVSd: 1.1 cm (0.6 - 1.1) LVIDd: 4.6 cm (3.9 - 5.3) LVPWd: 1.1 cm (0.6 - 1.1) IVSs: 1.4 cm LVIDs: 3.6 cm LVPWs: 1.3 cm LA Diam: 3.8 cm (2.7 - 3.8) Ao Diam: 3.0 cm (2.0 - 3.7) AV Cusp: 1.7 cm (1.5 - 2.6) MV EXCURSION: 14.273 mm (> 18.000) MV EF SLOPE: 92 mm/s (70 - 150) EPSS: 0.6 cm AV maxP.13 mmHg AV meanP.40 mmHg RAP: 5.00 mmHg RVSP: 39.69 mmHg FINDINGS -------- Atrial fibrillation. This was a technically adequate study. The left ventricular size is normal. There is borderline concentric left ventricular hypertrophy. Overall left ventricular systolic function is normal with, an EF between 60 - 65 %. The right ventricle is normal in size. The left atrium is moderately dilated. The right atrium is normal in size. Interatrial and interventricular septum intact. There is mild aortic valve sclerosis. There is mild aortic stenosis present. Peak/mean gradient a cross the Aortic Valve is 13.13mmHg / 6.40mmHg. The mitral valve leaflets are mildly thickened. Moderate mitral annular calcification present. Mild tricuspid regurgitation present. There is mild pulmonary hypertension. The right ventricular systolic pressure, as measured by Doppler, is 39.69mmHg. Trace/mild (physiologic) pulmonic regurgitation. The aortic root size is normal. Normal inferior vena cava with normal inspiratory collapse consistent with estimated right atrial pre ssure of 5 mmHg. There is no pericardial effusion. CONCLUSIONS -------- 1. Atrial fibrillation. 2. This was a technically adequate study. 3. The left ventricular size is normal. 4. There is borderline concentric left ventricular hypertrophy. 5. Overall left ventricular systolic function is normal with, an EF between 60 - 65 %. 6. The right ventricle is normal in size. 7. The left atrium is moderately dilated. 8. The right atrium is normal in size. 9. Interatrial and interventricular septum intact. 10. There is mild aortic valve sclerosis. 11. There is mild aortic stenosis present. 12. Peak/mean gradient across the Aortic Valve is 13.13mmHg / 6.40mmHg. 13. The mitral valve leaflets are mildly thickened. 14. Moderate mitral annular calcification present. 15. Mild tricuspid regurgitation present. 16. There is mild pulmonary hypertension. 17. The right ventricular systolic pressure, as measured by Doppler, is 39.69mmHg. 18. Trace/mild (physiologic) pulmonic regurgitation. 19. The aortic root size is normal. 20. Normal inferior vena cava with normal inspiratory collapse consistent with estimated right atrial pressure of 5 mmHg. 21. There is no pericardial effusion. MRI ASSISTANT: Marcelina Valdez RDCS
[2019-04-04] MEDS: ATORVASTATIN 40 MG TAB PO SCH (20:24)
[2019-04-04] MEDS ORDERED: BACLOFEN 10 MG TAB PO PRN (20:54)
--- NOTE | 2019-04-04 23:29 | PN ---
PROGRESS NOTE DATE OF SERVICE: 04/04/2019 PRESENTING COMPLAINT: Tired. INTERVAL HISTORY: This patient presented with atrial fibrillation and what she describes with pain all over. The patient was seen by Dr. Fischer, going to start the patient on Cymbalta both for pain and maybe an element of depression. The patient had been offered lower back surgery in the past. The patient's Cardizem drip was stopped this morning. Heart rate ( ) has been getting better. Patient looks more restful. Breathing is more stable. Patient also seen by Psychiatry. Agree to continue with Cymbalta. REVIEW OF SYSTEMS: Done for constitutional, cardiovascular, GI, pulmonary, musculoskeletal and findings as above. CURRENT MEDICATIONS: Reviewed that include: 1. Eliquis 2.5 b.i.d. 2. Baclofen 5 mg q.i.d. 3. Cymbalta 30 mg a day. 4. Lasix p.o. 5. Lopressor 100 mg t.i.d. EXAMINATION: Temperature 98.3, pulse 74, respirations 16, blood pressure 102/66, pulse ox 92% on room air. GENERAL APPEARANCE: Lying in bed, more restful. EYES: Pupils equal. Conjunctivae normal. NECK: JVD not raised. Mass not palpable. Respiratory effort normal. LUNGS: Decreased breath sounds. CARDIOVASCULAR: Heart sounds irregular. Minimal edema. ABDOMEN: Soft, nontender. Liver and spleen not palpable. PSYCHIATRY: Answering simple questions. INVESTIGATIONS: Accu-Cheks are noted. ASSESSMENT: 1. Persistent atrial fibrillation with rapid ventricular rate on presentation, now better controlled this morning. 2. Acute congestive heart failure exacerbation from diastolic dysfunction, EF 60-65% and precipitated by atrial fibrillation. 3. Obesity; BMI 38.1. 4. Medical debility. 5. Chronic gait dysfunction, uses a walker. 6. Diabetes mellitus type 2 on oral hypoglycemic. 7. Lumbar stenosis symptomatic with radiculopathy. 8. Primary osteoarthritis multiple joints. 9. Gait dysfunction, chronic. PLAN: Continue current medication and treatment plan. Hoping patient can be discharged by tomorrow. The patient and family were suggested to find help at home or look for a more supervised setting. MMODL / IJN: [id number] /
[2019-04-05] MEDS: HYDROcodone/APAP 10-325MG 1 EACH TAB PO PRN ×2 (00:27→08:25)
[2019-04-05] MEDS: ACETAMINOPHEN TAB 500 MG TAB PO SCH ×4 (04:57→17:33)
[2019-04-05 05:35] VITALS: RESP 18
[2019-04-05 06:14] LABS: Glucose,Whole Blood 194 mg/dL (75-99)
[2019-04-05] MEDS: metFORMIN 500 MG TAB PO SCH ×2 (06:33→17:33)
[2019-04-05] MEDS: METOPROLOL TARTRATE 50 MG TAB PO SCH (08:24)
[2019-04-05] MEDS: GLIMEPIRIDE 2 MG TAB PO SCH (08:24)
[2019-04-05] MEDS: DULoxetine HCL 30 MG CAPSULE.DR PO SCH (08:24)
[2019-04-05] MEDS: APIXABAN 2.5 MG TABLET PO SCH (08:24)
[2019-04-05] MEDS: LOSARTAN 25 MG TAB PO SCH (08:24)
[2019-04-05] MEDS: FUROSEMIDE 40 MG TAB PO SCH ×2 (08:24→17:33)
[2019-04-05 11:13] LABS: Glucose,Whole Blood 198 mg/dL (75-99)
[2019-04-05 12:28] VITALS: BP 129/67; PULSE 97; TEMP 97.6
[2019-04-05 17:13] LABS: Glucose,Whole Blood 177 mg/dL (75-99)
== END 2019-04-05 19:11 | disposition home or self-care (01) | DRG 308 ==
LOC: EC 21:57 → 3SCARD 04-03 02:44
PROVIDERS: ADMIT Hospitalist; ATTEND Hospitalist
DX: I48.1 Persistent atrial fibrillation (principal); I50.33 Acute on chronic diastolic (congestive) heart failure; M47.16 Other spondylosis with myelopathy, lumbar region; I11.0 Hypertensive heart disease with heart failure; E66.9 Obesity, unspecified; R53.81 Other malaise; M17.0 Bilateral primary osteoarthritis of knee; M19.042 Primary osteoarthritis, left hand; M19.041 Primary osteoarthritis, right hand; F41.9 Anxiety disorder, unspecified; E11.40 Type 2 diabetes mellitus with diabetic neuropathy, unspecified; F32.9 Major depressive disorder, single episode, unspecified; M47.26 Other spondylosis with radiculopathy, lumbar region; M48.062 Spinal stenosis, lumbar region with neurogenic claudication; D25.9 Leiomyoma of uterus, unspecified; M51.16 Intervertebral disc disorders with radiculopathy, lumbar region; F45.41 Pain disorder exclusively related to psychological factors; E78.5 Hyperlipidemia, unspecified; Z68.38 Body mass index [BMI] 38.0-38.9, adult; Z87.440 Personal history of urinary (tract) infections; Z79.01 Long term (current) use of anticoagulants; Z79.84 Long term (current) use of oral hypoglycemic drugs; Z79.899 Other long term (current) drug therapy; Z88.6 Allergy status to analgesic agent; Z98.49 Cataract extraction status, unspecified eye
CPT/HCPCS: 36415; 71046; 71260; 72129; 72132; 74177; 80053; 80061; 80162; 81003; 83880; 84443; 84484; 85025; 85652; 86140; 87040; 93005; 93306; 96365; 96375; 96376; 99285

== ENCOUNTER 2019-04-05 19:33 | Inpatient (IN) | payer MEDICARE, BC ==
[2019-04-05 23:30] LABS: Amorphous Sediment,Urine Rare /hpf; Appearance,Urine Cloudy (Clear); Bilirubin,Urine Negative (Negative); Blood,Urine Negative (Negative); Color,Urine Light Yellow; Glucose,Urine (UA) Negative (Negative); Hyaline Casts,Urine 96 /lpf (0-2); Ketones,Urine Negative (Negative); Leukocyte Esterase,Urine Negative (Negative); Mucus,Urine Rare /hpf; Nitrite,Urine Negative (Negative); Protein,Urine Negative (Negative); RBC,Urine 4 /hpf (0-5); Squamous Epithelial Cell,Urine 2 /hpf (0-4); Urobilinogen,Urine <2.0 mg/dL (<2.0)
[2019-04-05 23:38] LABS: Albumin 3.8 g/dL (3.5-5.0); Calcium 9.8 mg/dL (8.4-10.2); Magnesium 1.9 mg/dL (1.6-2.3); Potassium 4.3 mmol/L (3.5-5.1); Total Bilirubin 0.6 mg/dL (0.2-1.3); Total Protein 7.4 g/dL (6.3-8.2)
[2019-04-05 23:42] LABS: Basophils % (A) 0 %; Eosinophils # (A) 0.1 k/uL (0-0.7); Eosinophils % (A) 1 %; Hypochromasia Slight; Lymphocytes # (A) 1.7 k/uL (1.0-4.8); Lymphocytes % (A) 15 %; MCH 27.9 pg (25.0-35.0); MCHC 31.3 g/dL (31.0-37.0); MCV 89.2 fL (80.0-100.0); Mean Platelet Volume 6.9; Monocytes # (A) 0.6 k/uL (0-1.0); Monocytes % (A) 5 %; Neutrophils # (A) 8.9 k/uL (1.3-7.7); Neutrophils % (A) 78 %; Platelet Count 469 k/uL (150-450); RBC 3.93 m/uL (3.80-5.40); RDW 13.3 % (11.5-15.5); WBC 11.5 k/uL (3.8-10.6)
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
[2019-04-06] MEDS ORDERED: SODIUM CHLORIDE 0.9% 500 ML 500 ML IV STA (01:32)
[2019-04-06] MEDS ORDERED: NALOXONE 0.4 MG/ML 1 ML VIAL IV PRN (01:32)
[2019-04-06] MEDS: SODIUM CHLORIDE 0.9% 1,000 ML IV SCH ×2 (01:54→12:37)
[2019-04-06] MEDS ORDERED: HYDROcodone/APAP 7.5-325MG 1 EACH TAB PO ONE (01:57)
[2019-04-06 07:31] LABS: Glucose,Whole Blood 116 mg/dL (75-99)
[2019-04-06] MEDS: INSULIN ASPART (NovoLOG) 100 UNIT/ML VIAL SQ SCH ×4 (07:34→21:29)
[2019-04-06 11:55] LABS: Glucose,Whole Blood 138 mg/dL (75-99)
[2019-04-06] MEDS ORDERED: NITROGLYCERIN SL TABS 0.4 MG TAB SUBLINGUAL PRN (13:31)
[2019-04-06] MEDS: HYDROcodone/APAP 10-325MG 1 EACH TAB PO PRN ×2 (15:17→21:50)
[2019-04-06] MEDS: FUROSEMIDE 40 MG TAB PO SCH (15:17)
[2019-04-06 17:37] LABS: Glucose,Whole Blood 186 mg/dL (75-99)
[2019-04-06] MEDS: metFORMIN 500 MG TAB PO SCH (18:13)
[2019-04-06 20:53] LABS: Glucose,Whole Blood 122 mg/dL (75-99)
[2019-04-06] MEDS: APIXABAN 2.5 MG TABLET PO SCH (21:49)
[2019-04-06] MEDS: METOPROLOL TARTRATE 50 MG TAB PO SCH (21:50)
[2019-04-06] MEDS: GLIMEPIRIDE 2 MG TAB PO SCH (21:50)
[2019-04-06] MEDS: ATORVASTATIN 40 MG TAB PO SCH (21:50)
[2019-04-06] MEDS: BACLOFEN 10 MG TAB PO PRN (23:01)
--- NOTE | 2019-04-07 00:05 | HP ---
HISTORY AND PHYSICAL DATE OF ADMISSION: April 06, 2019. DATE OF SERVICE: April 06, 2019. PRESENTING COMPLAINT: Unable to get up. HISTORY OF PRESENTING COMPLAINT: This is a 78-year-old patient who was discharged from home yesterday. Patient initially presented on April 03, 2019. Patient follows with Dr. Dewitt and was following with Dr. Bowen previously. Last admission, patient in the past has had extensive workup for pain including that with Dr. Bowen, Dr. Dewitt, also the [facility] including Pain Specialist. Patient activity really dwindled. Patient was advised to go to rehab several times but the patient insisted on going home. When patient got home, the patient felt weak, went down on her legs and the unable to get up and EMS was called out. Otherwise, no chest pain, palpitation. Otherwise, patient at the baseline. Has been tolerating a diet. Patient last admission also had atrial fibrillation and CHF. REVIEW OF SYSTEMS: CONSTITUTIONAL: Tired. HEENT: None. RESPIRATORY: None. CARDIOVASCULAR: None. GASTROINTESTINAL: None. GENITOURINARY: None. MUSCULOSKELETAL: Pain in all over the body. DERMATOLOGICAL, HEMATOLOGIC, LYMPHATICS: None. PSYCHIATRY: Some anxiety. NEUROLOGICAL: Numbness and tingling in the feet. PAST MEDICAL HISTORY: Past medical history of persistent atrial fibrillation, congestive heart failure from diastolic dysfunction, obesity, chronic gait dysfunction, diabetes mellitus type 2, lumbar stenosis, symptomatic radiculopathy. Primary osteoarthritis multiple joints. Chronic gait dysfunction. PAST SURGICAL HISTORY: Uterine ablation, cataract removal. SOCIAL HISTORY: No smoking. No alcohol. . FAMILY HISTORY: Reviewed, noncontributory to medications. HOME MEDICATIONS: 1. Metformin 500 mg b.i.d. 2. Nitrostat 0.4 sublingual q.5 p.r.n. 3. Lopressor 100 mg b.i.d. 4. Cozaar 12.5 mg p.o. daily. 5. [place] 10 1 tablet q.6 p.r.n. 6. Amaryl 2 mg b.i.d. 7. Lasix 40 mg b.i.d. 8. Cymbalta 30 mg p.o. daily. 9. Baclofen 5 mg t.i.d. p.r.n. 10.Lipitor 40 mg at bedtime. 11.Eliquis 2.5 mg b.i.d. ALLERGIES: ASPIRIN. PHYSICAL EXAMINATION: VITAL SIGNS: Temperature 97.5, pulse 98, respirations 16, blood pressure 141/79, pulse ox 98% on room air. GENERAL APPEARANCE: Well built, BMI 38. Propped up in bed, awake tired-appearing. EYES: Conjunctivae normal. NECK: JVD not raised. Mass not palpable. RESPIRATORY: Effort normal. LUNGS: Decreased breath sounds. CARDIOVASCULAR: Heart sounds irregular. No edema. ABDOMEN: Soft, nontender. Liver and spleen not palpable. PSYCHIATRY: Alert and oriented x3. Mood and affect normal. NEUROLOGICAL: Pupils equal. Cranial nerves grossly intact. Power and sensation grossly intact. MUSCULOSKELETAL: Evidence of severe osteoarthritis, especially in the hands and knees. INVESTIGATIONS: White count 11.5, hemoglobin 11, potassium 4.3, BUN 24, creatinine 0.79. EKG tracing personally reviewed by me shows atrial fibrillation, rate controlled at about 91. ASSESSMENT: 1. Persistent atrial fibrillation, rate controlled. 2. Chronic congestive heart failure from diastolic dysfunction. EF 60-65 percent. 3. Obesity; BMI 38.1. 4. Medical debility leading to fall, present on admission. 5. Chronic gait dysfunction. Uses a walker. 6. Diabetes mellitus type 2 on oral hypoglycemic. 7. Lumbar stenosis symptomatic with radiculopathy. 8. Primary osteoarthritis multiple joints. PLAN: I had a very lengthy talk with the patient's . has been agreeable as last time. The patient also has been reminded that she was told when she left that she will be better with rehab then going home. The patient insisted on going home. Now she knows the importance of the same and would like to go to rehab. senior contracts manager and healthcare social worker is involved. Home medications resumed. Care was discussed with the patient and . Copy to Dr. Dewitt. MMJOHNYL / IJN: [id number] /
[2019-04-07] MEDS: HYDROcodone/APAP 10-325MG 1 EACH TAB PO PRN ×3 (05:19→22:20)
[2019-04-07 07:49] LABS: Glucose,Whole Blood 145 mg/dL (75-99)
[2019-04-07] MEDS: metFORMIN 500 MG TAB PO SCH ×2 (08:09→17:11)
[2019-04-07] MEDS: FUROSEMIDE 40 MG TAB PO SCH ×2 (08:09→17:11)
[2019-04-07] MEDS: APIXABAN 2.5 MG TABLET PO SCH ×2 (08:09→22:19)
[2019-04-07] MEDS: DULoxetine HCL 30 MG CAPSULE.DR PO SCH (08:09)
[2019-04-07] MEDS: INSULIN ASPART (NovoLOG) 100 UNIT/ML VIAL SQ SCH ×4 (08:09→22:21)
[2019-04-07] MEDS: LOSARTAN 25 MG TAB PO SCH (08:10)
[2019-04-07] MEDS: METOPROLOL TARTRATE 50 MG TAB PO SCH ×2 (08:10→22:19)
[2019-04-07] MEDS: GLIMEPIRIDE 2 MG TAB PO SCH ×2 (09:29→22:31)
[2019-04-07] MEDS: BACLOFEN 10 MG TAB PO PRN ×2 (09:45→22:20)
[2019-04-07 11:28] LABS: Glucose,Whole Blood 130 mg/dL (75-99)
[2019-04-07 17:05] LABS: Glucose,Whole Blood 157 mg/dL (75-99)
[2019-04-07 20:40] LABS: Glucose,Whole Blood 131 mg/dL (75-99)
[2019-04-07] MEDS: ATORVASTATIN 40 MG TAB PO SCH (22:20)
--- NOTE | 2019-04-08 06:05 | PN ---
PROGRESS NOTE DATE OF SERVICE: 04/07/2019 PRESENTING COMPLAINT: Tired. INTERVAL HISTORY: This patient presented after not being able to get up at home after she was discharged from the hospital. Doing better, sitting up, tolerating a diet. Patient was seen by me on 04/07/2019. Otherwise, tolerating a diet. Overall pain is better. REVIEW OF SYSTEMS: Done for constitutional, cardiovascular, GI, pulmonary; relevant findings as above. CURRENT MEDICATIONS: Current medications are reviewed. PHYSICAL EXAMINATION: On examination, temperature 97.6, pulse 78, respiration 20, blood pressure 106/61, pulse ox 96% on room air. GENERAL APPEARANCE: Sitting on the edge of the bed, comfortable EYES: Pupils equal. Conjunctivae normal. NECK: JVD not raised. Mass not palpable. RESPIRATORY: Effort normal. LUNGS: Decreased breath sounds. CARDIOVASCULAR: Heart sounds irregular. No edema. ABDOMEN: Soft, nontender. Liver and spleen not palpable. PSYCHIATRY: , awake, anxious appearing. INVESTIGATIONS: Accu-Cheks are noted. ASSESSMENT: 1. Persistent atrial fibrillation, rate controlled. 2. Chronic congestive heart failure from diastolic dysfunction, ejection fraction 60% to 65%. 3. Obesity; body mass index 38. 4. Medical debility leading to fall, present on admission. 5. Chronic gait dysfunction, uses a walker. 6. Diabetes mellitus type 2 on oral hypoglycemic. 7. Lumbar stenosis symptomatic with radiculopathy. 8. Primary osteoarthritis multiple joints. PLAN: Patient has several insurance questions. Did discuss with the elementary school social worker and briefcase sewer. Patient will be awaiting placement to inpatient rehab. MMODL / IJN: [id number] /
[2019-04-08 07:30] LABS: Glucose,Whole Blood 126 mg/dL (75-99)
[2019-04-08] MEDS: INSULIN ASPART (NovoLOG) 100 UNIT/ML VIAL SQ SCH ×4 (08:01→20:15)
[2019-04-08] MEDS: APIXABAN 2.5 MG TABLET PO SCH ×2 (08:08→20:12)
[2019-04-08] MEDS: metFORMIN 500 MG TAB PO SCH ×2 (08:08→17:33)
[2019-04-08] MEDS: FUROSEMIDE 40 MG TAB PO SCH ×2 (08:08→15:25)
[2019-04-08] MEDS: METOPROLOL TARTRATE 50 MG TAB PO SCH ×2 (08:08→20:12)
[2019-04-08] MEDS: DULoxetine HCL 30 MG CAPSULE.DR PO SCH (08:08)
[2019-04-08] MEDS: GLIMEPIRIDE 2 MG TAB PO SCH ×2 (08:09→20:15)
[2019-04-08] MEDS: BACLOFEN 10 MG TAB PO PRN ×2 (08:09→20:12)
[2019-04-08] MEDS: HYDROcodone/APAP 10-325MG 1 EACH TAB PO PRN ×3 (08:09→20:12)
[2019-04-08] MEDS: LOSARTAN 25 MG TAB PO SCH (08:09)
[2019-04-08 12:30] LABS: Glucose,Whole Blood 149 mg/dL (75-99)
[2019-04-08 16:56] LABS: Glucose,Whole Blood 141 mg/dL (75-99)
[2019-04-08 20:11] LABS: Glucose,Whole Blood 119 mg/dL (75-99)
[2019-04-08] MEDS: ATORVASTATIN 40 MG TAB PO SCH (20:12)
[2019-04-09] MEDS: HYDROcodone/APAP 10-325MG 1 EACH TAB PO PRN ×4 (01:47→19:53)
--- NOTE | 2019-04-09 06:35 | PN ---
PROGRESS NOTE DATE OF SERVICE: 04/08/2019 PRESENTING COMPLAINT: Tired. INTERVAL HISTORY: Patient admitted after patient not able to get up after she was discharged from the hospital, now agreeable to inpatient rehab. This will happen on Monday. Otherwise, patient is stable, tolerating a diet. REVIEW OF SYSTEMS: Done for constitutional, cardiovascular, GI, pulmonary; relevant findings as above. CURRENT MEDICATIONS: Current medications are reviewed. PHYSICAL EXAMINATION: On examination, temperature 98.5, pulse 82, respiration 16, blood pressure 130/74, pulse ox 97% on room air. GENERAL APPEARANCE: Lying in bed, comfortable. EYES: Pupils equal. Conjunctivae normal. NECK: JVD not raised. Mass not palpable. RESPIRATORY: Effort normal. LUNGS: Decreased breath sounds. CARDIOVASCULAR: Heart sounds irregular. No edema. ABDOMEN: Soft, nontender. Liver and spleen not palpable. PSYCHIATRY: Alert and oriented x3. Mood and affect normal. INVESTIGATIONS: Accu-Cheks are noted. ASSESSMENT: 1. Persistent atrial fibrillation, rate controlled. 2. Chronic congestive heart failure from diastolic dysfunction, ejection fraction 60% to 65%. 3. Obesity; body mass index 38. 4. Medical debility leading to fall at home. 5. Chronic gait dysfunction, uses a walker. 6. Diabetes mellitus type 2 on oral hypoglycemic. 7. Lumbar stenosis symptomatic with radiculopathy. 8. Primary osteoarthritis of multiple joints. PLAN: Patient is stable. Care was discussed with her. Per cyber ops planner, patient will be going to rehab on Monday. MMJOHNYL / SELENAN: [id number] /
[2019-04-09 07:24] LABS: Glucose,Whole Blood 90 mg/dL (75-99)
[2019-04-09] MEDS: INSULIN ASPART (NovoLOG) 100 UNIT/ML VIAL SQ SCH ×4 (07:29→20:25)
[2019-04-09] MEDS: GLIMEPIRIDE 2 MG TAB PO SCH ×2 (07:43→19:54)
[2019-04-09] MEDS: DULoxetine HCL 30 MG CAPSULE.DR PO SCH (07:43)
[2019-04-09] MEDS: metFORMIN 500 MG TAB PO SCH ×2 (07:43→17:02)
[2019-04-09] MEDS: METOPROLOL TARTRATE 50 MG TAB PO SCH ×2 (07:43→19:54)
[2019-04-09] MEDS: APIXABAN 2.5 MG TABLET PO SCH ×2 (07:43→19:54)
[2019-04-09] MEDS: BACLOFEN 10 MG TAB PO PRN (07:43)
[2019-04-09] MEDS: FUROSEMIDE 40 MG TAB PO SCH ×2 (07:44→14:23)
[2019-04-09] MEDS: LOSARTAN 25 MG TAB PO SCH (07:44)
[2019-04-09 12:06] LABS: Glucose,Whole Blood 139 mg/dL (75-99)
[2019-04-09 15:29] VITALS: RESP 18
[2019-04-09 17:02] LABS: Glucose,Whole Blood 116 mg/dL (75-99)
[2019-04-09] MEDS: ATORVASTATIN 40 MG TAB PO SCH (19:54)
[2019-04-09 20:09] LABS: Glucose,Whole Blood 225 mg/dL (75-99)
[2019-04-10] MEDS: HYDROcodone/APAP 10-325MG 1 EACH TAB PO PRN ×3 (01:22→14:24)
[2019-04-10 06:14] VITALS: BP 103/65; PULSE 109; TEMP 98.5
--- NOTE | 2019-04-10 06:41 | PN ---
PROGRESS NOTE DATE OF SERVICE: 04/09/2019 PRESENTING COMPLAINT: Tired. INTERVAL HISTORY: The patient not able to get up after she is discharged from the hospital pending inpatient rehab. The patient appears far more comfortable but still complains of pain. Otherwise, tolerating a diet. No new issues. REVIEW OF SYSTEMS: Done for constitutional, cardiovascular, GI, pulmonary, relevant findings as above. CURRENT MEDICATIONS: Reviewed. PHYSICAL EXAMINATION: VITAL SIGNS: Temperature 97.7, pulse 103, respiratory 18, blood pressure 109/63, pulse ox 97% on room air. GENERAL APPEARANCE: Lying in bed, awake. EYES: Pupils are equal, conjunctivae normal. NECK: JVD not raised. Mass not palpable. RESPIRATORY: Effort normal. LUNGS: Decreased breath sounds. CARDIOVASCULAR: Heart sounds irregular. No edema. ABDOMEN: Soft, nontender. Liver and spleen not palpable. PSYCHIATRY: Awake, answering questions. INVESTIGATIONS: Accu-Cheks noted. ASSESSMENT: 1. Persistent atrial fibrillation, rate controlled. 2. Chronic congestive heart failure from diastolic dysfunction EF 60-65 percent. 3. Obesity; BMI 38. 4. Medical debility, leading to fall at home. 5. Chronic gait dysfunction, uses a walker. 6. Diabetes mellitus type 2 on oral hypoglycemic. 7. Lumbar stenosis symptomatic radiculopathy. 8. Primary osteoarthritis multiple joints. PLAN: Care was discussed with the patient. Awaiting to go to rehab that will happen on April 11, 2019 after qualifying for 3 nights. MMODL / IJN: [id number] /
[2019-04-10 07:14] LABS: Glucose,Whole Blood 69 mg/dL (75-99)
[2019-04-10 07:32] LABS: Glucose,Whole Blood 55 mg/dL (75-99)
[2019-04-10 07:32] LABS: Glucose,Whole Blood 60 mg/dL (75-99)
[2019-04-10] MEDS: INSULIN ASPART (NovoLOG) 100 UNIT/ML VIAL SQ SCH ×2 (07:33→11:59)
[2019-04-10 07:36] LABS: Glucose,Whole Blood 98 mg/dL (75-99)
[2019-04-10] MEDS: metFORMIN 500 MG TAB PO SCH (07:37)
[2019-04-10] MEDS: GLIMEPIRIDE 2 MG TAB PO SCH (07:37)
[2019-04-10] MEDS: APIXABAN 2.5 MG TABLET PO SCH (07:43)
[2019-04-10] MEDS: FUROSEMIDE 40 MG TAB PO SCH (07:43)
[2019-04-10] MEDS: METOPROLOL TARTRATE 50 MG TAB PO SCH (07:43)
[2019-04-10] MEDS: DULoxetine HCL 30 MG CAPSULE.DR PO SCH (07:44)
[2019-04-10] MEDS: LOSARTAN 25 MG TAB PO SCH (07:44)
[2019-04-10 11:58] LABS: Glucose,Whole Blood 122 mg/dL (75-99)
--- NOTE | 2019-04-10 12:32 | DS ---
DISCHARGE SUMMARY DATE OF ADMISSION: 04/06/2019 DATE OF DISCHARGE: 04/10/2019 FINAL DIAGNOSES: 1. Acute on chronic medical debility, multifactorial. 2. Persistent atrial fibrillation, rate controlled. 3. Chronic congestive heart failure from diastolic dysfunction, ejection fraction 60% to 65%. 4. Obesity; body mass index 38. 5. Medical debility leading to fall at home. 6. Chronic gait dysfunction, using a walker. 7. Diabetes mellitus type 2 on oral hypoglycemic. 8. Lumbar stenosis symptomatic with radiculopathy. 9. Primary osteoarthritis multiple joints. 10.Chronic pain syndrome, being followed by [facility]/Dr. Fischer, Dr. Lo. HOSPITAL COURSE: This patient was just discharged from the hospital, told to go to rehab, decided to go home, was unable to take care of herself, fell down, was brought back to the hospital, qualified for inpatient rehab. Patient has got chronic pain, was seen by multiple physicians in the past, especially she had seen Dr. Bowen then she switched to Dr. Dewitt. Dr. Dewitt referred her to [facility]. She was seen there by the surgeon. She was also seen by Dr. Lo and also Dr. Fischer. Dr. Fischer did see her on the last admission that is the day prior to coming this admission and recommended the current medications. She was also seen by Psychiatry who agrees with current medication. The patient seems to be always focused on the pain. Multiple discussions were held with the patient's family members including patient's and the patient herself. On last admission, patient also treated for CHF exacerbation and atrial fibrillation. Today again the care was discussed at length with the patient and her and the nurse. The patient otherwise tolerating a diet. PHYSICAL EXAMINATION: On examination, temperature 98.5, pulse 109, respiration 18, blood pressure 103/65, pulse ox 93% on room air. LUNGS: Fair entry. CARDIOVASCULAR: Heart is irregular. ABDOMEN: Soft, nontender. LABS: Hemoglobin 11. Potassium 4.3. BUN 24, creatinine 0.79. DISCHARGE MEDICATIONS: 1. Eliquis 2.5 mg b.i.d. 2. Glucophage XR 500 mg b.i.d. 3. Lipitor 40 mg q.h.s. 4. Baclofen 5 mg p.o. t.i.d. p.r.n. 5. Cymbalta 30 mg p.o. daily. 6. Lasix 40 mg p.o. b.i.d. 7. Cozaar 12.5 p.o. daily. 8. Lopressor 100 mg p.o. b.i.d. 9. Nitrostat 0.4 sublingual q.5 p.r.n. 10.Amaryl 2 mg p.o. daily. 11.[place] 10 one tablet q.6 p.r.n. 12.NovoLog per scale. If need be, patient's metformin can be increased. DISPOSITION: [facility]. Follow up with [facility]. Muniz [facility]. Follow up with Dr. Dewitt after DC from [facility]. Follow up with Dr. Anthony Fischer in 3 days. Follow up with Dr. Dedra Ponce in 1 week. LABS: CBC, BMP in 3 days. Discussion and discharge planning more than 35 minutes. MMODL / IJN: [id number] /
[2019-04-10] MEDS: BACLOFEN 10 MG TAB PO PRN (13:18)
== END 2019-04-10 15:05 | DRG 309 ==
LOC: EC 19:33 → 4SSUR 04-06 00:38 → 4MS4W 04-07 07:14 → OBSVTOIN 04-07 11:11
PROVIDERS: ADMIT Hospitalist; ATTEND Hospitalist
DX: I48.1 Persistent atrial fibrillation (principal); I50.32 Chronic diastolic (congestive) heart failure; I11.0 Hypertensive heart disease with heart failure; E11.9 Type 2 diabetes mellitus without complications; E66.9 Obesity, unspecified; E86.0 Dehydration; G89.4 Chronic pain syndrome; M19.91 Primary osteoarthritis, unspecified site; M48.061 Spinal stenosis, lumbar region without neurogenic claudication; M54.16 Radiculopathy, lumbar region; Z68.38 Body mass index [BMI] 38.0-38.9, adult; Z79.01 Long term (current) use of anticoagulants; Z79.84 Long term (current) use of oral hypoglycemic drugs; Z79.899 Other long term (current) drug therapy; Z79.891 Long term (current) use of opiate analgesic; Z88.6 Allergy status to analgesic agent; R26.9 Unspecified abnormalities of gait and mobility; Z91.81 History of falling
CPT/HCPCS: 36415; 80053; 81001; 83735; 85025; 93005; 99285

== ENCOUNTER 2019-06-26 15:23 | Emergency (ER) | payer MEDICARE, BC ==
[2019-06-26 15:40] LABS: Glucose,Whole Blood 105 mg/dL (75-99)
[2019-06-26 15:43] VITALS: BP 142/87; PULSE 88; RESP 17; TEMP 98
--- NOTE | 2019-06-26 16:14 | ED ---
General Adult HPI - General Chief complaint: Recheck/Abnormal Lab/Rx Stated complaint: hypoglycemia Time Seen by Provider: 06/26/19 15:44 Source: patient, family, EMS, RN notes reviewed Mode of arrival: EMS Limitations: no limitations - History of Present Illness Initial comments: 78-year-old female presents emergency department via EMS with complaint of hyperglycemia. Patient states that she has not eaten today. Patient did take her Inderal and metformin. Patient was found to have blood glucose of 42 was given 1 amp of necrosis by EMS symptoms have resolved. General states that she was confused and very responsive though she is at her normal baseline at this time. Patient has no other complaints at this time other than that she needs to have a bowel movement. She has no complaints of abdominal pain no focal weakness denies any chest pain or palpitations. - Related Data Home Medications Medication Instructions Recorded Confirmed metFORMIN HCL ER [Glucophage Xr] 500 mg PO BID 04/03/19 04/06/19 Previous Rx's Medication Instructions Recorded Apixaban [Eliquis] 2.5 mg PO BID tab 05/29/17 Atorvastatin [Lipitor] 40 mg PO HS #30 tab 04/05/19 Baclofen [Lioresal] 5 mg PO TID PRN #30 tab 04/05/19 DULoxetine HCL [Cymbalta] 30 mg PO DAILY #30 capsule. 04/05/19 Furosemide [Lasix] 40 mg PO BID@0900,1600 #60 tab 04/05/19 Losartan [Cozaar] 12.5 mg PO DAILY #30 tab 04/05/19 Metoprolol Tartrate [Lopressor] 100 mg PO BID #60 tab 04/05/19 Nitroglycerin Sl Tabs [Nitrostat] 0.4 mg SUBLINGUAL Q5M PRN #30 tab 04/05/19 Glimepiride [Amaryl] 2 mg PO DAILY #60 04/10/19 HYDROcodone/APAP 10-325MG [[place] 1 tab PO Q6HR PRN #12 tab 04/10/19 10-325] INSULIN ASPART (NovoLOG) [NovoLOG 0 unit SQ ACHS vial 04/10/19 (formulary)] Allergies Allergy/AdvReac Type Severity Reaction Status Date / Time aspirin AdvReac Nausea Verified 04/06/19 08:00 Review of Systems ROS Statement: Those systems with pertinent positive or pertinent negative responses have been documented in the HPI. ROS Other: All systems not noted in ROS Statement are negative. Past Medical History Past Medical History: Diabetes Mellitus, Hypertension Additional Past Medical History / Comment(s): DDD History of Any Multi-Drug Resistant Organisms: None Reported Past Surgical History: Uterine Ablation Additional Past Surgical History / Comment(s): cataracts removed Past Anesthesia/Blood Transfusion Reactions: No Reported Reaction Past Psychological History: No Psychological Hx Reported Smoking Status: Never smoker Past Alcohol Use History: None Reported Past Drug Use History: None Reported - Past Family History Mother Family Medical History: No Reported History Father Family Medical History: Unable to Obtain General Exam Limitations: no limitations General appearance: alert, in no apparent distress Head exam: Present: atraumatic, normocephalic, normal inspection Neck exam: Present: normal inspection. Absent: tenderness, meningismus, lymphadenopathy Respiratory exam: Present: normal lung sounds bilaterally. Absent: respiratory distress, wheezes, rales, rhonchi, stridor Cardiovascular Exam: Present: regular rate, normal rhythm, normal heart sounds. Absent: systolic murmur, diastolic murmur, rubs, gallop, clicks Neurological exam: Present: alert, oriented X3, CN II-XII intact, reflexes normal. Absent: motor sensory deficit Skin exam: Present: warm, dry, intact, normal color. Absent: rash Course Vital Signs 06/26/19 15:36 Temperature 98 F Pulse Rate 88 Respiratory 17 Rate Blood Pressure 142/87 O2 Sat by Pulse 99 Oximetry Medical Decision Making - Medical Decision Making 78-year-old female presents emergency department for hypoglycemia. Patient's blood sugar has stabilized at this time. Patient states that she is constipated is requesting an enema. Patient was given Therevac in emergency department. Patient will be discharged. We did discuss that she needs to eat and drink when taking her diabetic medications. - Lab Data Lab Results 06/26/19 06/26/19 Range/Units 15:38 16:33 POC Glucose (mg/dL) 105 H 97 (75-99) mg/dL POC Glu Imposer ID Cathie Moncada Kyle Disposition Clinical Impression: Hypoglycemia Disposition: HOME SELF-CARE Condition: Stable Instructions (If sedation given, give patient instructions): Hypoglycemia in a Person with Diabetes (ED) Additional Instructions: Please return to the Emergency Department if symptoms worsen or any other concerns. Is patient prescribed a controlled substance at d/c from ED?: No Referrals: Stanislaw Dewitt DO [Primary Care Provider] - 1-2 days Time of Disposition: 16:42
[2019-06-26 16:34] LABS: Glucose,Whole Blood 97 mg/dL (75-99)
[2019-06-26] MEDS ORDERED: DOCUSATE 283 MG/5 ML ENEMA RECTAL STA (16:38)
== END 2019-06-26 18:02 | disposition home or self-care (01) ==
LOC: EC 15:23
DX: E11.649 Type 2 diabetes mellitus with hypoglycemia without coma (principal); K59.00 Constipation, unspecified; Z88.6 Allergy status to analgesic agent; Z79.84 Long term (current) use of oral hypoglycemic drugs
CPT/HCPCS: 36415; 99285

== ENCOUNTER 2019-09-30 13:13 | Observation (INO) | payer MEDICARE, BC ==
--- NOTE | 2019-09-30 13:46 | ED ---
General Adult HPI - General Chief complaint: Arrhythmia/Palpitations Stated complaint: A-Fib Time Seen by Provider: 09/30/19 13:30 Source: patient, family, EMS, RN notes reviewed Mode of arrival: EMS Limitations: no limitations - History of Present Illness Initial comments: Patient is a pleasant 79-year-old female presenting to the emergency Department with atrial fibrillation. Patient was at orthopedics to have procedure done for carpal tunnel on the right. Patient states she is not clear why the procedure is done as it does not bother her. Patient denies any palpitations. No chest pain or dyspnea or new back pain. Patient does have chronic back pain that is unchanged. Patient uses a wheelchair because of this. Patient and frequently argue and fight regarding this. Patient states she is not wheelchair bound however the states that she has. 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 - Related Data Home Medications Medication Instructions Recorded Confirmed metFORMIN HCL ER [Glucophage Xr] 500 mg PO BID 04/03/19 09/30/19 DULoxetine HCL [Cymbalta] 60 mg PO DAILY 09/30/19 09/30/19 Glimepiride [Amaryl] 2 mg PO BID 09/30/19 09/30/19 Torsemide [Demadex] 10 mg PO DAILY 09/30/19 09/30/19 Previous Rx's Medication Instructions Recorded Metoprolol Tartrate [Lopressor] 100 mg PO BID #60 tab 04/05/19 Nitroglycerin Sl Tabs [Nitrostat] 0.4 mg SUBLINGUAL Q5M PRN #30 tab 04/05/19 Allergies Allergy/AdvReac Type Severity Reaction Status Date / Time aspirin AdvReac Nausea Verified 09/30/19 13:57 Review of Systems ROS Statement: Those systems with pertinent positive or pertinent negative responses have been documented in the HPI. ROS Other: All systems not noted in ROS Statement are negative. Constitutional: Denies: fever Eyes: Denies: eye pain ENT: Denies: ear pain Respiratory: Denies: cough, dyspnea Cardiovascular: Denies: chest pain, palpitations Endocrine: Denies: fatigue Gastrointestinal: Denies: abdominal pain Genitourinary: Denies: dysuria Musculoskeletal: Denies: back pain Skin: Denies: rash Neurological: Denies: headache, weakness Past Medical History Past Medical History: Atrial Fibrillation, Diabetes Mellitus, Hypertension Additional Past Medical History / Comment(s): DDD History of Any Multi-Drug Resistant Organisms: None Reported Past Surgical History: Uterine Ablation Additional Past Surgical History / Comment(s): cataracts removed Past Anesthesia/Blood Transfusion Reactions: No Reported Reaction Past Psychological History: No Psychological Hx Reported Smoking Status: Never smoker Past Alcohol Use History: None Reported Past Drug Use History: None Reported - Past Family History Mother Family Medical History: No Reported History Father Family Medical History: Unable to Obtain General Exam Limitations: no limitations General appearance: alert, in no apparent distress Head exam: Present: normocephalic Eye exam: Present: normal appearance, PERRL ENT exam: Present: mucous membranes dry Neck exam: Present: normal inspection Respiratory exam: Present: normal lung sounds bilaterally Cardiovascular Exam: Present: irregular rhythm Expanded Peripheral pulses: 2+: Radial (R), Radial (L), Dorsalis Pedis (R), Dorsalis Pedis (L) GI/Abdominal exam: Present: soft. Absent: tenderness Extremities exam: Present: normal inspection Neurological exam: Present: alert Psychiatric exam: Present: normal affect, normal mood Skin exam: Present: normal color Course Vital Signs 09/30/19 09/30/19 09/30/19 13:25 13:47 14:47 Temperature 97.8 F Pulse Rate 125 H 118 H Pulse Rate [ 125 H Fibre Technologist ] Respiratory 18 18 Rate Blood Pressure 132/103 129/82 O2 Sat by Pulse 100 96 Oximetry EKG Findings - EKG Comments: EKG Findings:: A. fib with RVR, rate 118. QRS 72. QT 312. QTC 437. Poor R- wave progression. Septal Q waves. Inferior Q waves. No acute ST change. Medical Decision Making - Medical Decision Making Patient reevaluated and unchanged. Patient updated on results and plan. Case was discussed with Dr. Morton, who will admit for Dr. Dewtit. - Lab Data Result diagrams: 09/30/19 13:36 09/30/19 13:36 Lab Results 09/30/19 09/30/19 09/30/19 Range/Units 13:36 13:36 13:36 WBC 11.3 H (3.8-10.6) k/uL RBC 4.62 (3.80-5.40) m/uL Hgb 11.9 (11.4-16.0) gm/dL Hct 38.5 (34.0-46.0) % MCV 83.2 (80.0-100.0) fL MCH 25.7 (25.0-35.0) pg MCHC 30.8 L (31.0-37.0) g/dL RDW 17.2 H (11.5-15.5) % Plt Count 356 (150-450) k/uL Neutrophils % 79 % Lymphocytes % 16 % Monocytes % 4 % Eosinophils % 0 % Basophils % 0 % Neutrophils # 8.9 H (1.3-7.7) k/uL Lymphocytes # 1.8 (1.0-4.8) k/uL Monocytes # 0.4 (0-1.0) k/uL Eosinophils # 0.0 (0-0.7) k/uL Basophils # 0.0 (0-0.2) k/uL Anisocytosis Slight PT 10.2 (9.0-12.0) sec INR 0.9 (<1.2) APTT 22.9 (22.0-30.0) sec Sodium 136 L (137-145) mmol/L Potassium 5.1 (3.5-5.1) mmol/L Chloride 99 (98-107) mmol/L Carbon Dioxide 28 (22-30) mmol/L Anion Gap 9 mmol/L BUN 23 H (7-17) mg/dL Creatinine 0.75 (0.52-1.04) mg/dL Est GFR (CKD-EPI)AfAm 88 (>60 ml/min/1.73 sqM) Est GFR (CKD-EPI)NonAf 76 (>60 ml/min/1.73 sqM) Glucose 94 (74-99) mg/dL Calcium 10.4 H (8.4-10.2) mg/dL Magnesium 1.7 (1.6-2.3) mg/dL Total Bilirubin 0.8 (0.2-1.3) mg/dL AST 21 (14-36) U/L ALT 15 (9-52) U/L Alkaline Phosphatase 166 H (38-126) U/L Troponin I (0.000-0.034) ng/mL Total Protein 6.9 (6.3-8.2) g/dL Albumin 3.6 (3.5-5.0) g/dL TSH 1.210 (0.465-4.680) mIU/L Free T4 1.79 (0.78-2.19) ng/dL Free T3 pg/mL 3.6 (2.8-5.3) pg/ml 09/30/19 Range/Units 13:36 WBC (3.8-10.6) k/uL RBC (3.80-5.40) m/uL Hgb (11.4-16.0) gm/dL Hct (34.0-46.0) % MCV (80.0-100.0) fL MCH (25.0-35.0) pg MCHC (31.0-37.0) g/dL RDW (11.5-15.5) % Plt Count (150-450) k/uL Neutrophils % % Lymphocytes % % Monocytes % % Eosinophils % % Basophils % % Neutrophils # (1.3-7.7) k/uL Lymphocytes # (1.0-4.8) k/uL Monocytes # (0-1.0) k/uL Eosinophils # (0-0.7) k/uL Basophils # (0-0.2) k/uL Anisocytosis PT (9.0-12.0) sec INR (<1.2) APTT (22.0-30.0) sec Sodium (137-145) mmol/L Potassium (3.5-5.1) mmol/L Chloride (98-107) mmol/L Carbon Dioxide (22-30) mmol/L Anion Gap mmol/L BUN (7-17) mg/dL Creatinine (0.52-1.04) mg/dL Est GFR (CKD-EPI)AfAm (>60 ml/min/1.73 sqM) Est GFR (CKD-EPI)NonAf (>60 ml/min/1.73 sqM) Glucose (74-99) mg/dL Calcium (8.4-10.2) mg/dL Magnesium (1.6-2.3) mg/dL Total Bilirubin (0.2-1.3) mg/dL AST (14-36) U/L ALT (9-52) U/L Alkaline Phosphatase (38-126) U/L Troponin I <0.012 (0.000-0.034) ng/mL Total Protein (6.3-8.2) g/dL Albumin (3.5-5.0) g/dL TSH (0.465-4.680) mIU/L Free T4 (0.78-2.19) ng/dL Free T3 pg/mL (2.8-5.3) pg/ml - Radiology Data Radiology results: image reviewed (Chest x-ray shows redemonstrated Manas megaly with small left effusion.) Critical Care Time Critical Care Time: Yes Total Critical Care Time: 31 Disposition Clinical Impression: Atrial fibrillation with RVR Disposition: ADMITTED IP TO THIS HOSP Is patient prescribed a controlled substance at d/c from ED?: No Referrals: Stanislaw Dewitt DO [Primary Care Provider] - 1-2 days Decision Time: 15:25
[2019-09-30 13:57] LABS: Anisocytosis Slight; Basophils % (A) 0 %; Eosinophils % (A) 0 %; HCT 38.5 % (34.0-46.0); HGB 11.9 gm/dL (11.4-16.0); Lymphocytes # (A) 1.8 k/uL (1.0-4.8); Lymphocytes % (A) 16 %; MCH 25.7 pg (25.0-35.0); MCHC 30.8 g/dL (31.0-37.0); MCV 83.2 fL (80.0-100.0); Mean Platelet Volume 6.1; Monocytes # (A) 0.4 k/uL (0-1.0); Monocytes % (A) 4 %; Neutrophils # (A) 8.9 k/uL (1.3-7.7); Neutrophils % (A) 79 %; Platelet Count 356 k/uL (150-450); RBC 4.62 m/uL (3.80-5.40); RDW 17.2 % (11.5-15.5); WBC 11.3 k/uL (3.8-10.6)
[2019-09-30] MEDS ORDERED: DILTIAZEM 125 MG in SODIUM CHLORIDE 0.9% 100 ML IV SCH (14:00)
[2019-09-30 14:05] LABS: INR 0.9 (<1.2); Partial Thromboplastin Time 22.9 sec (22.0-30.0); Prothrombin Time 10.2 sec (9.0-12.0)
[2019-09-30 14:15] LABS: Albumin 3.6 g/dL (3.5-5.0); Calcium 10.4 mg/dL (8.4-10.2); Magnesium 1.7 mg/dL (1.6-2.3); Potassium 5.1 mmol/L (3.5-5.1); Total Bilirubin 0.8 mg/dL (0.2-1.3); Total Protein 6.9 g/dL (6.3-8.2)
--- NOTE | 2019-09-30 14:18 | XR ---
EXAMINATION TYPE: XR chest 2V DATE OF EXAM: 09/30/2019 COMPARISON: Chest x-ray and CT April 03, 2019. HISTORY: Dysrhythmia. TECHNIQUE: Frontal and lateral views of the chest are obtained. FINDINGS: There is cardiomegaly with small left pleural effusion. Right lung is clear. No suspiciou s focal airspace opacity or pneumothorax is seen bilaterally. Slightly elevated left hemidiaphragm is redemonstrated. The osseous structures are intact. IMPRESSION: Redemonstration of cardiomegaly with small left pleural effusion or fluid collection. No significant change from prior study.
[2019-09-30 14:31] LABS: T4, Free (Free Thyroxine) 1.79 ng/dL (0.78-2.19)
[2019-09-30] MEDS ORDERED: HEPARIN SODIUM,PORCINE 5,000 UNIT/ML 1 ML VIAL IV PRN (15:26)
[2019-09-30] MEDS ORDERED: HEPARIN SODIUM,PORCINE 5,000 UNIT/ML 1 ML VIAL IV ONE (15:26)
[2019-09-30] MEDS ORDERED: NITROGLYCERIN SL TABS 0.4 MG TAB SUBLINGUAL PRN ×2 (15:26→19:13)
[2019-09-30] MEDS ORDERED: ENOXAPARIN 60 MG/0.6 ML SYRINGE SQ STA (15:29)
[2019-09-30] MEDS ORDERED: HEPARIN SOD,PORK IN 0.45% NACL 25,000 UNIT in 0.45% NACL 1 250ML.BAG IV SCH (15:30)
[2019-09-30 16:51] LABS: Glucose,Whole Blood 85 mg/dL (75-99)
[2019-09-30] MEDS: INSULIN ASPART (NovoLOG) 100 UNIT/ML VIAL SQ SCH ×2 (18:20→21:15)
[2019-09-30 20:42] LABS: Glucose,Whole Blood 165 mg/dL (75-99)
[2019-09-30] MEDS: METOPROLOL TARTRATE 50 MG TAB PO SCH (21:14)
[2019-09-30] MEDS: GLIMEPIRIDE 2 MG TAB PO SCH (21:14)
[2019-09-30] MEDS: HYDROcodone/APAP 10-325MG 1 EACH TAB PO PRN (21:14)
--- NOTE | 2019-09-30 23:07 | P.HPIM ---
History of Present Illness H&P Date: 09/30/19 Chief Complaint: Uncontrolled atrial fibrillation History of presenting complaint: This is a 79-year-old patient who follows with Dr. Dewitt. Chronic stable medical conditions include congestive heart failure from diastolic dysfunction EF 60-65%, medical debility, chronic gait dysfunction uses a walker or wheelchair, diabetes mellitus type 2, lumbar stenosis with radiculopathy, primary osteoarthritis. Patient was started out to have helped surgery and patient was discovered to have atrial fibrillation with a rapid ventricular rate. Patient has known chronic A. fib. Patient has been feeling a bit dizzy A. Denies any chest pain. Admitted for the same. Review of systems: GEN.: Tired EYES: None HEENT: None NECK: None RESPIRATORY: None CARDIOVASCULAR: Heart racing GASTROINTESTINAL: None GENITOURINARY: None MUSCULOSKELETAL: Pain in many joints LYMPHATICS: None HEMATOLOGICAL: None PSYCHIATRY: Anxiety] NEUROLOGICAL: Numbness tingling in the feet Past medical history to include: Atrial fibrillation, CHF with EF 55-60%, chronic gait dysfunction, diabetes me llitus type 2, lumbar stenosis, radiculopathy, primary osteoarthritis, Social history: Lives with her . No history of smoking or alcohol Negative family history Physical examination: VITAL SIGNS: 97.8, 125, 18, 132/103, 100% room air GENERAL: BMI 31.2, laying in bed slightly anxious. EYES: Pupils equal. Conjunctiva normal. HEENT: External appearance of nose and ears normal, oral cavity grossly normal. NECK: JVD not raised; masses not palpable. HEART: Heart sounds irregular; no edema. LUNGS: Respiratory rate normal; clear to auscultation. ABDOMEN: Soft, nontender, liver spleen not palpable, no masses palpable. PSYCH: Alert and oriented x3; mood and affect anxiousl. NEUROLOGICAL: Cranial nerves grossly intact; no facial asymmetry, power and sensation grossly intact. LYMPHATICS: No lymph nodes palpable in the axilla and neck MUSCULOSKELETAL: Evidence of osteoarthritis in hands INVESTIGATIONS, reviewed in the clinical context: White count 11.3 hemoglobin 11.9 platelets 356 potassium 5.1 creatinine 0.75 EKG tracing personally reviewed by me shows atrial flutter fibrillation with a rate close to 120 Chest x-ray film-personally reviewed by me shows minimal venous prominence Assessment: -Persistent atrial fibrillation now with rapid ventricular rate uncontrolled symptomatic -Chronic medical debility -Chronic congestive heart failure from gastric dysfunction EF 60-65% room- obesity BMI 31.2 -Chronic gait dysfunction uses a walker/wheelchair -Diabetes mellitus type 2 on oral hypoglycemic -Chronic lumbar stenosis with radiculopathy -Primary Yarelis arthritis of multiple joints -Chronic pain syndrome. Dr. [facility] from [facility] Plan: Home medications resumed. Patient will need a Cardizem drip. Also put on Lovenox. Home medications resumed. Accu-Cheks will be followed. Care was discussed with the patient. Cardiology was consulted. No family so the bedside. Past Medical History Past Medical History: Atrial Fibrillation, Diabetes Mellitus, Hypertension Additional Past Medical History / Comment(s): DDD History of Any Multi-Drug Resistant Organisms: None Reported Past Surgical History: Uterine Ablation Additional Past Surgical History / Comment(s): cataracts removed Past Anesthesia/Blood Transfusion Reactions: No Reported Reaction Past Psychological History: No Psychological Hx Reported Smoking Status: Never smoker Past Alcohol Use History: None Reported Past Drug Use History: None Reported - Past Family History Mother Family Medical History: No Reported History Father Family Medical History: Unable to Obtain Medications and Allergies Home Medications Medication Instructions Recorded Confirmed Type metFORMIN HCL ER [Glucophage Xr] 500 mg PO BID 04/03/19 09/30/19 History Metoprolol Tartrate [Lopressor] 100 mg PO BID #60 tab 04/05/19 09/30/19 Rx Nitroglycerin Sl Tabs [Nitrostat] 0.4 mg SUBLINGUAL Q5M PRN #30 tab 04/05/19 09/30/19 Rx DULoxetine HCL [Cymbalta] 60 mg PO DAILY 09/30/19 09/30/19 History Glimepiride [Amaryl] 2 mg PO BID 09/30/19 09/30/19 History HYDROcodone/APAP 10-325MG [[place] 1 tab PO Q6HR PRN 09/30/19 09/30/19 History 10-325] Torsemide [Demadex] 10 mg PO DAILY 09/30/19 09/30/19 History Allergies Allergy/AdvReac Type Severity Reaction Status Date / Time aspirin AdvReac Nausea Verified 09/30/19 13:57 Physical Exam Vitals: Vital Signs Temp Pulse Pulse Resp BP BP Pulse Ox 09/30/19 19:28 98.0 F 85 18 104/65 100 09/30/19 16:40 98.1 F 94 109/61 99 09/30/19 16:07 98.0 F 108 H 18 132/91 96 09/30/19 14:47 118 H 18 129/82 96 09/30/19 13:47 125 H 09/30/19 13:25 97.8 F 125 H 18 132/103 100 Intake and Output 09/30/19 09/30/19 10/01/19 14:59 22:59 06:59 Intake Total 112 Balance 112 Intake: Oral 112 Other: # Voids 1 Weight 72.575 kg 72.575 kg Results CBC & Chem 7: 09/30/19 13:36 09/30/19 13:36 Labs: Abnormal Lab Results - Last 24 Hours (Table) 09/30/19 09/30/19 09/30/19 Range/Units 13:36 13:36 20:40 WBC 11.3 H (3.8-10.6) k/uL MCHC 30.8 L (31.0-37.0) g/dL RDW 17.2 H (11.5-15.5) % Neutrophils # 8.9 H (1.3-7.7) k/uL Sodium 136 L (137-145) mmol/L BUN 23 H (7-17) mg/dL POC Glucose (mg/dL) 165 H (75-99) mg/dL Calcium 10.4 H (8.4-10.2) mg/dL Alkaline Phosphatase 166 H (38-126) U/L Thrombosis Risk Factor Assmnt - Choose All That Apply Each Factor Represents 1 point: Obesity (BMI >25) Each Risk Factor Represents 3 Points: Age 75 years or older Thrombosis Risk Factor Assessment Total Risk Factor Score: 4 Thrombosis Risk Factor Assessment Level: Moderate Risk
[2019-10-01 06:26] LABS: Mean Platelet Volume 6.4; Platelet Count 295 k/uL (150-450)
[2019-10-01 06:32] LABS: Glucose,Whole Blood 59 mg/dL (75-99)
[2019-10-01 06:33] LABS: Glucose,Whole Blood 81 mg/dL (75-99)
[2019-10-01 06:38] LABS: Cholesterol 150 mg/dL (<200); HDL Cholesterol 39 mg/dL (40-60); LDL Cholesterol,Calculated 97 mg/dL (0-99); Triglycerides 72 mg/dL (<150)
[2019-10-01] MEDS: HYDROcodone/APAP 10-325MG 1 EACH TAB PO PRN (06:46)
[2019-10-01] MEDS ORDERED: ENOXAPARIN 60 MG/0.6 ML SYRINGE SQ SCH (07:00)
[2019-10-01] MEDS ORDERED: metFORMIN 500 MG TAB PO SCH (07:30)
[2019-10-01] MEDS: INSULIN ASPART (NovoLOG) 100 UNIT/ML VIAL SQ SCH ×2 (08:52→11:52)
[2019-10-01] MEDS: METOPROLOL TARTRATE 50 MG TAB PO SCH (08:57)
[2019-10-01] MEDS: GLIMEPIRIDE 2 MG TAB PO SCH (08:57)
[2019-10-01] MEDS ORDERED: DULoxetine HCL 60 MG CAPSULE.DR PO SCH (09:00)
--- NOTE | 2019-10-01 09:24 | P.CRDCN ---
History of Present Illness Consult date: 10/01/19 Requesting physician: Jose Elias Morton Consult reason: atrial fibrillation Chief complaint: Atrial fibrillation History of present illness: This is a pleasant 79-year-old female with history of hypertension, diabetes, hyperlipidemia, persistent atrial fibrillation she follows with Dr. Ovalle in the office. She was scheduled to have a carpal tunnel procedure performed, just prior to the procedure, patient's heart rate went up into the 11/29/1939 range, the procedure was canceled and cardiology consultation was obtained. Patient was last seen in the office in July, was clear to have this procedure performed, she was instructed to hold her Eliquis 2 days prior to the procedure. Upon taking the history from the patient, she actually has not been taking her Eliquis for quite some time, initially she states it was costing her $10-$20 a month, then the miranda went up to the $500 range and she stopped taking it. Patient also had held her Lopressor the morning of the procedure. Her home medications include Amaryl 2 mg twice a day, Cymbalta 60 mg daily, Lopressor 100 mg twice a day, Glucophage 500 twice a day, Demadex 10 mg daily. She is wheelchair bound. Blood pressure on arrival here 132/103, heart rate 125, afebrile, 100% on room air. She is currently on IV Cardizem drip at 5 mg per hour, blood pressure 100/50 with a heart rate 70s. Chest x-ray on arrival h ere showed cardiomegaly with small left pleural effusion. No significant change from prior study. EKG showed atrial fibrillation with a rapid ventricular response. White blood cell count 11.3, hemoglobin 11.9, platelet count 295. Sodium 136, potassium 5.1, BUN 23, creatinine 0.5. Troponin 0.0123, TSH 1.2, free T4 1 0.7, free T3 3 0.6. Cholesterol 150, triglycerides 72, LDL 97, HDL 39. At the time of my examination this morning, the patient feels well, she is quite eager to be discharged home today. Past Medical History Past Medical History: Atrial Fibrillation, Diabetes Mellitus, Hypertension Additional Past Medical History / Comment(s): DDD History of Any Multi-Drug Resistant Organisms: None Reported Past Surgical History: Uterine Ablation Additional Past Surgical History / Comment(s): cataracts removed Past Anesthesia/Blood Transfusion Reactions: No Reported Reaction Past Psychological History: No Psychological Hx Reported Smoking Status: Never smoker Past Alcohol Use History: None Reported Past Drug Use History: None Reported - Past Family History Mother Family Medical History: No Reported History Father Family Medical History: Unable to Obtain Medications and Allergies Home Medications Medication Instructions Recorded Confirmed Type metFORMIN HCL ER [Glucophage Xr] 500 mg PO BID 04/03/19 09/30/19 History Metoprolol Tartrate [Lopressor] 100 mg PO BID #60 tab 04/05/19 09/30/19 Rx Nitroglycerin Sl Tabs [Nitrostat] 0.4 mg SUBLINGUAL Q5M PRN #30 tab 04/05/1912/18 Rx DULoxetine HCL [Cymbalta] 60 mg PO DAILY 09/30/19 09/30/19 History Glimepiride [Amaryl] 2 mg PO BID 09/30/19 09/30/19 History HYDROcodone/APAP 10-325MG [[place] 1 tab PO Q6HR PRN 09/30/19 09/30/19 History 10-325] Torsemide [Demadex] 10 mg PO DAILY 09/30/19 09/30/19 History Allergies Allergy/AdvReac Type Severity Reaction Status Date / Time aspirin AdvReac Nausea Verified 09/30/19 13:57 Physical Exam Vitals: Vital Signs Temp Pulse Pulse Resp BP BP Pulse Ox 10/01/19 08:00 98.2 F 75 17 101/52 99 10/01/19 03:23 97.6 F 76 18 104/46 98 10/01/19 00:00 98.4 F 90 18 118/72 95 09/30/19 19:28 98.0 F 85 18 104/65 100 09/30/19 16:40 98.1 F 94 109/61 99 09/30/19 16:07 98.0 F 108 H 18 132/91 96 09/30/19 14:47 118 H 18 129/82 96 09/30/19 13:47 125 H 09/30/19 13:25 97.8 F 125 H 18 132/103 100 Intake and Output 09/30/19 10/01/19 10/01/19 22:59 06:59 14:59 Intake Total 112 Output Total 0 Balance 112 0 Intake: Oral 112 Output: Urine 0 Other: Voiding Method Toilet # Voids 1 1 Weight 72.575 kg 74 kg PHYSICAL EXAMINATION: GENERAL: 79-year-old female in no acute distress at the time of my examination HEENT: Head is atraumatic, normocephalic. Pupils equal, round. Sclera anicteric. Conjunctiva are clear. Mucous membranes of the mouth are moist. Neck is supple. There is no elevated jugular venous pressure. No carotid bruit is heard. HEART EXAMINATION: S1 and S2 irregularly irregular systolic murmur is heard CHEST EXAMINATION: Lungs are clear to auscultation and precussion. No chest wall tenderness is noted on palpation or with deep breathing. ABDOMEN: Soft, nontender. Bowel sounds are heard. No organomegaly noted. EXTREMITIES: 2+ peripheral pulses with trace evidence of peripheral edema and no calf tenderness noted. Bilateral lower extremity redness noted NEUROLOGIC patient is awake, alert and oriented 3 . . Results 10/01/19 06:02 09/30/19 13:36 Cardiac Enzymes 09/30/19 09/30/19 09/30/19 Range/Units 13:36 13:36 20:45 AST 21 (14-36) U/L Troponin I <0.012 <0.012 (0.000-0.034) ng/mL 10/01/19 Range/Units 01:20 AST (14-36) U/L Troponin I <0.012 (0.000-0.034) ng/mL Coagulation 09/30/19 Range/Units 13:36 PT 10.2 (9.0-12.0) sec APTT 22.9 (22.0-30.0) sec Lipids 10/01/19 Range/Units 06:02 Triglycerides 72 (<150) mg/dL Cholesterol 150 (<200) mg/dL HDL Cholesterol 39 L (40-60) mg/dL CBC 09/30/19 10/01/19 Range/Units 13:36 06:02 WBC 11.3 H (3.8-10.6) k/uL RBC 4.62 (3.80-5.40) m/uL Hgb 11.9 (11.4-16.0) gm/dL Hct 38.5 (34.0-46.0) % Plt Count 356 295 (150-450) k/uL Comprehensive Metabolic Panel 09/30/19 Range/Units 13:36 Sodium 136 L (137-145) mmol/L Potassium 5.1 (3.5-5.1) mmol/L Chloride 99 (98-107) mmol/L Carbon Dioxide 28 (22-30) mmol/L BUN 23 H (7-17) mg/dL Creatinine 0.75 (0.52-1.04) mg/dL Glucose 94 (74-99) mg/dL Calcium 10.4 H (8.4-10.2) mg/dL AST 21 (14-36) U/L ALT 15 (9-52) U/L Alkaline Phosphatase 166 H (38-126) U/L Total Protein 6.9 (6.3-8.2) g/dL Albumin 3.6 (3.5-5.0) g/dL Current Medications Generic Name Dose Route Start Last Admin Trade Name Freq PRN Reason Stop Dose Admin Hydrocodone Bitart/Acetaminophen 1 each 09/30/19 19:13 10/01/19 06:46 [place] 10 PO 1 each Q6HR PRN Administration pain Duloxetine HCl 60 mg 10/01/19 09:00 10/01/19 08:57 Cymbalta PO 60 mg DAILY MINOO Administration Enoxaparin Sodium 60 mg 10/01/19 07:00 10/01/19 06:42 Lovenox SQ 60 mg Q12H MINOO Administration Glimepiride 2 mg 09/30/19 21:00 10/01/19 08:57 Amaryl PO 2 mg BID MINOO Administration Diltiazem HCl 125 mg/ Sodium 125 mls @ 5 mls/hr 09/30/19 14:00 09/30/19 14:20 Chloride IV 5 mg/hr .Q24H MINOO 5 mls/hr Administration 5 MG/HR Insulin Aspart 0 unit 09/30/19 17:30 10/01/19 08:52 Novolog SQ Not Given ACHS [facility] Protocol Metformin HCl 500 mg 10/01/19 07:30 10/01/19 06:43 Glucophage PO 500 mg AC-BID MINOO Administration Metoprolol Tartrate 100 mg 09/30/19 21:00 10/01/19 08:57 Lopressor PO 100 mg BID MINOO Administration Nitroglycerin 0.4 mg 09/30/19 15:26 Nitrostat SUBLINGUAL Q5M PRN Chest Pain Nitroglycerin 0.4 mg 09/30/19 19:13 Nitrostat SUBLINGUAL Q5M PRN Chest Pain Sodium Chloride 10 ml 09/30/19 21:00 10/01/19 08:57 Saline Flush IV 10 ml BID MINOO Administration Intake and Output 09/30/19 10/01/19 10/01/19 22:59 06:59 14:59 Intake Total 112 Output Total 0 Balance 112 0 Intake: Oral 112 Output: Urine 0 Other: Voiding Method Toilet # Voids 1 1 Weight 72.575 kg 74 kg 10/01/19 06:02 09/30/19 13:36 EKG Interpretations (text) EKG shows atrial fibrillation with rapid ventricular response Assessment and Plan Plan: Assessment and plan #1 atrial fibrillation with rapid ventricular response #2 chronic persistent or fibrillation, noncompliance with anticoagulation #3 diabetes #4 hypertension #5 hyperlipidemia Plan Patient did have an echocardiogram with Doppler study performed in March of this year which revealed a normal ejection fraction, mild aortic stenosis. We will repeat an echo on this admission, the TSH level was normal. We will also have case management look into coverage for Eliquis. We will discontinue the IV Cardizem. Further recommendations to follow. DNP note has been reviewed, I agree with a documented findings and plan of care. Patient was seen and examined.
[2019-10-01] MEDS ORDERED: APIXABAN 5 MG TAB PO SCH (09:30)
--- NOTE | 2019-10-01 10:56 | ECHOF ---
Referral Reason:afib MEASUREMENTS -------- HEIGHT: 152.4 cm WEIGHT: 73.9 kg BP: 101/52 RVIDd: 2.5 cm (< 3.3) IVSd: 1.1 cm (0.6 - 1.1) LVIDd: 4.7 cm (3.9 - 5.3) LVPWd: 1.1 cm (0.6 - 1.1) IVSs: 1.5 cm LVIDs: 2.9 cm LVPWs: 1.5 cm LA Diam: 3.6 cm (2.7 - 3.8) LAESV Index (A-L): 38.77 ml/m Ao Diam: 3.0 cm (2.0 - 3.7) AV Cusp: 1.7 cm (1.5 - 2.6) MV EXCURSION: 13.059 mm (> 18.000) MV EF SLOPE: 85 mm/s (70 - 150) EPSS: 1.1 cm RAP: 15.00 mmHg RVSP: 45.66 mmHg FINDINGS -------- Atrial fibrillation. This was a technically adequate study. The left ventricular size is normal. There is borderline concentric left ventricular hypertrophy. Overall left ventricular systolic function is normal with, an EF between 55 - 60 %. The right ventricle is normal in size. LA is moderately dilated 34-39 ml/m2 The right atrium is normal in size. Interatrial and interventricular septum intact. There is mild aortic valve sclerosis. The mitral valve leaflets are mildly thickened. Mild mitral annular calcification present. Mild m itral regurgitation is present. Mild tricuspid regurgitation present. There is mild to moderate pulmonary hypertension. The right ventricular systolic pressure, as measured by Doppler, is 45.66mmHg. There is no pulmonic regurgitation present. The aortic root size is normal. Normal inferior vena cava with normal inspiratory collapse consistent with estimated right atrial pre ssure of 5 mmHg. There is no pericardial effusion. CONCLUSIONS -------- 1. Atrial fibrillation. 2. This was a technically adequate study. 3. The left ventricular size is normal. 4. There is borderline concentric left ventricular hypertrophy. 5. Overall left ventricular systolic function is normal with, an EF between 55 - 60 %. 6. The right ventricle is normal in size. 7. LA is moderately dilated 34-39 ml/m2 8. The right atrium is normal in size. 9. Interatrial and interventricular septum intact. 10. There is mild aortic valve sclerosis. 11. The mitral valve leaflets are mildly thickened. 12. Mild mitral annular calcification present. 13. Mild mitral regurgitation is present. 14. Mild tricuspid regurgitation present. 15. There is mild to moderate pulmonary hypertension. 16. The right ventricular systolic pressure, as measured by Doppler, is 45.66mmHg. 17. There is no pulmonic regurgitation present. 18. The aortic root size is normal. 19. Normal inferior vena cava with normal inspiratory collapse consistent with estimated right atrial pressure of 5 mmHg. 20. There is no pericardial effusion. INTERACTIVE MEDIA MARKETING SPECIALIST: Marcelina Valdez RDCS
[2019-10-01 11:38] LABS: Glucose,Whole Blood 201 mg/dL (75-99)
[2019-10-01 11:59] VITALS: BP 102/72; PULSE 77; RESP 14; TEMP 98.1
--- NOTE | 2019-10-04 14:50 | P.DS ---
Providers Date of admission: 09/30/19 15:34 Expected date of discharge: 10/01/19 Attending physician: Jose Elias Morton Consults: 09/30/19 15:26 Consult Physician Urgent Consulting Provider: Glenn Pantoja Consult Reason/Comments: a fib Do you want consulting provider notified?: Yes Primary care physician: Stanislaw Dewitt [facility] Hospital Course: Chief Complaint: Uncontrolled atrial fibrillation Hospital course: This is a 79-year-old patient who follows with Dr. Dewitt. Chronic stable medical conditions include congestive heart failure from diastolic dysfunction EF 60-65%, medical debility, chronic gait dysfunction uses a walker or wheelchair, diabetes mellitus type 2, lumbar stenosis with radiculopathy, primary osteoarthritis. Patient was going to have surgery and patient was discovered to have atrial fibrillation with a rapid ventricular rate. Patient has known chronic A. fib. Patient has been feeling a bit dizzy A. Denies any chest pain. Admitted for the same. Symptoms and heart rate much better controlled by discharge. 2-D echo showed preserved LV function. Eliquis was added. Dose of Demadex was changed. Discussed with the patient and the . Discussed with cardiology Discussion and discharge planning more than 35 minutes Consultation: Dr. Montelongo from cardiology Physical examination: VITAL SIGNS: 98.1, 77, 14, 102/72, 98% room air GENERAL: BMI 31.2, laying in bed slightly anxious. EYES: Pupils equal. Conjunctiva normal. HEENT: External appearance of nose and ears normal, oral cavity grossly normal. NECK: JVD not raised; masses not palpable. HEART: Heart sounds irregular; no edema. LUNGS: Respiratory rate normal; clear to auscultation. ABDOMEN: Soft, nontender, liver spleen not palpable, no masses palpable. PSYCH: Alert and oriented x3; mood and affect anxiousl. MUSCULOSKELETAL: Evidence of osteoarthritis in hands INVESTIGATIONS, reviewed in the clinical context: White count 11.3 hemoglobin 11.9 platelets 356 potassium 5.1 creatinine 0.75 LDL 97, troponin 3 negative EKG tracing personally reviewed by me shows atrial flutter fibrillation with a rate close to 120 Chest x-ray film-personally reviewed by me shows minimal venous prominence 2-D echo-EF 55-60% Assessment: -Persistent atrial fibrillation now with rapid ventricular rate uncontrolled symptomatic, POA -Chronic medical debility -Chronic congestive heart failure from diastolic dysfunction EF 60-65% -obesity BMI 31.2 -Chronic gait dysfunction uses a walker/wheelchair -Diabetes mellitus type 2 on oral hypoglycemic -Chronic lumbar stenosis with radiculopathy -Primary osteoarthritis of multiple joints -Chronic pain syndrome. Dr. [facility] Disposition: Home Patient Condition at Discharge: Stable Plan - Discharge Summary Discharge Rx Participant: No New Discharge Prescriptions: New Apixaban [Eliquis] 5 mg PO BID tab Continue metFORMIN HCL ER [Glucophage Xr] 500 mg PO BID Metoprolol Tartrate [Lopressor] 100 mg PO BID #60 tab Nitroglycerin Sl Tabs [Nitrostat] 0.4 mg SUBLINGUAL Q5M PRN #30 tab PRN Reason: Chest Pain Glimepiride [Amaryl] 2 mg PO BID DULoxetine HCL [Cymbalta] 60 mg PO DAILY HYDROcodone/APAP 10-325MG [[place] 10-325] 1 tab PO Q6HR PRN PRN Reason: pain Changed Torsemide [Demadex] 10 mg PO MOWEFR #0 Discharge Medication List metFORMIN HCL ER [Glucophage Xr] 500 mg PO BID 04/03/19 [History] Metoprolol Tartrate [Lopressor] 100 mg PO BID #60 tab 04/05/19 [Rx] Nitroglycerin Sl Tabs [Nitrostat] 0.4 mg SUBLINGUAL Q5M PRN #30 tab 04/05/19 [Rx] DULoxetine HCL [Cymbalta] 60 mg PO DAILY 09/30/19 [History] Glimepiride [Amaryl] 2 mg PO BID 09/30/19 [History] HYDROcodone/APAP 10-325MG [[place] 10-325] 1 tab PO Q6HR PRN 09/30/19 [History] Apixaban [Eliquis] 5 mg PO BID tab 10/01/19 [Rx] Torsemide [Demadex] 10 mg PO MOWEFR #0 10/01/19 [Rx] Follow up Appointment(s)/Referral(s): Stanislaw Dewitt DO [Primary Care Provider] - 10/04/19 1:15 pm Maikol Ovalle MD [STAFF PHYSICIAN] - 10/08/19 4:00 pm Patient Instructions/Handouts: A-fib (Atrial Fibrillation) (DC) Activity/Diet/Wound Care/Special Instructions: Additional Elliquis needs to be picked up at [facility] at follow up appointment. Discharge Disposition: HOME SELF-CARE
== END 2019-10-01 16:16 | disposition home or self-care (01) ==
LOC: EC 13:13 → 3SCARD 15:34
PROVIDERS: ADMIT Hospitalist; ATTEND Hospitalist
DX: I48.19 Other persistent atrial fibrillation (principal); E11.9 Type 2 diabetes mellitus without complications; E66.9 Obesity, unspecified; E78.5 Hyperlipidemia, unspecified; G89.4 Chronic pain syndrome; I11.0 Hypertensive heart disease with heart failure; I50.32 Chronic diastolic (congestive) heart failure; M15.9 Polyosteoarthritis, unspecified; M48.061 Spinal stenosis, lumbar region without neurogenic claudication; M54.16 Radiculopathy, lumbar region; Z68.31 Body mass index [BMI] 31.0-31.9, adult; Z79.01 Long term (current) use of anticoagulants; Z79.84 Long term (current) use of oral hypoglycemic drugs; Z79.899 Other long term (current) drug therapy; Z91.14 Patient's other noncompliance with medication regimen; Z99.3 Dependence on wheelchair; R53.81 Other malaise; R26.9 Unspecified abnormalities of gait and mobility; Z98.42 Cataract extraction status, left eye; Z98.41 Cataract extraction status, right eye; Z88.6 Allergy status to analgesic agent
CPT/HCPCS: 96366 ×3; 96372 ×2; 93005 ×2; 96365; 99291; 36415; 93306; 84439; 84481; 80061; 80053; 83735; 84443; 84484 ×2; 85025; 85049; 85610; 85730; 71046; G0378 ×2; J1650 ×2

== ENCOUNTER 2019-11-11 09:03 | Inpatient (IN) | payer MEDICARE, BC ==
[2019-11-11] MEDS ORDERED: FUROSEMIDE 10 MG/ML 4 ML VIAL IV STA (09:27)
[2019-11-11] MEDS ORDERED: DILTIAZEM DRIP BOLUS FROM BAG 1 MG SOLN IV ONE ×2 (09:27→10:57)
--- NOTE | 2019-11-11 09:30 | ED ---
General Adult HPI - General Chief complaint: Recheck/Abnormal Lab/Rx Stated complaint: AFIB Time Seen by Provider: 11/11/19 09:05 Source: patient, family, RN/MD, EMS, RN notes reviewed Mode of arrival: EMS Limitations: no limitations - History of Present Illness Initial comments: Patient is a pleasant 79-year-old female presenting to the emergency Department with intrafibrillation. Patient was sent from bladder surgical from Dr. Brandt. Patient was planning on having carpal tunnel surgery. Patient was found to be in A. fib with RVR with a rate of 160. There was associated leg edema. Patient does complain of leg edema however has no other complaints. Patient denies any chest pain or palpitations. Patient denies any dyspnea. Patient was sent from the same surgical center approximately a month ago with similar problems. - Related Data Home Medications Medication Instructions Recorded Confirmed metFORMIN HCL ER [Glucophage Xr] 500 mg PO BID 04/03/19 09/30/19 DULoxetine HCL [Cymbalta] 60 mg PO DAILY 09/30/19 09/30/19 Glimepiride [Amaryl] 2 mg PO BID 09/30/19 09/30/19 HYDROcodone/APAP 10-325MG [[place] 1 tab PO Q6HR PRN 09/30/19 09/30/19 10-325] Previous Rx's Medication Instructions Recorded Metoprolol Tartrate [Lopressor] 100 mg PO BID #60 tab 04/05/19 Nitroglycerin Sl Tabs [Nitrostat] 0.4 mg SUBLINGUAL Q5M PRN #30 tab 04/05/19 Apixaban [Eliquis] 5 mg PO BID tab 10/01/19 Torsemide [Demadex] 10 mg PO MOWEFR #0 10/01/19 Allergies Allergy/AdvReac Type Severity Reaction Status Date / Time aspirin AdvReac Nausea Verified 09/30/19 13:57 Review of Systems ROS Statement: Those systems with pertinent positive or pertinent negative responses have been documented in the HPI. ROS Other: All systems not noted in ROS Statement are negative. Constitutional: Denies: fever Eyes: Denies: eye pain ENT: Denies: ear pain Respiratory: Denies: cough, dyspnea Cardiovascular: Reports: edema. Denies: chest pain, palpitations Endocrine: Denies: fatigue Gastrointestinal: Denies: abdominal pain Genitourinary: Denies: dysuria Musculoskeletal: Denies: back pain Skin: Denies: rash Neurological: Denies: headache, weakness Past Medical History Past Medical History: Atrial Fibrillation, Diabetes Mellitus, Hypertension Additional Past Medical History / Comment(s): DDD History of Any Multi-Drug Resistant Organisms: None Reported Past Surgical History: Uterine Ablation Additional Past Surgical History / Comment(s): cataracts removed Past Anesthesia/Blood Transfusion Reactions: No Reported Reaction Past Psychological History: No Psychological Hx Reported Smoking Status: Never smoker Past Alcohol Use History: None Reported Past Drug Use History: None Reported - Past Family History Mother Family Medical History: No Reported History Father Family Medical History: Unable to Obtain General Exam Limitations: no limitations General appearance: alert, in no apparent distress Head exam: Present: normocephalic Eye exam: Present: normal appearance Respiratory exam: Present: normal lung sounds bilaterally Cardiovascular Exam: Present: tachycardia, irregular rhythm GI/Abdominal exam: Present: soft. Absent: tenderness Extremities exam: Present: pedal edema. Absent: calf tenderness Neurological exam: Present: alert Psychiatric exam: Present: normal affect, normal mood Skin exam: Present: normal color Course Vital Signs 11/11/19 09:10 Temperature 97.7 F Pulse Rate 144 H Respiratory 18 Rate Blood Pressure 121/94 O2 Sat by Pulse 100 Oximetry EKG Findings - EKG Comments: EKG Findings:: A. fib with RVR, rate 138. QRS 66. QT 326. QTc 493. Left axis. Inferior Q waves. Septal Q waves. No acute ST change. Medical Decision Making - Medical Decision Making Patient reevaluated. Patient and family updated on results and plan. Heart rate 133. Case also discussed with Dr. Morton, who will admit covered for Dr. Dewitt. - Lab Data Result diagrams: 11/11/19 09:27 11/11/19 09:27 Lab Results 11/11/19 11/11/19 11/11/19 Range/Units 09:27 09:27 09:27 WBC 11.2 H (3.8-10.6) k/uL RBC 3.84 (3.80-5.40) m/uL Hgb 10.8 L (11.4-16.0) gm/dL Hct 33.8 L (34.0-46.0) % MCV 88.0 (80.0-100.0) fL MCH 28.0 (25.0-35.0) pg MCHC 31.8 (31.0-37.0) g/dL RDW 15.7 H (11.5-15.5) % Plt Count 328 (150-450) k/uL Neutrophils % 77 % Lymphocytes % 18 % Monocytes % 4 % Eosinophils % 1 % Basophils % 0 % Neutrophils # 8.6 H (1.3-7.7) k/uL Lymphocytes # 2.0 (1.0-4.8) k/uL Monocytes # 0.4 (0-1.0) k/uL Eosinophils # 0.1 (0-0.7) k/uL Basophils # 0.0 (0-0.2) k/uL Hypochromasia Slight PT (9.0-12.0) sec INR (<1.2) APTT (22.0-30.0) sec Sodium 140 (137-145) mmol/L Potassium 4.6 (3.5-5.1) mmol/L Chloride 104 (98-107) mmol/L Carbon Dioxide 28 (22-30) mmol/L Anion Gap 8 mmol/L BUN 26 H (7-17) mg/dL Creatinine 0.72 (0.52-1.04) mg/dL Est GFR (CKD-EPI)AfAm >90 (>60 ml/min/1.73 sqM) Est GFR (CKD-EPI)NonAf 81 (>60 ml/min/1.73 sqM) Glucose 98 (74-99) mg/dL Calcium 9.7 (8.4-10.2) mg/dL Magnesium 2.0 (1.6-2.3) mg/dL Total Bilirubin 0.7 (0.2-1.3) mg/dL AST 25 (14-36) U/L ALT 11 (4-34) U/L Alkaline Phosphatase 173 H (38-126) U/L Creatine Kinase 35 (30-135) U/L Troponin I (0.000-0.034) ng/mL NT-Pro-B Natriuret Pep 3810 pg/mL Total Protein 6.8 (6.3-8.2) g/dL Albumin 3.4 L (3.5-5.0) g/dL 11/11/19 11/11/19 Range/Units 09:27 09:27 WBC (3.8-10.6) k/uL RBC (3.80-5.40) m/uL Hgb (11.4-16.0) gm/dL Hct (34.0-46.0) % MCV (80.0-100.0) fL MCH (25.0-35.0) pg MCHC (31.0-37.0) g/dL RDW (11.5-15.5) % Plt Count (150-450) k/uL Neutrophils % % Lymphocytes % % Monocytes % % Eosinophils % % Basophils % % Neutrophils # (1.3-7.7) k/uL Lymphocytes # (1.0-4.8) k/uL Monocytes # (0-1.0) k/uL Eosinophils # (0-0.7) k/uL Basophils # (0-0.2) k/uL Hypochromasia PT 10.5 (9.0-12.0) sec INR 1.0 (<1.2) APTT 23.8 (22.0-30.0) sec Sodium (137-145) mmol/L Potassium (3.5-5.1) mmol/L Chloride (98-107) mmol/L Carbon Dioxide (22-30) mmol/L Anion Gap mmol/L BUN (7-17) mg/dL Creatinine (0.52-1.04) mg/dL Est GFR (CKD-EPI)AfAm (>60 ml/min/1.73 sqM) Est GFR (CKD-EPI)NonAf (>60 ml/min/1.73 sqM) Glucose (74-99) mg/dL Calcium (8.4-10.2) mg/dL Magnesium (1.6-2.3) mg/dL Total Bilirubin (0.2-1.3) mg/dL AST (14-36) U/L ALT (4-34) U/L Alkaline Phosphatase (38-126) U/L Creatine Kinase (30-135) U/L Troponin I <0.012 (0.000-0.034) ng/mL NT-Pro-B Natriuret Pep pg/mL Total Protein (6.3-8.2) g/dL Albumin (3.5-5.0) g/dL - Radiology Data Radiology results: image reviewed (Chest x-ray shows no acute cardiopulmonary process) Critical Care Time Critical Care Time: Yes Total Critical Care Time: 32 Disposition Clinical Impression: Atrial fibrillation with RVR Disposition: ADMITTED IP TO THIS HOSP Is patient prescribed a controlled substance at d/c from ED?: No Referrals: Stanislaw Dewitt DO [Primary Care Provider] - 1-2 days Decision Time: 10:36
[2019-11-11 09:39] LABS: Basophils % (A) 0 %; Eosinophils # (A) 0.1 k/uL (0-0.7); Eosinophils % (A) 1 %; HCT 33.8 % (34.0-46.0); HGB 10.8 gm/dL (11.4-16.0); Hypochromasia Slight; Lymphocytes % (A) 18 %; MCHC 31.8 g/dL (31.0-37.0); Mean Platelet Volume 6.9; Monocytes # (A) 0.4 k/uL (0-1.0); Monocytes % (A) 4 %; Neutrophils # (A) 8.6 k/uL (1.3-7.7); Neutrophils % (A) 77 %; Platelet Count 328 k/uL (150-450); RBC 3.84 m/uL (3.80-5.40); RDW 15.7 % (11.5-15.5); WBC 11.2 k/uL (3.8-10.6)
[2019-11-11 09:51] LABS: Partial Thromboplastin Time 23.8 sec (22.0-30.0); Prothrombin Time 10.5 sec (9.0-12.0)
[2019-11-11 10:03] LABS: ALT 11 U/L (4-34); AST 25 U/L (14-36); African American GFR (CKD) >90 (>60 ml/min/1.73 sqM); Albumin 3.4 g/dL (3.5-5.0); Alkaline Phosphatase 173 U/L (38-126); Anion Gap 8 mmol/L; Blood Urea Nitrogen 26 mg/dL (7-17); Calcium 9.7 mg/dL (8.4-10.2); Carbon Dioxide 28 mmol/L (22-30); Chloride 104 mmol/L (98-107); Creatine Kinase 35 U/L (30-135); Glucose 98 mg/dL (74-99); Non-African American GFR(CKD) 81 (>60 ml/min/1.73 sqM); Potassium 4.6 mmol/L (3.5-5.1); Sodium 140 mmol/L (137-145); Total Bilirubin 0.7 mg/dL (0.2-1.3); Total Protein 6.8 g/dL (6.3-8.2)
--- NOTE | 2019-11-11 10:11 | XR ---
EXAMINATION TYPE: XR chest 2V DATE OF EXAM: 11/11/2019 COMPARISON: 09/30/2019 HISTORY: Shortness of breath TECHNIQUE: Frontal and lateral views of the chest are obtained. FINDINGS: Very minimal chronic plate like atelectasis at the left costophrenic angle. There is no foc al air space opacity, pleural effusion, or pneumothorax seen. The cardiac silhouette size is enlarge d. The osseous structures are intact. There is diffuse osseous demineralization and moderate degene rative changes of the spine. Degenerative changes are also seen of the shoulders. IMPRESSION: Minimal chronic left basilar atelectasis. No acute cardiopulmonary process.
[2019-11-11] MEDS: DILTIAZEM 125 MG in SODIUM CHLORIDE 0.9% 100 ML IV SCH (10:18)
[2019-11-11] MEDS ORDERED: NALOXONE 0.4 MG/ML 1 ML VIAL IV PRN (10:58)
[2019-11-11 11:34] LABS: Appearance,Urine Cloudy (Clear); Bacteria,Urine Occasional /hpf; Bilirubin,Urine Negative (Negative); Blood,Urine Moderate (Negative); Calcium Oxalate Crystals,Urine Rare /hpf; Color,Urine Yellow; Glucose,Urine (UA) Negative (Negative); Ketones,Urine Negative (Negative); Leukocyte Esterase,Urine Large (Negative); Mucus,Urine Rare /hpf; Nitrite,Urine Negative (Negative); PH, Urine 6.5 (5.0-8.0); Protein,Urine 1+ (Negative); RBC,Urine >182 /hpf (0-5); Specific Gravity,Urine 1.021 (1.001-1.035); Urobilinogen,Urine <2.0 mg/dL (<2.0); WBC,Urine 97 /hpf (0-5)
--- NOTE | 2019-11-11 16:07 | P.CRDCN ---
History of Present Illness Consult date: 11/11/19 Requesting physician: Jose Elias Morton Consult reason: atrial fibrillation, congestive heart failure History of present illness: This is a pleasant 79-year-old female with history of hypertension, diabetes, hyperlipidemia, persistent atrial fibrillation she follows with Dr. Ovalle in the office. She was scheduled to have a carpal tunnel procedure performed, just prior to the procedure, patient's heart rate went up into the 160 range. Patient also has put on a lot of weight recently since her diuretic dose as an outpatient was decreased, she has significant bilateral peripheral edema. The procedure was canceled and patient was advised to come to the emergency room for further evaluation and treatment. Patient actually had a similar admission to the hospital last month, was scheduled to have carpal tunnel surgery but because of atrial fibrillation with rapid ventricular response and was canceled. Patient has not and does not take her medications regularly at home, it is unsure as to whether or not she even took her beta ramses. She randomly takes her blood thinners. Chest x-ray on presentation here showed minimal chronic left basilar atelectasis with no acute cardiopulmonary disease. EKG and presentation here showed atrial fibrillation with a rapid ventricular response. I pressure 118/60 at present, heart rate in the 120 range, 98% on room air. Blood cell count 11.2, hemoglobin 10.8, platelet count 328. Sodium 140, potassium 4.6, BUN 26, creatinine 0.7. BNP level 3810. Troponins negative. Past Medical History Past Medical History: Atrial Fibrillation, Diabetes Mellitus, Hypertension Additional Past Medical History / Comment(s): DDD History of Any Multi-Drug Resistant Organisms: None Reported Past Surgical History: Uterine Ablation Additional Past Surgical History / Comment(s): cataracts removed Past Anesthesia/Blood Transfusion Reactions: No Reported Reaction Past Psychological History: No Psychological Hx Reported Smoking Status: Never smoker Past Alcohol Use History: None Reported Past Drug Use History: None Reported - Past Family History Mother Family Medical History: No Reported History Father Family Medical History: Unable to Obtain Medications and Allergies Home Medications Medication Instructions Recorded Confirmed Type metFORMIN HCL ER [Glucophage Xr] 500 mg PO BID 04/03/19 11/11/19 History Metoprolol Tartrate [Lopressor] 100 mg PO BID #60 tab 04/05/19 11/11/19 Rx Nitroglycerin Sl Tabs [Nitrostat] 0.4 mg SUBLINGUAL Q5M PRN #30 tab 04/05/19 11/11/19 Rx DULoxetine HCL [Cymbalta] 60 mg PO DAILY 09/30/19 11/11/19 History Glimepiride [Amaryl] 2 mg PO BID 09/30/19 11/11/19 History HYDROcodone/APAP 10-325MG [[place] 1 tab PO Q6HR PRN 09/30/19 11/11/19 History 10-325] Apixaban [Eliquis] 5 mg PO BID tab 10/01/19 11/11/19 Rx Torsemide [Demadex] 10 mg PO MOWEFR #0 10/01/19 11/11/19 Rx Docusate [Colace] 100 mg PO DAILY PRN 11/11/19 11/11/19 History Allergies Allergy/AdvReac Type Severity Reaction Status Date / Time aspirin AdvReac Nausea Verified 11/11/19 11:00 Physical Exam Vitals: Vital Signs Temp Pulse Resp BP Pulse Ox 11/11/19 13:50 94 18 118/65 98 11/11/19 12:15 131 H 19 118/65 100 11/11/19 11:28 115 H 18 119/72 99 11/11/19 09:10 97.7 F 144 H 18 121/94 100 Intake and Output 11/11/19 11/11/19 11/11/19 06:59 14:59 22:59 Other: Weight 76.204 kg PHYSICAL EXAMINATION: GENERAL: 79-year-old female in no acute distress at the time of my examination HEENT: Head is atraumatic, normocephalic. Pupils equal, round. Sclera anicteric. Conjunctiva are clear. Mucous membranes of the mouth are moist. Neck is supple. There is elevated jugular venous pressure. No carotid bruit is heard. HEART EXAMINATION: S1 and S2 irregularly irregular systolic murmur is heard CHEST EXAMINATION: Lungs are clear to auscultation and precussion. No chest wall tenderness is noted on palpation or with deep breathing. ABDOMEN: Soft, nontender. Bowel sounds are heard. No organomegaly noted. EXTREMITIES: 2+ peripheral pulses with 2-3+ evidence of peripheral edema and no calf tenderness noted. Bilateral lower extremity redness noted NEUROLOGIC patient is awake, alert and oriented 3 . Results 11/11/19 09:27 11/11/19 09:27 Cardiac Enzymes 11/11/19 11/11/19 Range/Units 09:27 09:27 AST 25 (14-36) U/L Troponin I <0.012 (0.000-0.034) ng/mL Coagulation 11/11/19 Range/Units 09:27 PT 10.5 (9.0-12.0) sec APTT 23.8 (22.0-30.0) sec CBC 11/11/19 Range/Units 09:27 WBC 11.2 H (3.8-10.6) k/uL RBC 3.84 (3.80-5.40) m/uL Hgb 10.8 L (11.4-16.0) gm/dL Hct 33.8 L (34.0-46.0) % Plt Count 328 (150-450) k/uL Comprehensive Metabolic Panel 11/11/19 Range/Units 09:27 Sodium 140 (137-145) mmol/L Potassium 4.6 (3.5-5.1) mmol/L Chloride 104 (98-107) mmol/L Carbon Dioxide 28 (22-30) mmol/L BUN 26 H (7-17) mg/dL Creatinine 0.72 (0.52-1.04) mg/dL Glucose 98 (74-99) mg/dL Calcium 9.7 (8.4-10.2) mg/dL AST 25 (14-36) U/L ALT 11 (4-34) U/L Alkaline Phosphatase 173 H (38-126) U/L Total Protein 6.8 (6.3-8.2) g/dL Albumin 3.4 L (3.5-5.0) g/dL Current Medications Generic Name Dose Route Start Last Admin Trade Name Freq PRN Reason Stop Dose Admin Apixaban 5 mg 11/11/19 21:00 Eliquis PO BID [facility] Furosemide 40 mg 11/11/19 21:00 Lasix IV Q12HR [facility] Diltiazem HCl 125 mg/ Sodium 125 mls @ 5 mls/hr 11/11/19 09:45 11/11/19 10:18 Chloride IV 5 mg/hr .Q24H [facility] 5 mls/hr Administration 5 MG/HR Metoprolol Tartrate 100 mg 11/11/19 21:00 Lopressor PO BID [facility] Naloxone HCl 0.2 mg 11/11/19 10:58 Narcan IV Q2M PRN Opioid Reversal Intake and Output 11/11/19 11/11/19 11/11/19 06:59 14:59 22:59 Other: Weight 76.204 kg Patient Weight 11/12/19 06:59 Weight 76.204 kg 11/11/19 09:27 11/11/19 09:27 EKG Interpretations (text) EKG shows atrial fibrillation with a rapid ventricular response. Assessment and Plan Plan: Plan: Assessment and plan #1 atrial fibrillation with rapid ventricular response #2 chronic persistent or fibrillation, noncompliance with anticoagulation #3 diabetes #4 hypertension #5 hyperlipidemia #6 diastolic congestive heart failure acute on chronic Plan Patient just recently had an echo less than a month ago that revealed a normal left ventricular systolic function. Continue IV Lasix 40 mg every 12 hourly, continue metoprolol 100 mg by mouth twice a day, Eliquis 5 mg one tablet by mouth twice a day, continue Cardizem drip for tonight. Further recommendations to follow. DNP note has been reviewed, I agree with a documented findings and plan of care. Patient was seen and examined.
--- NOTE | 2019-11-11 21:50 | P.HPIM ---
History of Present Illness H&P Date: 11/11/19 Chief Complaint: A. fib with rapid ventricular rate History of presenting complaint: This is a 79-year-old patient who follows with Dr. Dewitt. Chronic stable medical conditions include congestive heart failure from diastolic dysfunction EF 60-65%, medical debility, chronic gait dysfunction uses a walker or wheelchair, diabetes mellitus type 2, lumbar stenosis with radiculopathy, primary osteoarthritis. Patient has known chronic A. fib. Patient is due to go down. Carpal tunnel surgery. Was in the preoperative area. Found to be in atrial fibrillation with a rapid ventricular rate. Patient feels a little bit of his heart racing. Feels a bit tired. Brought in down to the ER. Admitted for the same. Consultation: Dr. Montelongo from cardiology Review of systems: GEN.: Tired EYES: None HEENT: None NECK: None RESPIRATORY: Some shortness of breath CARDIOVASCULAR: Heart racing GASTROINTESTINAL: None GENITOURINARY: None MUSCULOSKELETAL: Pain in many joints LYMPHATICS: None HEMATOLOGICAL: None PSYCHIATRY: Anxiety NEUROLOGICAL: Numbness tingling in the feet Past medical history to include: Atrial fibrillation, CHF with EF 55-60%, chronic gait dysfunction, diabetes mellitus type 2, lumbar stenosis, radiculopathy, primary osteoarthritis, Social history: Lives with her . No history of smoking or alcohol Negative family history Physical examination: VITAL SIGNS: 97.7, 144, 18, 121/94, 100% room air, upon presentation GENERAL: BMI 32.8, sitting up, but anxious EYES: Pupils equal. Conjunctiva normal. HEENT: External appearance of nose and ears normal, oral cavity grossly normal. NECK: JVD not raised; masses not palpable. HEART: Heart sounds irregular; no edema. LUNGS: Respiratory rate normal; clear to auscultation. ABDOMEN: Soft, nontender, liver spleen not palpable, no masses palpable. PSYCH: Alert and oriented x3; mood and affect anxious NEUROLOGICAL: Cranial nerves grossly intact; no facial asymmetry, power and sensation grossly intact. LYMPHATICS: No lymph nodes palpable in the axilla and neck MUSCULOSKELETAL: Evidence of osteoarthritis in hands INVESTIGATIONS, reviewed in the clinical context: White count 11.2 hemoglobin 10.8 platelets 01/24 depression 4.6 creatinine 0.7 to UA positive EKG tracing personally reviewed by pa-atrial flutter fibrillation with rapid ventricular rate Chest x-ray film personally reviewed by me-cardiomegaly Assessment: -Persistent atrial fibrillation now with rapid ventricular rate uncontrolled symptomatic, POA -Chronic medical debility -Chronic congestive heart failure from diastolic dysfunction EF 60-65% -obesity BMI 31.2 -Chronic gait dysfunction uses a walker/wheelchair -Diabetes mellitus type 2 on oral hypoglycemic -Chronic lumbar stenosis with radiculopathy -Primary osteoarthritis of multiple joints -Chronic pain syndrome. Dr. [facility] Plan: Patient started and IV Cardizem drip. Home medications resumed. Patient also on Lopressor liquids. Accu-Cheks will be followed. Cardiology was consulted. Care was discussed with the patient. Questions were answered. Past Medical History Past Medical History: Atrial Fibrillation, Diabetes Mellitus, Hypertension Additional Past Medical History / Comment(s): DDD History of Any Multi-Drug Resistant Organisms: None Reported Past Surgical History: Uterine Ablation Additional Past Surgical History / Comment(s): cataracts removed Past Anesthesia/Blood Transfusion Reactions: No Reported Reaction Past Psychological History: No Psychological Hx Reported Smoking Status: Never smoker Past Alcohol Use History: None Reported Past Drug Use History: None Reported - Past Family History Mother Family Medical History: No Reported History Father Family Medical History: Unable to Obtain Medications and Allergies Home Medications Medication Instructions Recorded Confirmed Type metFORMIN HCL ER [Glucophage Xr] 500 mg PO BID 04/03/19 11/11/19 History Metoprolol Tartrate [Lopressor] 100 mg PO BID #60 tab 04/05/19 11/11/19 Rx Nitroglycerin Sl Tabs [Nitrostat] 0.4 mg SUBLINGUAL Q5M PRN #30 tab 04/05/19 11/11/19 Rx DULoxetine HCL [Cymbalta] 60 mg PO DAILY 09/30/19 11/11/19 History Glimepiride [Amaryl] 2 mg PO BID 09/30/19 11/11/19 History HYDROcodone/APAP 10-325MG [[place] 1 tab PO Q6HR PRN 09/30/19 11/11/19 History 10-325] Apixaban [Eliquis] 5 mg PO BID tab 10/01/19 11/11/19 Rx Torsemide [Demadex] 10 mg PO MOWEFR #0 10/01/19 11/11/19 Rx Docusate [Colace] 100 mg PO DAILY PRN 11/11/19 11/11/19 History Allergies Allergy/AdvReac Type Severity Reaction Status Date / Time aspirin AdvReac Nausea Verified 11/11/19 11:00 Physical Exam Vitals: Vital Signs Temp Pulse Resp BP Pulse Ox 11/11/19 19:18 112 H 18 118/68 100 11/11/19 17:00 98 18 120/87 98 11/11/19 13:50 94 18 118/65 98 11/11/19 12:15 131 H 19 118/65 100 11/11/19 11:28 115 H 18 119/72 99 11/11/19 09:10 97.7 F 144 H 18 121/94 100 Intake and Output 11/11/19 11/11/19 11/11/19 06:59 14:59 22:59 Other: Weight 76.204 kg Results CBC & Chem 7: 11/11/19 09:27 11/11/19 09:27 Labs: Abnormal Lab Results - Last 24 Hours (Table) 11/11/19 11/11/19 11/11/19 Range/Units 09:27 09:27 10:55 WBC 11.2 H (3.8-10.6) k/uL Hgb 10.8 L (11.4-16.0) gm/dL Hct 33.8 L (34.0-46.0) % RDW 15.7 H (11.5-15.5) % Neutrophils # 8.6 H (1.3-7.7) k/uL BUN 26 H (7-17) mg/dL Alkaline Phosphatase 173 H (38-126) U/L Albumin 3.4 L (3.5-5.0) g/dL Urine Appearance Cloudy H (Clear) Urine Protein 1+ H (Negative) Urine Blood Moderate H (Negative) Ur Leukocyte Esterase Large H (Negative) Urine RBC >182 H (0-5) /hpf Urine WBC 97 H (0-5) /hpf Calcium Oxalate Crystal Rare H (None) /hpf Urine Bacteria Occasional H (None) /hpf Urine Mucus Rare H (None) /hpf Microbiology - Last 24 Hours (Table) 11/11/19 10:55 Urine Culture - Preliminary Urine,Voided
[2019-11-11] MEDS: METOPROLOL TARTRATE 50 MG TAB PO SCH (22:35)
[2019-11-11] MEDS: FUROSEMIDE 10 MG/ML 4 ML VIAL IV SCH (22:54)
[2019-11-11] MEDS: APIXABAN 5 MG TAB PO SCH (23:29)
[2019-11-11 23:51] LABS: Glucose,Whole Blood 110 mg/dL (75-99)
[2019-11-12 06:23] LABS: Glucose,Whole Blood 169 mg/dL (75-99)
[2019-11-12] MEDS: INSULIN ASPART (NovoLOG) 100 UNIT/ML VIAL SQ SCH ×4 (06:36→20:27)
[2019-11-12] MEDS: METOPROLOL TARTRATE 50 MG TAB PO SCH ×2 (10:13→20:27)
[2019-11-12] MEDS: FUROSEMIDE 10 MG/ML 4 ML VIAL IV SCH ×2 (10:13→20:28)
[2019-11-12] MEDS: APIXABAN 5 MG TAB PO SCH ×2 (10:13→20:27)
[2019-11-12] MEDS: DILTIAZEM 125 MG in SODIUM CHLORIDE 0.9% 100 ML IV SCH (10:13)
[2019-11-12 11:54] LABS: Glucose,Whole Blood 147 mg/dL (75-99)
[2019-11-12 13:28] LABS: Hemoglobin A1C 5.7 % (4.0-6.0)
[2019-11-12 14:22] LABS: Calcium 9.5 mg/dL (8.4-10.2); Potassium 4.5 mmol/L (3.5-5.1)
--- NOTE | 2019-11-12 14:44 | P.PN ---
Subjective Progress Note Date: 11/12/19 This is a pleasant 79-year-old female with history of hypertension, diabetes, hyperlipidemia, persistent atrial fibrillation she follows with Dr. Ovalle in the office. She was scheduled to have a carpal tunnel procedure performed, just prior to the procedure, patient's heart rate went up into the 160 range. Patient also has put on a lot of weight recently since her diuretic dose as an outpatient was decreased, she has significant bilateral peripheral edema. The procedure was canceled and patient was advised to come to the emergency room for further evaluation and treatment. Patient actually had a similar admission to the hospital last month, was scheduled to have carpal tunnel surgery but because of atrial fibrillation with rapid ventricular response and was canceled. Patient has not and does not take her medications regularly at home, it is unsure as to whether or not she even took her beta ramses. She randomly takes her blood thinners. Chest x-ray on presentation he re showed minimal chronic left basilar atelectasis with no acute cardiopulmonary disease. EKG and presentation here showed atrial fibrillation with a rapid ventricular response. I pressure 118/60 at present, heart rate in the 120 range, 98% on room air. Blood cell count 11.2, hemoglobin 10.8, platelet count 328. Sodium 140, potassium 4.6, BUN 26, creatinine 0.7. BNP level 3810. Troponins negative. 11/12/2019 Patient was seen and examined this morning, continues to be in atrial fibrillation, heart rate in the 70s. Blood pressure 128/60 with a heart rate in the 70s,sodium 137, potassium 4.5, BUN 28, creatinine 0.8.we will continue the patient on IV Lasix, check lytes BUN and creatinine in the morning, repeat EKG in the morning. Objective - Vital Signs Vital signs: Vital Signs Temp 98.1 F 11/12/19 08:00 Pulse 74 11/12/19 12:00 Resp 18 11/12/19 12:00 BP 129/63 11/12/19 12:00 Pulse Ox 98 11/12/19 12:00 Intake & Output 11/11/19 11/12/19 11/12/19 18:59 06:59 18:59 Intake Total 239.583 Output Total 650 800 Balance -650 -560.417 Weight 76.204 kg 81 kg Intake: Intake, IV Titration 119.583 Amount Diltiazem 125 mg In 119.583 Sodium Chloride 0.9% 100 ml @ 5 MG/HR 5 mls/hr IV .Q24H [facility] Rx#:[id number] Oral 120 Output: Urine 650 800 Other: # Voids 1 # Bowel Movements 1 - Exam PHYSICAL EXAMINATION: GENERAL: 79-year-old female in no acute distress at the time of my examination HEENT: Head is atraumatic, normocephalic. Pupils equal, round. Sclera anicteric. Conjunctiva are clear. Mucous membranes of the mouth are moist. Neck is supple. There is elevated jugular venous pressure. No carotid bruit is heard. HEART EXAMINATION: S1 and S2 irregularly irregular systolic murmur is heard CHEST EXAMINATION: Lungs are clear to auscultation and precussion. No chest wall tenderness is noted on palpation or with deep breathing. ABDOMEN: Soft, nontender. Bowel sounds are heard. No organomegaly noted. EXTREMITIES: 2+ peripheral pulses with 2-3+ evidence of peripheral edema and no calf tenderness noted. Bilateral lower extremity redness noted NEUROLOGIC patient is awake, alert and oriented 3 . - Labs CBC & Chem 7: 11/11/19 09:27 11/12/19 05:38 Labs: Abnormal Lab Results - Last 24 Hours (Table) 11/11/19 11/12/19 11/12/19 Range/Units 23:46 05:38 06:22 BUN 28 H (7-17) mg/dL Glucose 178 H (74-99) mg/dL POC Glucose (mg/dL) 110 H 169 H (75-99) mg/dL 11/12/19 Range/Units 11:35 BUN (7-17) mg/dL Glucose (74-99) mg/dL POC Glucose (mg/dL) 147 H (75-99) mg/dL Microbiology - Last 24 Hours (Table) 11/11/19 10:55 Urine Culture - Final Urine,Voided Assessment and Plan Plan: Plan: Assessment and plan #1 atrial fibrillation with rapid ventricular response #2 chronic persistent or fibrillation, noncompliance with anticoagulation #3 diabetes #4 hypertension #5 hyperlipidemia #6 diastolic congestive heart failure acute on chronic Plan Patient just recently had an echo less than a month ago that revealed a normal left ventricular systolic function. Continue IV Lasix 40 mg every 12 hourly, continue metoprolol 100 mg by mouth twice a day, Eliquis 5 mg one tablet by mouth twice a day, continue Cardizem drip for tonight. obtain lytes BUN and creatinine in the morning as well as a CBC, repeat EKG in the morning. Further recommendations to follow. DNP note has been reviewed, I agree with a documented findings and plan of care. Patient was seen and examined.
[2019-11-12 16:56] LABS: Glucose,Whole Blood 210 mg/dL (75-99)
[2019-11-12] MEDS: ACETAMINOPHEN TAB 325 MG TAB PO PRN (18:03)
[2019-11-12 20:19] LABS: Glucose,Whole Blood 142 mg/dL (75-99)
--- NOTE | 2019-11-12 22:39 | P.PN ---
Progress Note - Text Progress Note Date: 11/12/19 Chief Complaint: A. fib with rapid ventricular rate Interval history: This is a 79-year-old patient who follows with Dr. Dewitt. Chronic stable medical conditions include congestive heart failure from diastolic dysfunction EF 60-65%, medical debility, chronic gait dysfunction uses a walker or wheelchair, diabetes mellitus type 2, lumbar stenosis with radiculopathy, primary osteoarthritis. Patient has known chronic A. fib. Patient was due to cough for Carpal tunnel surgery. Was in the preoperative area. Found to be in atrial fibrillation with a rapid ventricular rate. Started on Cardizem drip. Today-sitting up in a chair. Feeling a bit better. Heart rate is still up. On a Cardizem drip. Also on Lopressor 100 mg twice a day. Review of systems: Was done for constitutional, cardiovascular, GI, pulmonary. relevant finding as above Active Medications Acetaminophen (Tylenol Tab) 650 mg PO Q6HR PRN PRN Reason: Fever and/ or Pain Last Admin: 11/12/19 18:03 Dose: 650 mg Documented by: Apixaban (Eliquis) 5 mg PO BID [facility] Last Admin: 11/12/19 20:27 Dose: 5 mg Documented by: Furosemide (Lasix) 40 mg IV Q12HR [facility] Last Admin: 11/12/19 20:28 Dose: 40 mg Documented by: Diltiazem HCl 125 mg/ Sodium (Chloride) 125 mls @ 5 mls/hr IV .Q24H [facility] Last Infusion: 11/12/19 19:01 Dose: 5 mg/hr, 5 mls/hr Documented by: Insulin Aspart (Novolog) 0 unit SQ ACHS [facility]; Protocol Last Admin: 11/12/19 20:27 Dose: 1 unit Documented by: Metoprolol Tartrate (Lopressor) 100 mg PO BID [facility] Last Admin: 11/12/19 20:27 Dose: 100 mg Documented by: Naloxone HCl (Narcan) 0.2 mg IV Q2M PRN PRN Reason: Opioid Reversal Physical examination: VITAL SIGNS: 98.1, 126, 18, 126/76, 99% room air GENERAL: Sitting up, on chair, less anxious EYES: Pupils equal. Conjunctiva normal. HEENT: External appearance of nose and ears normal, oral cavity grossly normal. NECK: JVD not raised; masses not palpable. HEART: Heart sounds irregular; no edema. LUNGS: Respiratory rate normal; clear to auscultation. ABDOMEN: Soft, nontender, liver spleen not palpable, no masses palpable. PSYCH: Alert and oriented x3; mood and affect anxious MUSCULOSKELETAL: Evidence of osteoarthritis in hands INVESTIGATIONS, reviewed in the clinical context: Potassium 4.5 creatinine 0.81 Previous testing White count 11.2 hemoglobin 10.8 platelets 01/24 depression 4.6 creatinine 0.7 to UA positive EKG tracing personally reviewed by me-atrial flutter fibrillation with rapid ventricular rate Chest x-ray film personally reviewed by me-cardiomegaly Assessment: -Persistent atrial fibrillation now with rapid ventricular rate uncontrolled symptomatic, POA -Chronic medical debility -Acute on Chronic congestive heart failure from diastolic dysfunction EF 60-65% -obesity BMI 31.2 -Chronic gait dysfunction uses a walker/wheelchair -Diabetes mellitus type 2 on oral hypoglycemic -Chronic lumbar stenosis with radiculopathy -Primary osteoarthritis of multiple joints -Chronic pain syndrome. Dr. Fischer from [facility] Plan: Patient started and IV Cardizem drip. On IV Lasix per cardiology. Cardiology medications. Also Lopressor 100 mg twice a day. Check renal function and bnp tomorrow
[2019-11-13] MEDS: ACETAMINOPHEN TAB 325 MG TAB PO PRN ×3 (04:07→15:07)
[2019-11-13 06:09] LABS: Glucose,Whole Blood 117 mg/dL (75-99)
[2019-11-13 06:20] LABS: Anisocytosis Slight; HCT 31.9 % (34.0-46.0); Hypochromasia Slight; MCH 27.8 pg (25.0-35.0); MCHC 31.3 g/dL (31.0-37.0); MCV 88.8 fL (80.0-100.0); Mean Platelet Volume 7.1; Platelet Count 266 k/uL (150-450); RBC 3.59 m/uL (3.80-5.40); RDW 16.1 % (11.5-15.5); WBC 8.1 k/uL (3.8-10.6)
[2019-11-13] MEDS: INSULIN ASPART (NovoLOG) 100 UNIT/ML VIAL SQ SCH ×4 (06:25→20:11)
[2019-11-13 06:28] LABS: Calcium 9.3 mg/dL (8.4-10.2); Potassium 3.8 mmol/L (3.5-5.1)
[2019-11-13] MEDS ORDERED: TORSEMIDE 20 MG TAB PO SCH (09:00)
[2019-11-13] MEDS: APIXABAN 5 MG TAB PO SCH ×2 (10:08→20:11)
[2019-11-13] MEDS: FUROSEMIDE 10 MG/ML 4 ML VIAL IV SCH ×3 (10:10→22:47)
[2019-11-13] MEDS: METOPROLOL TARTRATE 50 MG TAB PO SCH ×2 (10:10→20:10)
[2019-11-13 12:21] LABS: Glucose,Whole Blood 171 mg/dL (75-99)
[2019-11-13] MEDS ORDERED: MAGNESIUM HYDROXIDE 2,400 MG/10 ML CUP PO PRN (14:29)
[2019-11-13] MEDS ORDERED: DOCUSATE 100 MG CAP PO PRN (14:29)
--- NOTE | 2019-11-13 15:11 | PN ---
PROGRESS NOTE Mrs. Hunter is in atrial fibrillation, rate is better controlled. She still has edema of lower extremities. Her shortness of breath has improved. There is some erythematous changes on the legs where she has edema with some cellulitis. Vitals are stable. JVD 1 cm, S1-S2 heard normally, irregular rhythm noted, heart rate is better controlled. Lungs are clear with fine rales over both bases. Abdomen is soft. Lower extremity edema persists with some erythematous changes with possible cellulitis. I am recommending that we continue Lasix at 40 mg which will be increased to q.8 hours. Will discontinue Cardizem drip, leave her on oral agents, add Zaroxolyn 2.5 mg daily. Her ejection fraction is well preserved on echocardiogram. Will also add some Keflex 500 mg t.i.d. in view of cellulitis. MMODL / IJN: [id number] /
[2019-11-13] MEDS: DILTIAZEM 125 MG in SODIUM CHLORIDE 0.9% 100 ML IV SCH (15:28)
--- NOTE | 2019-11-13 16:49 | P.PN ---
Progress Note - Text Progress Note Date: 11/13/19 Chief Complaint: A. fib with rapid ventricular rate Interval history: This is a 79-year-old patient who follows with Dr. Dewitt. Chronic stable medical conditions include congestive heart failure from diastolic dysfunction EF 60-65%, medical debility, chronic gait dysfunction uses a walker or wheelchair, diabetes mellitus type 2, lumbar stenosis with radiculopathy, primary osteoarthritis. Patient has known chronic A. fib. Patient was due to cough for Carpal tunnel surgery. Was in the preoperative area. Found to be in atrial fibrillation with a rapid ventricular rate. Started on Cardizem drip. Today-feeling much better. Breathing much improved. Heart rate is controlled. In the 70s. Taken off the Cardizem drip. at the bedside. On IV Lasix. Review of systems: Was done for constitutional, cardiovascular, GI, pulmonary. relevant finding as above Active Medications Acetaminophen (Tylenol Tab) 650 mg PO Q6HR PRN PRN Reason: Fever and/ or Pain Last Admin: 11/13/19 15:07 Dose: 650 mg Documented by: Apixaban (Eliquis) 5 mg PO BID [facility] Last Admin: 11/13/19 10:08 Dose: 5 mg Documented by: Cephalexin (Keflex) 500 mg PO BID [facility] Docusate Sodium (Colace) 100 mg PO DAILY PRN PRN Reason: Constipation Furosemide (Lasix) 40 mg IV Q8HR [facility] Insulin Aspart (Novolog) 0 unit SQ [facility]; Protocol Last Admin: 11/13/19 12:56 Dose: 2 unit Documented by: Magnesium Hydroxide (Milk Of Magnesia) 2,400 mg PO DAILY PRN PRN Reason: Constipation Metolazone (Zaroxolyn) 2.5 mg PO DAILY [facility] Metoprolol Tartrate (Lopressor) 100 mg PO BID [facility] Last Admin: 11/13/19 10:10 Dose: 100 mg Documented by: Naloxone HCl (Narcan) 0.2 mg IV Q2M PRN PRN Reason: Opioid Reversal Physical examination: VITAL SIGNS: 97.9, 85, 16, 108/65, 99% room air GENERAL: Sitting up, on chair, more comfortable EYES: Pupils equal. Conjunctiva normal. HEENT: External appearance of nose and ears normal, oral cavity grossly normal. NECK: JVD not raised; masses not palpable. HEART: Heart sounds irregular; mild edema LUNGS: Respiratory rate normal; clear to auscultation. ABDOMEN: Soft, nontender, liver spleen not palpable, no masses palpable. PSYCH: Alert and oriented x3; mood and affect anxious MUSCULOSKELETAL: Evidence of osteoarthritis in hands DERMATOLOGICAL: Some cellulitis right lower extremity above the ankle INVESTIGATIONS, reviewed in the clinical context: White count 8.1 hemoglobin 10 potassium 3.8 creatinine 0.86 proBNP 2660 Previous testing White count 11.2 hemoglobin 10.8 platelets 01/24 depression 4.6 creatinine 0.7 to UA positive proBNP 3810 EKG tracing personally reviewed by me-atrial flutter fibrillation with rapid ventricular rate Chest x-ray film personally reviewed by me-cardiomegaly Assessment: -Persistent atrial fibrillation now with rapid ventricular rate uncontrolled symptomatic, POA, now controlled -Chronic medical debility -Acute on Chronic congestive heart failure from diastolic dysfunction EF 60-65%, some improvement -obesity BMI 31.2 -Chronic gait dysfunction uses a walker/wheelchair -Diabetes mellitus type 2 on oral hypoglycemic -Chronic lumbar stenosis with radiculopathy -Primary osteoarthritis of multiple joints -Chronic pain syndrome. Dr. Fischer [facility] -Right lower extremity distal cellulitis acute Plan: Cardizem drip was discontinued. Patient is on oral Keflex. We'll use Silvadene cream with Kerlix and Jesse wrap of the right lower extremity. Care was discussed the patient and . We'll order K pad for the lower coccygeal chronic pain. Follow renal function.
[2019-11-13 17:01] LABS: Glucose,Whole Blood 237 mg/dL (75-99)
[2019-11-13 20:07] LABS: Glucose,Whole Blood 229 mg/dL (75-99)
[2019-11-13] MEDS: CEPHALEXIN 500 MG CAP PO SCH (20:10)
[2019-11-13 20:51] LABS: Glucose,Whole Blood 238 mg/dL (75-99)
[2019-11-13 20:54] VITALS: TEMP 98
[2019-11-14 06:12] LABS: Glucose,Whole Blood 146 mg/dL (75-99)
[2019-11-14] MEDS: ACETAMINOPHEN TAB 325 MG TAB PO PRN (06:25)
[2019-11-14] MEDS: INSULIN ASPART (NovoLOG) 100 UNIT/ML VIAL SQ SCH ×2 (06:26→12:45)
[2019-11-14 07:04] LABS: Calcium 9.2 mg/dL (8.4-10.2); Potassium 3.7 mmol/L (3.5-5.1)
[2019-11-14] MEDS ORDERED: METOLAZONE 2.5 MG TAB PO SCH (09:00)
[2019-11-14 09:05] VITALS: BP 120/61; PULSE 105; RESP 19
[2019-11-14] MEDS: METOPROLOL TARTRATE 50 MG TAB PO SCH (09:06)
[2019-11-14] MEDS: CEPHALEXIN 500 MG CAP PO SCH (09:07)
[2019-11-14] MEDS: FUROSEMIDE 10 MG/ML 4 ML VIAL IV SCH (09:07)
[2019-11-14] MEDS: APIXABAN 5 MG TAB PO SCH (09:07)
--- NOTE | 2019-11-14 11:43 | P.PN ---
Subjective Progress Note Date: 11/14/19 This is a pleasant 79-year-old female with history of hypertension, diabetes, hyperlipidemia, persistent atrial fibrillation she follows with Dr. Ovalle in the office. She was scheduled to have a carpal tunnel procedure performed, just prior to the procedure, patient's heart rate went up into the 160 range. Patient also has put on a lot of weight recently since her diuretic dose as an outpatient was decreased, she has significant bilateral peripheral edema. The procedure was canceled and patient was advised to come to the emergency room for further evaluation and treatment. Patient actually had a similar admission to the hospital last month, was scheduled to have carpal tunnel surgery but because of atrial fibrillation with rapid ventricular response and was canceled. Patient has not and does not take her medications regularly at home, it is unsure as to whether or not she even took her beta ramses. She randomly takes her blood thinners. Chest x-ray on presentation he re showed minimal chronic left basilar atelectasis with no acute cardiopulmonary disease. EKG and presentation here showed atrial fibrillation with a rapid ventricular response. I pressure 118/60 at present, heart rate in the 120 range, 98% on room air. Blood cell count 11.2, hemoglobin 10.8, platelet count 328. Sodium 140, potassium 4.6, BUN 26, creatinine 0.7. BNP level 3810. Troponins negative. 11/12/2019 Patient was seen and examined this morning, continues to be in atrial fibrillation, heart rate in the 70s. Blood pressure 128/60 with a heart rate in the 70s,sodium 137, potassium 4.5, BUN 28, creatinine 0.8.we will continue the patient on IV Lasix, check lytes BUN and creatinine in the morning, repeat EKG in the morning. 11/14/2019 Patient was seen and examined this morning, sitting up in chair bedside, overall doing better. She states she does not feel short of breath, her edema has improved significantly. We will discontinue the IV Lasix today change the patient over to Lasix orally, we will also decrease the dose of Zaroxolyn to 2.5 mg every other day. Blood pressure 120/60, heart rate in the low 100s today, we will add a small dose of verapamil to her medication regime. Objective - Vital Signs Vital signs: Vital Signs Temp 98 F 11/13/19 20:00 Pulse 105 H 11/14/19 08:00 Resp 19 11/14/19 08:00 BP 120/61 11/14/19 08:00 Pulse Ox 99 11/14/19 08:00 Intake & Output 11/13/19 11/14/19 11/14/19 18:59 06:59 18:59 Intake Total 720 180 Balance 720 180 Weight 77.2 kg Intake: Oral 720 180 Other: # Voids 3 3 2 # Bowel Movements 0 - Exam PHYSICAL EXAMINATION: GENERAL: 79-year-old female in no acute distress at the time of my examination HEENT: Head is atraumatic, normocephalic. Pupils equal, round. Sclera anicteric. Conjunctiva are clear. Mucous membranes of the mouth are moist. N marcell is supple. There is elevated jugular venous pressure. No carotid bruit is heard. HEART EXAMINATION: S1 and S2 irregularly irregular systolic murmur is heard CHEST EXAMINATION: Lungs are clear to auscultation and precussion. No chest wall tenderness is noted on palpation or with deep breathing. ABDOMEN: Soft, nontender. Bowel sounds are heard. No organomegaly noted. EXTREMITIES: 2+ peripheral pulses with 1+ evidence of peripheral edema and no calf tenderness noted. Bilateral lower extremity redness noted NEUROLOGIC patient is awake, alert and oriented 3 . - Labs CBC & Chem 7: 11/13/19 05:48 11/14/19 05:31 Labs: Abnormal Lab Results - Last 24 Hours (Table) 11/13/19 11/13/19 11/13/19 Range/Units 12:20 16:49 20:06 Carbon Dioxide (22-30) mmol/L BUN (7-17) mg/dL Glucose (74-99) mg/dL POC Glucose (mg/dL) 171 H 237 H 229 H (75-99) mg/dL 11/13/19 11/14/19 11/14/19 Range/Units 20:49 05:31 06:10 Carbon Dioxide 32 H (22-30) mmol/L BUN 33 H (7-17) mg/dL Glucose 140 H (74-99) mg/dL POC Glucose (mg/dL) 238 H 146 H (75-99) mg/dL Assessment and Plan Plan: Plan: Assessment and plan #1 atrial fibrillation with rapid ventricular response #2 chronic persistent or fibrillation, noncompliance with anticoagulation #3 diabetes #4 hypertension #5 hyperlipidemia #6 diastolic congestive heart failure acute on chronic Plan Patient just recently had an echo less than a month ago that revealed a normal left ventricular systolic function. We'll discontinue the IV Lasix today and change patient over to oral diuretic diuretics. Decrease Zaroxolyn to 2-1/2 mg one tablet every other day. We will also add some verapamil to her medication regime to optimize heart rate control. She may be able to be discharged home once cleared by primary. DNP note has been reviewed, I agree with a documented findings and plan of care. Patient was seen and examined.
[2019-11-14 12:10] LABS: Glucose,Whole Blood 225 mg/dL (75-99)
[2019-11-14] MEDS: VERAPAMIL 40 MG TAB PO SCH ×2 (12:45→15:54)
[2019-11-14] MEDS ORDERED: FUROSEMIDE 40 MG TAB PO SCH (16:00)
[2019-11-14] MEDS ORDERED: CEPHALEXIN 500 MG CAP PO SCH (16:00)
--- NOTE | 2019-11-14 22:14 | P.DS ---
Providers Date of admission: 11/11/19 10:58 Expected date of discharge: 11/14/19 Attending physician: Jose Elias Morton Consults: 11/11/19 10:59 Consult Physician Urgent Consulting Provider: Valente Nagy Consult Reason/Comments: a fib w rvr Do you want consulting provider notified?: Yes Primary care physician: Stanislaw Esdras [facility] Course: Chief Complaint: A. fib with rapid ventricular rate Interval history: This is a 79-year-old patient who follows with Dr. Dewitt. Chronic stable medical conditions include congestive heart failure from diastolic dysfunction EF 60-65%, medical debility, chronic gait dysfunction uses a walker or wheelchair, diabetes mellitus type 2, lumbar stenosis with radiculopathy, primary osteoarthritis. Patient has known chronic A. fib. Patient was due to cough for Carpal tunnel surgery. Was in the preoperative area. Found to be in atrial fibrillation with a rapid ventricular rate. Started on Cardizem drip. Admitted with atrial fibrillation with a rapid ventricular rate, acute on chronic CHF exacerbation. Given Silvadene was Kerlix for cellulitis on the lower extremity. Today-A. fib rate is well-controlled. Patient feeling well. Breathing is stable. Tolerated diet. Care was discussed with the patient's . Consultation: Dr. TRINY Nagy Physical examination: VITAL SIGNS: 105, 19, 120/61, 99% room air GENERAL: Sitting up, on chair, comfortable EYES: Pupils equal. Conjunctiva normal. HEENT: External appearance of nose and ears normal, oral cavity grossly normal. NECK: JVD not raised; masses not palpable. HEART: Heart sounds irregular; mild edema LUNGS: Respiratory rate normal; clear to auscultation. ABDOMEN: Soft, nontender, liver spleen not palpable, no masses palpable. PSYCH: Alert and oriented x3; mood and affect anxious MUSCULOSKELETAL: Evidence of osteoarthritis in hands DERMATOLOGICAL: Some cellulitis right lower extremity above the ankle INVESTIGATIONS, reviewed in the clinical context: Potassium 3.7 creatinine 0.85 Previous testing White count 11.2 hemoglobin 10.8 platelets 01/24 depression 4.6 creatinine 0.7 to UA positive proBNP 3810 EKG tracing personally reviewed by me-atrial flutter fibrillation with rapid ventricular rate Chest x-ray film personally reviewed by me-cardiomegaly Assessment: -Persistent atrial fibrillation now with rapid ventricular rate uncontrolled symptomatic, POA, now controlled -Chronic medical debility -Acute on Chronic congestive heart failure from diastolic dysfunction EF 60-65%, -obesity BMI 31.2 -Chronic gait dysfunction uses a walker/wheelchair -Diabetes mellitus type 2 on oral hypoglycemic -Chronic lumbar stenosis with radiculopathy -Primary osteoarthritis of multiple joints -Chronic pain syndrome. Dr. Fischer from [facility] -Right lower extremity distal cellulitis acute Disposition: Home. Patient Condition at Discharge: Stable Plan - Discharge Summary Discharge Rx Participant: No New Discharge Prescriptions: New Verapamil [Isoptin] 40 mg PO TID #90 tab Cephalexin [Keflex] 500 mg PO TID #15 cap Metolazone [Zaroxolyn] 2.5 mg PO MOWEFR #30 tab Continue metFORMIN HCL ER [Glucophage Xr] 500 mg PO BID Metoprolol Tartrate [Lopressor] 100 mg PO BID #60 tab Nitroglycerin Sl Tabs [Nitrostat] 0.4 mg SUBLINGUAL Q5M PRN #30 tab PRN Reason: Chest Pain Glimepiride [Amaryl] 2 mg PO BID DULoxetine HCL [Cymbalta] 60 mg PO DAILY HYDROcodone/APAP 10-325MG [[place] 10-325] 1 tab PO Q6HR PRN PRN Reason: pain Apixaban [Eliquis] 5 mg PO BID tab Docusate [Colace] 100 mg PO DAILY PRN PRN Reason: Constipation Changed Torsemide [Demadex] 10 mg PO DAILY #90 tab Discharge Medication List metFORMIN HCL ER [Glucophage Xr] 500 mg PO BID 04/03/19 [History] Metoprolol Tartrate [Lopressor] 100 mg PO BID #60 tab 04/05/19 [Rx] Nitroglycerin Sl Tabs [Nitrostat] 0.4 mg SUBLINGUAL Q5M PRN #30 tab 04/05/19 [Rx] DULoxetine HCL [Cymbalta] 60 mg PO DAILY 09/30/19 [History] Glimepiride [Amaryl] 2 mg PO BID 09/30/19 [History] HYDROcodone/APAP 10-325MG [[place] 10-325] 1 tab PO Q6HR PRN 09/30/19 [History] Apixaban [Eliquis] 5 mg PO BID tab 10/01/19 [Rx] Docusate [Colace] 100 mg PO DAILY PRN 01/13/20 [History] Cephalexin [Keflex] 500 mg PO TID #15 cap 11/14/19 [Rx] Metolazone [Zaroxolyn] 2.5 mg PO MOWEFR #30 tab 11/14/19 [Rx] Torsemide [Demadex] 10 mg PO DAILY #90 tab 11/14/19 [Rx] Verapamil [Isoptin] 40 mg PO TID #90 tab 11/14/19 [Rx] Follow up Appointment(s)/Referral(s): Stanislaw Dewitt DO [Primary Care Provider] - 11/21/19 2:45 pm Maikol Ovalle MD [STAFF PHYSICIAN] - 11/29/19 1:45 pm Patient Instructions/Handouts: A-fib (Atrial Fibrillation) (DC) Discharge Disposition: HOME SELF-CARE
[2019-11-15] MEDS ORDERED: METOLAZONE 2.5 MG TAB PO SCH (09:00)
== END 2019-11-14 16:35 | disposition home or self-care (01) | DRG 308 ==
LOC: EC 09:03 → 3SCARD 10:58
PROVIDERS: ADMIT Hospitalist; ATTEND Hospitalist
DX: I48.19 Other persistent atrial fibrillation (principal); I50.33 Acute on chronic diastolic (congestive) heart failure; L03.115 Cellulitis of right lower limb; E78.5 Hyperlipidemia, unspecified; E11.9 Type 2 diabetes mellitus without complications; E66.9 Obesity, unspecified; R53.81 Other malaise; R26.9 Unspecified abnormalities of gait and mobility; M48.061 Spinal stenosis, lumbar region without neurogenic claudication; M54.16 Radiculopathy, lumbar region; M15.9 Polyosteoarthritis, unspecified; G89.4 Chronic pain syndrome; I11.0 Hypertensive heart disease with heart failure; Z53.9 Procedure and treatment not carried out, unspecified reason; Z79.899 Other long term (current) drug therapy; Z79.84 Long term (current) use of oral hypoglycemic drugs; Z79.01 Long term (current) use of anticoagulants; Z88.8 Allergy status to other drugs, medicaments and biological substances; Z68.31 Body mass index [BMI] 31.0-31.9, adult; Z98.49 Cataract extraction status, unspecified eye; Z91.14 Patient's other noncompliance with medication regimen
CPT/HCPCS: 36415; 71046; 80048; 80053; 81001; 82550; 83036; 83735; 83880; 84484; 85025; 85027; 85610; 85730; 87086; 93005; 96365; 96366; 96375; 96376; 99291